=== PATIENT | female | born 1950 | race Caucasian/White ===

== ENCOUNTER 2020-04-07 09:57 | Outpatient (CLI) | payer MEDICARE, SELFPAY ==
--- NOTE | ~2020-04-07 | CT_ITS ---
EXAMINATION: CT chest high resolution wo nv DATE: 04/07/2020 10:20 INDICATION: Sarcoidosis TECHNIQUE: Computed tomography (CT) of the chest was performed without intravenous contrast. The dose -length product (DLP) was 225.26 mGy-cm. Automated exposure control and iterative reconstruction tech nique were employed. COMPARISON: None FINDINGS: There is scarring and atelectasis of the upper lobes. There are tiny 1 to 2 mm nodules with upper lobe predominance which appear to be in a perilymphatic distribution. There is no pleural effu anoop or pneumothorax. The heart size is normal. There is mild mediastinal and bilateral hilar lymphad enopathy with some of the lymph nodes demonstrating calcification. Calcified coronary artery atherosc lerosis is noted. There is mild thoracic spondylosis. A stone is present in the nondistended gallblad emily. IMPRESSION: 1. Tiny upper lobe predominant nodules which appear to be in a perilymphatic distribution along with mild calcified mediastinal lymphadenopathy. Findings are compatible with given history of sarcoidosis . 2. Cholelithiasis without evidence of cholecystitis. Reviewed, dictated and finalized at location A. IMPRESSION: 1. Tiny upper lobe predominant nodules which appear to be in a perilymphatic di stribution along with mild calcified mediastinal lymphadenopathy. Findings are compatible with given history of sarcoidosis. 2. Cholelithiasis without evidence of cholecystitis.
== END 2020-04-07 09:58 | disposition home or self-care (01) ==
LOC: ANHIMG 10:02
PROVIDERS: PCP Internal Medicine; Visit Provider Internal Medicine Critical Care Medicine
DX: D86.9 Sarcoidosis, unspecified (principal); K80.20 Calculus of gallbladder without cholecystitis without obstruction
CPT/HCPCS: 71250

== ENCOUNTER 2020-05-17 09:25 | Outpatient (CLI) | payer MEDICARE, SELFPAY ==
--- NOTE | 2020-05-20 13:38 | WPDPFTINT ---
PFT Interpretation PFT Interpretation: DOS: 05/17/2020 REQUESTING: Favio Gomez REASON FOR TESTING: Sarcoidosis PULMONARY FUNCTION TESTS Results are reliable. Spirometry: INS478%, FVC 85%< FEV1% 73%, all are normal. CND46-44% is low at 53%, increased by 12%, not much, after bronchodilator. FEV1 and FVC showed no change with bronchodilator. Lung volumes: TLC 89%, normal. RV/TLC is above normal consistent with air trapping. Increased airway resistance 232%. Diffusion: DLCO 71%, this is mildly decreased. Flow volume loop: Mixed scooping of the expiratory limb. IMPRESSION: Air trapping is consistent with an obstructive process. Mild diffusion abnormality. No prior studies to compare. This study is consistent with sarcoidosis. Susy Shipley MD
== END 2020-05-17 09:26 | disposition home or self-care (01) ==
LOC: ANHPFT 09:26
PROVIDERS: PCP Internal Medicine; Visit Provider Internal Medicine Critical Care Medicine
DX: D86.9 Sarcoidosis, unspecified (principal)
CPT/HCPCS: 94060; 94726; 94729

== ENCOUNTER 2021-05-10 17:53 | Emergency (ER) | payer MEDICARE, SELFPAY ==
--- NOTE | 2021-05-10 19:34 | PC.NURSE ---
pt called at 1927, no response. pt called again at 1942, no response. assumed pt left facility.
== END 2021-05-10 19:34 | disposition left against medical advice (07) ==
LOC: ANHED 19:41
DX: Z53.21 Procedure and treatment not carried out due to patient leaving prior to being seen by health care provider (principal)
CPT/HCPCS: 99199

== ENCOUNTER 2021-09-11 07:51 | Outpatient (CLI) | payer MEDICARE, SELFPAY | END 2021-09-11 07:52 | disposition home or self-care (01) | LOC: ANHAUDIO 07:53 | PROVIDERS: Visit Provider Nurse Practitioner Family | DX: H93.19 Tinnitus, unspecified ear (principal); R42 Dizziness and giddiness; H90.3 Sensorineural hearing loss, bilateral | CPT/HCPCS: 92537; 92540; 92546; 92557; 92567 ==

== ENCOUNTER 2022-12-31 00:27 | Day surgery (SDC) | payer MEDICARE, SELFPAY ==
[2022-12-19 11:31] VITALS: BMI 31.0
--- NOTE | 2022-12-30 10:42 | PM.HPGS ---
History of Present Illness History of Present Illness Consent: Risks, benefits, and alternatives have been discussed and questions answered. Patient agrees to proceed with procedure. Chief complaint: abdominal pain Narrative: Nancy Galvan is a 72 year old female referred for colon cancer screening. Her last colonoscopy was 13 years ago. Review of Systems Review of Systems: All systems reviewed & are unremarkable except as noted in HPI and below PMFSH Past Medical History Medical History Anxiety state Asthma Backache Depressive disorder Diabetes Disorder of shoulder Dysuria Encounter for Papanicolaou smear for cervical cancer screening Herpes zoster hsv I & II Hip pain Hyperlipidemia Hypothyroidism Sarcoid Screening mammogram, encounter for Spinal enthesopathy Surgical History Surgical History Delivery by section 1971, 1973 History of appendectomy History of carpal tunnel surgery History of cataract surgery 11/19/17 left eye History of knee replacement procedure of right knee History of liver biopsy 1996 Hx of tonsillectomy Previous back surgery 10/30/18 Family History Family History Mother Thyroid disease Father Cerebrovascular accident Parkinson disease Malignant neoplasm of eye Transient cerebral ischemia Chronic obstructive lung disease Sibling Transient cerebral ischemia Social History Social History Smoking packs per day: 1 Smoking cigarettes per day: 20.0 Years smoked: 10 Smoking pack-years: 10.00 Smoking status: Former smoker Tobacco type: cigarettes Alcohol intake: current Alcohol use details: rarely Substance use: never Substance use type: does not use Living arrangements: with family Additional living arrangements comments: Occupation/Education: retired Gender identity (if verbalized by the patient): Female Sexual Orientation (if Verbalized by the Patient): Straight or Heterosexual Spiritual care concerns: No Meds Home Medications and Allergies Home Medications Medication Instructions Recorded Confirmed Type atorvastatin 40 mg tablet 40 mg PO DAILY 01/14/20 12/19/22 History metformin 500 mg tablet 1,000 mg PO BID 01/14/20 12/19/22 History glimepiride 1 mg tablet 1 mg PO DAILY 12/19/22 12/19/22 History levothyroxine 100 mcg tablet 100 mcg PO DAILY 12/19/22 12/19/22 History meloxicam 15 mg tablet 15 mg PO DAILY 12/19/22 12/19/22 History Allergies Allergy/AdvReac Type Severity Reaction Status Date / Time No Known Allergies Allergy Verified 12/31/22 11:49 Exam Const: General: alert Orientation/consciousness: patient oriented x3 Resp: Auscultation: clear to auscultation bilaterally Cardio: Rhythm: regular rhythm GI: GI Palp: Yes Soft to palpation and No Tenderness to palpation present (GI) Neuro: General: patient oriented x3 Assessment and Plan Assessment and plan (1) Colon cancer screening: Code(s): Z12.11 - Encounter for screening for malignant neoplasm of colon Status: Acute Assessment and Plan: Colonoscopy with possible biopsy or polypectomy or cautery or injection of substances.
[2022-12-31 11:49] VITALS: BP 141/81; PULSE 88; RESP 18; TEMP 36.6; O2SAT 98
[2022-12-31] MEDS: LACTATED RINGERS 1,000 ML 150 ML IV CONT (12:03)
[2022-12-31 12:04] LABS: Glucose Point of Care 177 mg/dl (65-105)
--- NOTE | 2022-12-31 12:15 | WPDANESEPPF ---
Anes - Initial Pre Proc Eval Procedure: Operation Date: 12/31/22 13:00 Proposed Procedures p Colonoscopy - Tomy Wolff MD Date/Time: 12/31/22 12:15 Surgeon: Tomy oWlff MD Pre Op Diagnosis: abdominal pain Patient Data Age: 72 Gender: F Height: 1.6 m Weight: 78.5 kg Last Vital Signs Temp 97.9 F 12/31/22 11:49 Pulse 88 12/31/22 11:49 Resp 18 12/31/22 11:49 BP 141/81 H 12/31/22 11:49 Pulse Ox 98 12/31/22 11:49 O2 Del Method Room Air 12/31/22 11:49 Allergies Allergy/AdvReac Type Severity Reaction Status Date / Time No Known Allergies Allergy Verified 12/31/22 11:49 Home Medications Medication Instructions Recorded Confirmed Type atorvastatin 40 mg tablet 40 mg PO DAILY 01/14/20 12/19/22 History metformin 500 mg tablet 1,000 mg PO BID 01/14/20 12/19/22 History glimepiride 1 mg tablet 1 mg PO DAILY 12/19/22 12/19/22 History levothyroxine 100 mcg tablet 100 mcg PO DAILY 12/19/22 12/19/22 History meloxicam 15 mg tablet 15 mg PO DAILY 12/19/22 12/19/22 History Laboratory Tests 12/31/22 12:00 POC Capillary Glucose 177 mg/dl H mg/dl (65-105) Patient hx anesthesia problems: none Family hx anesthesia problems: none Results Review: All pre-operative results and documents have been reviewed as part of the pre-operative evaluation. [facility] Past Medical History Medical History Anxiety state Asthma Backache Depressive disorder Diabetes Disorder of shoulder Dysuria Encounter for Papanicolaou smear for cervical cancer screening Herpes zoster hsv I & II Hip pain Hyperlipidemia Hypothyroidism Sarcoid Screening mammogram, encounter for Spinal enthesopathy Surgical History Surgical History Delivery by section 1971, 1973 History of appendectomy History of carpal tunnel surgery History of cataract surgery 11/19/17 left eye History of knee replacement procedure of right knee History of liver biopsy 1996 Hx of tonsillectomy Previous back surgery 10/30/18 Family History Family History Mother Thyroid disease Father Cerebrovascular accident Parkinson disease Malignant neoplasm of eye Transient cerebral ischemia Chronic obstructive lung disease Sibling Transient cerebral ischemia Social History Social History Smoking packs per day: 1 Smoking cigarettes per day: 20.0 Years smoked: 10 Smoking pack-years: 10.00 Smoking status: Former smoker Tobacco type: cigarettes Alcohol intake: current Alcohol use details: rarely Substance use: never Substance use type: does not use Living arrangements: with family Additional living arrangements comments: Occupation/Education: retired Gender identity (if verbalized by the patient): Female Sexual Orientation (if Verbalized by the Patient): Straight or Heterosexual Spiritual care concerns: No Anes - Eval Final PreProcedure Day of Procedure 12/31/22 12:15 Patient weight: obese Heart: regular rate and rhythm Lungs: clear to auscultation Airway: Mallampati scale class II Neurological: alert and oriented Last oral intake: >/= 8 hours ASA classification: III Emergent: no Anesthetic plan: proceed Anesthesia type and monitoring: general GIVS and standard monitoring Results Review: All pre-operative results and documents have been reviewed as part of the pre-operative evaluation. Informed Consent: The patient's anesthetic plan and its attendant risks and benefits were discussed with the patient/family/POA. Questions were solicited and answers provided to the satisfaction of the patient/family/POA.
[2022-12-31] MEDS: SIMETHICONE ORAL SUSPENSION 20 MG/0.3 ML 30 ML BOTTLE 0.6 ML IRRIGATION (12:44)
[2022-12-31 12:53] VITALS: BP 121/64; PULSE 83; RESP 20; O2SAT 95
[2022-12-31 13:03] VITALS: BP 126/68; PULSE 81; RESP 18; O2SAT 97
[2022-12-31 13:13] VITALS: BP 130/72; PULSE 78; RESP 19; O2SAT 97
== END 2022-12-31 13:17 | disposition home or self-care (01) ==
PROVIDERS: PCP Internal Medicine; Visit Provider Internal Medicine Gastroenterology
PROC: 0DJD8ZZ Inspection of Lower Intestinal Tract, Via Natural or Artificial Opening Endoscopic (ICD-10-PCS; CPT 45378; principal; 2022-12-31 13:00)
DX: Z12.11 Encounter for screening for malignant neoplasm of colon (principal); K57.30 Diverticulosis of large intestine without perforation or abscess without bleeding; K64.8 Other hemorrhoids; K64.4 Residual hemorrhoidal skin tags; E11.9 Type 2 diabetes mellitus without complications; E03.9 Hypothyroidism, unspecified; E78.5 Hyperlipidemia, unspecified; F32.A Depression, unspecified; F41.9 Anxiety disorder, unspecified; Z87.891 Personal history of nicotine dependence; Z79.84 Long term (current) use of oral hypoglycemic drugs; E66.9 Obesity, unspecified; Z68.30 Body mass index [BMI] 30.0-30.9, adult
CPT/HCPCS: G0121; 82948; J2704; J7120

== ENCOUNTER 2024-06-04 11:58 | Outpatient (CLI) | payer MEDICARE, SELFPAY ==
--- NOTE | ~2024-06-04 | MR_ITS ---
EXAMINATION: MR brain IAC wo/w con DATE: 06/04/2024 12:58 INDICATION: Vertigo. TECHNIQUE: Magnetic resonance imaging (MRI) of the brain, brainstem, and internal auditory canals was performed without and with 15 mL MultiHance intravenous contrast. COMPARISON: None. FINDINGS: There is no intracranial hemorrhage, acute infarction, or abnormal intracranial mass lesion . There are scattered areas of nonspecific increased T2-weighted signal intensity in the cerebral whi te matter and judy. The ventricles are normal in size. The paranasal sinuses are clear. There are lik jennifer changes of ocular lens replacement surgeries. The internal auditory canals, inner ears, tympanic cavities, and mastoid air cells are normal. IMPRESSION: 1. Mild nonspecific cerebral white matter disease and pontine disease, which likely represents chroni c small vessel ischemic disease. Reviewed, dictated and finalized at location A. IMPRESSION: 1. Mild nonspecific cerebral white matter disease and pontine disease, which karoline jarquin represents chronic small vessel ischemic disease.
== END 2024-06-04 11:59 | disposition home or self-care (01) ==
LOC: ANHIMG 11:59
PROVIDERS: PCP Internal Medicine; Visit Provider Internal Medicine
DX: R90.82 White matter disease, unspecified (principal); G93.89 Other specified disorders of brain; R42 Dizziness and giddiness
CPT/HCPCS: 70553; A9577

== ENCOUNTER 2024-07-17 13:59 | Outpatient (CLI) | payer MEDICARE, SELFPAY ==
[2024-07-17 14:29] LABS: Basophils Percent Auto 0.6 % (0.2-1.2); Eosinophils Absolute Auto 0.2 K/mm3 (0-0.3); Eosinophils Percent Auto 2.2 % (0-4.4); Hematocrit 41.3 % (37.0-47.0); Hemoglobin 14.2 g/dL (12.0-15.0); Immature Granulocyte Absolute 0.03 K/mm3 (0.00-0.031); Immature Granulocyte Percent A 0.4 % (0-0.5); Lymphocytes Absolute Auto 1.33 K/mm3 (0.9-3.2); Lymphocytes Percent Auto 19.1 % (18.3-44.2); Mean Corpuscular HGB Conc 34.4 g/dl (32-36); Mean Corpuscular Hemoglobin 32.9 pg (26-34); Mean Corpuscular Volume 95.6 fl (80-100); Mean Platelet Volume 10.8 fl (7.4-10.4); Monocytes Absolute Auto 0.4 K/mm3 (0.1-0.6); Monocytes Percent Auto 6.3 % (2.6-8.5); Neutrophils Percent Auto 71.4 % (45.5-73.1); Platelet Count Result 261 k/mm3 (150-375); Red Blood Count 4.32 M/mm3 (4.2-5.4); Red Cell Distribution Width 12.4 % (11.5-14.5)
[2024-07-17 14:48] LABS: Alanine Aminotransferase 18 U/L (6-35); Albumin Level 4.3 g/dL (3.5-5.1); Alkaline Phosphatase 106 U/L (38-126); Anion Gap 10 mmol/L (4-12); Aspartate Amino Transferase 27 U/L (14-36); Bilirubin,Total 0.5 mg/dL (0.2-1.3); Blood Urea Nitrogen 12 mg/dL (7-17); Calcium 9.6 mg/dL (8.4-10.2); Carbon Dioxide 27 mmol/L (22-30); Chloride 98 mmol/L (98-107); Cholesterol 155 mg/dL (0-200); Estimated Glomerular Filt Rate > 60; Glucose 197 mg/dL (65-110); HDL Direct 57 mg/dL; Potassium 4.5 mmol/L (3.4-5.0); Sodium 135 mmol/L (137-145); Triglycerides 254 mg/dL (<150)
[2024-07-17 14:57] LABS: Hemoglobin A1C 7.7 % (<5.7)
[2024-07-17 15:06] LABS: Creatinine Urine 124.9 mg/dL
[2024-07-17 15:08] LABS: Microalbumin Urine Random 8.8 mg/L (0-16.7)
[2024-07-17 15:15] LABS: Free T4 Free Thyroxine 0.94 ng/mL (0.78-2.19)
[2024-07-17 17:26] LABS: LDL Cholesterol Direct < 30 mg/dL
[2024-07-18 10:44] LABS: Triiodothyronine T3 Free 2.5 pg/mL (2.3-4.2)
== END 2024-07-17 14:00 | disposition home or self-care (01) ==
LOC: ANHLAB 14:03
PROVIDERS: PCP Internal Medicine; Visit Provider Internal Medicine
DX: E11.9 Type 2 diabetes mellitus without complications (principal); I10 Essential (primary) hypertension
CPT/HCPCS: 36415; 80053; 80061; 82043; 83036; 84439; 84443; 84481; 85025

== ENCOUNTER 2024-07-29 12:32 | Outpatient (CLI) | payer MEDICARE, SELFPAY ==
--- NOTE | 2024-07-29 14:25 | NEURO_ITS ---
Impression: # Known diabetic complains of numbness in all extremities. # Normal motor/sensory Nerve Conduction Study. # Normal needle/EMG exam. # Clinical correlation recommended. Problem could be related to small fiber neuropathy Nerve Conduction Studies Anti Sensory Summary Table Stim Site NR Peak (ms) P-T Amp (?V) Site1 Site2 Delta-P (ms) Dist (cm) Jerome (m/s) Left Median Anti Sensory (2-3nd Digit) Wrist 2.8 52.9 Wrist 2-3nd Digit 2.8 14.0 50 Wrist 2.8 30.7 Wrist 2-3nd Digit 2.8 14.0 50 Right Median Anti Sensory (2-3nd Digit) Wrist 2.8 27.3 Wrist 2-3nd Digit 2.8 14.0 50 Wrist 2.9 60.7 Wrist 2-3nd Digit 2.8 14.0 50 Left Radial Anti Sensory (Base 1st Digit) Wrist 1.8 54.6 Wrist Base 1st Digit 1.8 0.0 Right Radial Anti Sensory (Base 1st Digit) Wrist 1.9 23.2 Wrist Base 1st Digit 1.9 0.0 Left Sup Fibular Anti Sensory (Ant Lat Mall) 14 cm 3.4 6.7 14 cm Ant Lat Mall 3.4 16.0 47 Right Sup Fibular Anti Sensory (Ant Lat Mall) 14 cm 3.2 8.5 14 cm Ant Lat Mall 3.2 16.0 50 Left Sural Anti Sensory (Lat Mall) Calf 3.6 8.2 Calf Lat Mall 3.6 16.0 44 Right Sural Anti Sensory (Lat Mall) Calf 3.9 10.9 Calf Lat Mall 3.9 16.0 41 Left Ulnar Anti Sensory (5th Digit) Wrist 2.4 54.2 Wrist 5th Digit 2.4 14.0 58 Right Ulnar Anti Sensory (5th Digit) Wrist 2.2 42.2 Wrist 5th Digit 2.2 14.0 64 Motor Summary Table Stim Site NR Onset (ms) O-P Amp (mV) Site1 Site2 Delta-0 (ms) Dist (cm) Jerome (m/s) Left Median Motor (Abd Poll Brev) Wrist 3.5 3.2 Elbow Wrist 4.5 26.0 58 Elbow 8.0 1.4 Right Median Motor (Abd Poll Brev) Wrist 3.4 6.6 Elbow Wrist 5.3 28.0 53 Elbow 8.7 5.4 Left Peroneal Motor (Vastus Med) Ankle 4.4 3.0 Popit Ankle 8.7 38.0 44 Popit 13.1 3.4 Right Peroneal Motor (Vastus Med) Ankle 4.0 1.4 Popit Ankle 8.9 37.0 42 Popit 12.9 1.5 Left Tibial Motor (Abd Cristina Brev) Ankle 4.9 6.0 Knee Ankle 8.1 38.0 47 Knee 13.0 3.0 Right Tibial Motor (Abd Cristina Brev) Ankle 4.6 6.3 Knee Ankle 9.8 37.0 38 Knee 14.4 2.8 Left Ulnar Motor (Abd Dig Minimi) Wrist 2.7 8.4 A Elbow Wrist 5.0 28.0 56 A Elbow 7.7 6.4 Right Ulnar Motor (Abd Dig Minimi) Wrist 2.4 7.5 A Elbow Wrist 5.2 28.0 54 A Elbow 7.6 6.0 F Wave Studies NR F-Lat (ms) L-R F-Lat (ms) Left Median (Mrkrs) (Abd Poll Brev) 26.56 0.07 Right Median (Mrkrs) (Abd Poll Brev) 26.49 0.07 Left Peroneal (Mrkrs) (EDB) 56.27 0.10 Right Peroneal (Mrkrs) (EDB) 56.17 0.10 Left Tibial (Mrkrs) (Abd Hallucis) 55.22 1.20 Right Tibial (Mrkrs) (Abd Hallucis) 56.41 1.20 Left Ulnar (Mrkrs) (Abd Dig Min) 25.93 1.38 Right Ulnar (Mrkrs) (Abd Dig Min) 27.31 1.38 EMG Side Muscle Nerve Root Ins Act Fibs Amp Dur Recrt Comment Right 1stDorInt Ulnar C8-T1 Nml Nml Nml Nml Nml Right Ext Indicis Radial (Post Int) C7-8 Nml Nml Nml Nml Nml Right Ext Digitorum Radial (Post Int) C7-8 Nml Nml Nml Nml Nml Right BrachioRad Radial C5-6 Nml Nml Nml Nml Nml Right PronatorTeres Median C6-7 Nml Nml Nml Nml Nml Right Abd Poll Brev Median C8-T1 Nml Nml Nml Nml Nml Right ABD Dig Min Ulnar C8-T1 Nml Nml Nml Nml Nml Right AntTibialis Dp Br Fibular L4-5 Nml Nml Nml Nml Nml Right Gastroc Tibial S1-2 Nml Nml Nml Nml Nml Right Fibularis Long Sup Br Fibular L5-S1 Nml Nml Nml Nml Nml Right Flex Dig Long Tibial L5-S2 Nml Nml Nml Nml Nml Right Ext Dig Brev Dp Br Fibular L5, S1 Nml Nml Nml Nml Nml Right QuadratusFem QuadFemoris L4-5, S1 Nml Nml Nml Nml Nml Left AntTibialis Dp Br Fibular L4-5 Nml Nml Nml Nml Nml Left Gastroc Tibial S1-2 Nml Nml Nml Nml Nml Left Fibularis Long Sup Br Fibular L5-S1 Nml Nml Nml Nml Nml Left Flex Dig Long Tibial L5-S2 Nml Nml Nml Nml Nml Left Ext Dig Brev Dp Br Fibular L5, S1 Nml Nml Nml Nml Nml Left QuadratusFem QuadFemoris L4-5, S1 Nml Nml Nml Nml Nml Left 1stDorInt Ulnar C8-T1 Nml Nml Nml Nml Nml Left Ext Indicis Radial (Post Int) C7-8 Nml Nml Nml Nml Nml Left Ext Digitorum Radial (Post Int) C7-8 Nml Nml Nml Nml Nml Left BrachioRad Radial C5-6 Nml Nml Nml Nml Nml Left PronatorTeres Median C6-7 Nml Nml Nml Nml Nml Left Abd Poll Brev Median C8-T1 Nml Nml Nml Nml Nml Left ABD Dig Min Ulnar C8-T1 Nml Nml Nml Nml Nml MTDD
== END 2024-07-29 12:33 | disposition home or self-care (01) ==
LOC: ANHNEURO 12:34
PROVIDERS: PCP Internal Medicine; Visit Provider Internal Medicine
DX: R20.2 Paresthesia of skin (principal); E11.9 Type 2 diabetes mellitus without complications
CPT/HCPCS: 95886; 95913

== ENCOUNTER 2024-11-13 10:43 | Outpatient (CLI) | payer MEDICARE, SELFPAY ==
[2024-11-13 11:44] LABS: Basophils Percent Auto 0.6 % (0.2-1.2); Eosinophils Absolute Auto 0.2 K/mm3 (0-0.3); Eosinophils Percent Auto 3.2 % (0-4.4); Hematocrit 44.9 % (37.0-47.0); Hemoglobin 14.8 g/dL (12.0-15.0); Immature Granulocyte Absolute 0.02 K/mm3 (0.00-0.031); Immature Granulocyte Percent A 0.3 % (0-0.5); Lymphocytes Absolute Auto 1.03 K/mm3 (0.9-3.2); Lymphocytes Percent Auto 15.1 % (18.3-44.2); Mean Corpuscular Hemoglobin 31.6 pg (26-34); Mean Corpuscular Volume 95.9 fl (80-100); Mean Platelet Volume 11.8 fl (7.4-10.4); Monocytes Absolute Auto 0.4 K/mm3 (0.1-0.6); Monocytes Percent Auto 6.4 % (2.6-8.5); Neutrophils Absolute Auto 5.1 K/mm3 (1.3-6.7); Neutrophils Percent Auto 74.4 % (45.5-73.1); Platelet Count Result 219 k/mm3 (150-375); Red Blood Count 4.68 M/mm3 (4.2-5.4); Red Cell Distribution Width 13.4 % (11.5-14.5); White Blood Count 6.8 K/mm3 (4.5-10.0)
[2024-11-13 12:14] LABS: Alanine Aminotransferase 21 U/L (6-35); Albumin Level 4.3 g/dL (3.5-5.1); Alkaline Phosphatase 125 U/L (38-126); Anion Gap 11 mmol/L (4-12); Aspartate Amino Transferase 23 U/L (14-36); Bilirubin,Total 0.7 mg/dL (0.2-1.3); Blood Urea Nitrogen 14 mg/dL (7-17); Calcium 9.9 mg/dL (8.4-10.2); Carbon Dioxide 27 mmol/L (22-30); Chloride 100 mmol/L (98-107); Cholesterol 175 mg/dL (0-200); Estimated Glomerular Filt Rate > 60; Glucose 148 mg/dL (65-110); HDL Direct 58 mg/dL; Sodium 138 mmol/L (137-145); Triglycerides 252 mg/dL (<150)
[2024-11-13 12:22] LABS: Creatinine Urine 79.2 mg/dL
[2024-11-13 12:26] LABS: LDL Cholesterol Direct < 30 mg/dL
[2024-11-13 12:28] LABS: MALB Creatinine Ratio 10.1 mg/g (0-30)
[2024-11-13 12:44] LABS: Hemoglobin A1C 7.7 % (<5.7)
[2024-11-13 14:21] LABS: Free T3 2.82 pg/mL (2.45-5.93)
== END 2024-11-13 10:44 | disposition home or self-care (01) ==
LOC: ANHLAB 10:46
PROVIDERS: PCP Internal Medicine; Visit Provider Internal Medicine
DX: E11.9 Type 2 diabetes mellitus without complications (principal); I10 Essential (primary) hypertension
CPT/HCPCS: 36415; 80053; 80061; 82043; 83036; 84439; 84443; 84481; 85025

== ENCOUNTER 2025-02-16 08:27 | Outpatient (CLI) | payer MEDICARE, SELFPAY ==
--- NOTE | ~2025-02-16 | MM_ITS ---
PROCEDURE: MM SCREENING NIKITA BI W GEMMA INDICATION: Asymptomatic, referred for screening mammogram COMPARISON: 09/28/2013 through 04/19/2007 TECHNIQUE: Digital breast tomosynthesis craniocaudal and mediolateral oblique views of Both breasts w ere obtained with computer-aided detection to assist in interpretation of the study. FINDINGS: There are scattered areas of fibroglandular density. No focal dominant mass, architectural distortion, or suspicious microcalcifications are identified. There are no features to suggest malignancy. IMPRESSION: No evidence of malignancy in the breast. Recommend continued screening mammography BI-RADS 1, NEGATIVE Reviewed, dictated and finalized at location B.
--- OUTSIDE RECORDS SUMMARY | 2025-02-16 08:33 | XMS_ITS | CONTINUITY OF CARE DOCUMENT ---
Author Name ravi rodrigues Address Unknown Organization [facility] Office Address [address] [place] [address] Phone [phone] Care Team Providers Care Corporate General Manager Name Role Phone Caleb Guerrero MD Unavailable [phone] EDNA COOK DO Unavailable INSURANCE PROVIDERS Payer name Policy type / Coverage type [place] [employer] ID [place] MED[place] Medicare [id number]
--- OUTSIDE RECORDS SUMMARY | 2025-02-16 08:34 | XMS_ITS | Clinical Summary ---
Author Organization [facility] Address [address] [place] [address] Phone Care Team Providers Care Chemical Research Worker Name Role Phone Kvng Palomares MD Primary Care Provider Allergies No known active allergies Medications levothyroxine (SYNTHROID) 100 mcg Oral tablet Take 75 mcg by mouth daily . Active ezetimibe (ZETIA) 10 mg Oral tablet Take 10 mg by mouth daily. Active simvastatin (ZOCOR) 40 mg Oral tablet Take 40 mg by mouth daily. Active aspirin (GINI) 81 mg Oral Tab Take by mouth daily at bedtime . Active celecoxib (CELEBREX) 200 mg Oral capsule Take 1 Cap by mouth 2 times daily with meals. 60 Cap 0 3 Active metFORMIN (GLUCOPHAGE) 500 mg tablet Take 500 mg by mouth 2 times daily with meals. Active atorvastatin (LIPITOR) 40 mg tablet Take 40 mg by mouth daily with supper. Active PARoxetine HCl (PAXIL) 10 mg tablet Take 10 mg by mouth daily. Active naproxen sodium (ALEVE) 220 mg Tablet Take 440 mg by mouth 1 time daily as needed for Pain, Moderate. Active budesonide-form oterol (SYMBICORT) 160-4.5 mcg/actuation HFA Aerosol Inhaler Take 2 Puffs by inhalation 2 times daily. Active diazePAM (VALIUM) 5 mg tablet Take 1 Tablet (5 mg) by mouth every 8 hours as needed for Spasm. 90 Tablet 9 Active oxyCODONE (ROXICODONE) 10 mg tablet Take 1 Tablet (10 mg) by mouth every 4 hours as needed for Pain. 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 H/O sarcoidosis 01/06/2013 Hypothyroidism 01/06/2013 Hyperlipidemia 01/06/2013 Arthritis of knee, degenerative 12/31/2012 Immunizations Immunization Administration Dates Next Due Influenza Seasonal Unspecified Formulation IM ,05/17/2012 Family History Medical History Relation Name Comments Cancer Brother 1 Stroke Brother 2 Other Daughter Hypertension Father Stroke Father Healthy Son Relation Name Status Comments Brother 1 Alive Brother 2 Alive Daughter Alive Father Mother Son Alive Social History Tobacco Use Types Packs/Day Years Used Date Smoking Tobacco: Former Cigarettes Q uit: 05/09/1983 Smokeless Tobacco: Never Alcohol Use Standard Drinks/Week Comments Yes 0 (1 standard drink = 0.6 oz pur e alcohol) rarely Comments No Sex and Gender Information Value Date Recorded Sex Assigned at Not on file Legal Sex Female 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 Gender Identity Not on file Sexual Orientation Not on file Occupation Industry Job Start Date Job End Date Not on file Not on file Not on file Not on file Not on file Not on file Not on file Not on file Last Filed Vital Signs Vital Sign Reading Time Taken Comments Blood Pressure 129/65 11/03/2018 1:24 AM LABOR CONTRACT ANALYST Pulse 85 11/03/2018 1:24 AM LABOR CONTRACT ANALYST Temperature 37.1 C (98.8 F) 11/03/2018 1:24 AM LABOR CONTRACT ANALYST Respiratory Rate 16 11/03/2018 1:24 AM LABOR CONTRACT ANALYST Oxygen Saturation 94% 11/03/2018 1:24 AM LABOR CONTRACT ANALYST Inhaled Oxygen Concentration - - Weight 89.4 kg (197 lb 0.1 oz) 10/29/2018 7:00 P M LABOR CONTRACT ANALYST Height 160 cm (5' 3) 10/29/2018 7:00 PM LABOR CONTRACT ANALYST Body Mass Index 34.9 10/29/2018 7:00 PM LABOR CONTRACT ANALYST Plan of Treatment Health Maintenance Due Date Last Done Comments DIABETES ANNUAL FOOT EXAM 1970 DIABETES ANNUAL RETINAL EXAM 1970 DIABETES MICROALBUMIN ANNUAL SCREEN 1970 LDL CHOLESTEROL ANNUAL 1970 DTAP/TDAP/TD VACCINES (1 - Tdap) 1971 PNEUMOCOCCAL VACCINE 50+ YEA RS (1 of 2 - PCV) 1971 BREAST CANCER SCREENING 1992 COLORECTAL SCREENING 1997 Colorectal Cancer Screening 1997 FIT-DNA Q 3 years 1997 FIT/FOBT Q 1 year 1997 Flex Sig/CT Colonography Q 5 years 1997 ZOSTER VACCINE (1 of 2) 2002 OSTEOPOROSIS SCREENING 2017 DIABETES HBA1C Q 6 MONTHS 08/14/2020 02/12/2020 INFLUENZA VACCINE (#1) 2024 0, 08/04/2019, 05/17/2018, Additional history exists RSV VACCINE (60+ or ) (1 - 1-dose 75+ series) 2027 Medical Devices Implanted Type Area Asbestos Worker Device Identifier Shelf Expiration Date Model / Serial / Lot Sealant Floseal 10ml [id number] - [id number] Implanted:Qty: 1 on 06/06/2012 by Familia Carpenter MD at [facility] Biological CHAVIS- BIOSCIENCE 09/15/2013 [id number] / / [id number] Infuse Protein Kit [id number] - [id number] Implanted:Qty: 1 on 06/06/2012 at [facility] Spine Lumbar MEDTRONIC- SOFAMOR DANEK 11/14/2014 [id number] / / [id number] Sealant Floseal 10ml [id number] - [id number] Implanted:Qty: 1 on 06/06/2012 by Familia Carpenter MD at [facility] Biological N/A: Spine Lumbar CHAVIS- BIOSCIENCE 09/15/2013 [id number] / / [id number] Log - Bone & Biologicals - 1 - Bone Cube Canc 15ml [id number] Implanted:Qty: 1 on 06/06/[address] [facility] Bone Spine Lumbar ALLOSOURCE 05/23/2016 [id number] / [id number] / Log - Bone & Biologicals - 1 - Bone Cube Canc 15ml [id number] Implanted:Qty: 1 on 06/06/[address] [facility] Bone N/A: Spine Lumbar ALLOSOURCE 06/05/2016 [id number] / [id number] / Allgrft Spcr Lmnry T-Plif 11mm [id number] - [id number] Implanted:Qty: 1 on 06/06/2012 by Familia Carpenter MD at [facility] Bone N/A: Spine Lumbar MUSCULOSKELETAL TRANSPLANT FOU 01/27/2015 [id number] / [id number] / Cement [place] G-Hv 40g 145325 - [id number] Implanted:Qty: 1 on 01/05/2013 by Clarence Fuentes MD at [facility] Cement Right: Knee BIOMET INC 07/16/2014 [id number] / / [id number] Hemostatic Surgiflo 8ml W/Thrombin 2994 - [id number] Implanted:Qty: 1 on 10/29/2018 by Familia Carpenter MD at [facility] Hemostatic N/A: Back J&J- ETHICON INC 02/14/2020 2994 / / [id number] Hemostatic Surgiflo 8ml W/Thrombin 2994 - [id number] Implanted:Qty: 1 on 10/29/2018 by Familia Carpenter MD at [facility] Hemostatic N/A: Back J&J- ETHICON INC 02/14/2020 2994 / / [id number] Hemostatic Surgiflo 8ml W/Thrombin 2994 - [id number] Implanted:Qty: 1 on 10/29/2018 by Familia Carpenter MD at [facility] Hemostatic N/A: Back J&J- ETHICON INC 02/14/2020 2994 / / [id number] Hemostatic Surgiflo 8ml W/Thrombin 2994 - [id number] Implanted:Qty: 1 on 10/29/2018 by Familia Carpenter MD at [facility] Hemostatic N/A: Back J&J- ETH[employer]ON INC 02/14/2020 2994 / / [id number] Comp Tib Cocr Finned 67mm 199932 - [id number] Implanted:Qty: 1 on 01/05/2013 by Clarence Fuentes MD at [facility] Knee Right: Knee BIOMET INC 11/13/2022 [id number] / / [id number] Patella 3peg Series A [id number] - [id number] Implanted:Qty: 1 on 01/05/2013 by Clarence Fuentes MD at [facility] Knee Right: Knee BI[employer]ET INC 07/16/2017 285045 / / [id number] Comp Fem Vngrd Cr Intrlk Rt 65mm 485078 - [id number] Implanted:Qty: 1 on 01/05/2013 by Clarence Fuentes MD at [facility] Knee Right: Knee BIOMET INC 11/13/2022 424761 / / [id number] Brng Tib Vng Cr 10x63/67 972672 - [id number] Implanted:Qty: 1 on 01/05/2013 by Clarence Fuentes MD at [facility] Knee Right: Knee BI[employer]ET INC 10/16/2017 [id number] / / [id number] Bryant Xpdm Crv W/Line 65mm 1797-71-065 - [id number] Implanted:Qty: 2 on 10/29/2018 by Familia Carpenter MD at [facility] Bryant N/A: Back J&J- DEPUY SPINE INC [id number] / / Description:load #39 sterilized 10/13/18 Screw Exp Poly 7x45mm 1797-08-215 - [id number] Implanted:Qty: 2 on 06/06/[address] [facility] Screw N/A: Spine Lumbar J&J- DEPUY SPINE INC 342 / / Description:Load 47, 2011 Screw Exp Poly 6x45mm 17903-27-875 - [id number] Implanted:Qty: 4 on 10/29/2018 by Familia Carpenter MD at [facility] Screw N/A: Back J&J- DEPUY SPINE INC 420 / / Description:load #39 sterilized 10/13/18 Setscrew Inner 179 - [id number] Implanted:Qty: 6 on 10/29/2018 by Familia Carpenter MD at [facility] Screw N/A: Back J&J- DEPUY SPINE INC / / Description:load #39 sterilized 10/13/18 All Depuy spinal hardware was processed on requisition, [id number]. Parastructure Vivigen Matrix 10ml Bl-1500-003 - [id number] Implanted:Qty: 1 on 10/29/2018 by Familia Carpenter MD at [facility] Tissue N/A: Back LIFENET 10/14/2019 -1500-003 / [id number] / Description:[facility][id number] [facility] Vivigen Matrix 10ml -1500-003 - [id number] Implanted:Qty: 1 on 10/29/2018 by Familia Carpenter MD at [facility] Tissue N/A: Back LIFENET 10/14/2019 -1500-003 / [id number] / Description:REQ#[id number] Explanted Type Area Asbestos Worker Device Identifier Shelf Expiration Date Model / Serial / Lot Bryant Xpdm 5.5 Ti Prebnt 45mm 1797-72-045 - [id number] Implanted:Qty: 2 on 06/06/[address] [facility] Explanted:Qty: 2 on 10/29/2018 by Familia Carpenter MD at [facility] Bryant N/A: Spine Lumbar J&J- DEPUY SPINE INC 5 / / Description:Load 47, er 2011 Screw Exp Poly 6x45mm 1796-12-645 - [id number] Implanted:Qty: 2 on 06/06/[address] [facility] Explanted:Qty: 2 on 10/29/2018 by Familia Carpenter MD at [facility] Screw N/A: Spine Lumbar J&J- DEPUY SPINE INC 5 / / Description:Load 47, Septemb er [facility] - [id number] Implanted:Qty: 4 on 06/06/[address] [facility] Explanted:Qty: 4 on 10/29/2018 by Familia Carpenter MD at [facility] Screw N/A: Spine Lumbar J&J- DEPUY SPINE INC 0 / / Description:Load 47, Sept er 2011 Insurance MEDICARE PART A AND B Advance Directives For more information, please contact: [phone] Documents on File Type Date Recorded Patient Pie Topper Expl anation Advance Directive Living Will 10/13/2018 8:16 AM Advance Directive Living Will * Full Code (Latest Code Status on File) Date Activated Date Inactivated Comments 10/29/2018 12:16 PM 11/03/2018 5:21 PM * Full Code Date Activated Date Inactivated Comments 10/29/2018 5:42 AM 10/29/2018 12:16 PM * Full Code Date Activated Date Inactivated Comments 01/05/2013 1:37 PM 01/08/2013 1:34 PM * Full Code Date Activated Date Inactivated Comments 01/05/2013 8:19 AM 01/05/2013 1:37 PM * Full Code Date Activated Date Inactivated Comments 01/05/2013 7:35 AM 01/05/2013 8:19 AM Care Teams Chemical Research Worker Relationship Specialty Start Date End Date Kvng Palomares MD [address] [place] [address] PCP - General Internal Medicine 10/24/18
--- OUTSIDE RECORDS SUMMARY | 2025-02-16 08:34 | XMS_ITS | Data Portability ---
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 Name Role Phone EDNA PALOMARES Primary Care Provider Assessment Encounter Date Assessment Date Assessment LastModified by Organization Details LastModified Time 12/16/2023 12/16/2023 Blood work she can take some Pepcid [id number] r diagnosis and assessment and plan have been discussed obtain old records if she loses any more weight she is to call for further evaluation otherwise she can see me in 3 months Not available 12/16/2023 21:49:53 05/07/2024 05/07/2024 exam eduardo is unremarkable healthy lifestyle care instructions for overweight low-fat diet low-salt I nerve conduction studies for paresthesias MRI of the brain for her vertigo to include internal auditory meatus follow up after testing [email or web address] Not available 05/16/2024 20:08:02 07/16/2024 07/16/2024 she has to do more walking continue current therapy we will see her back in 3 months with blood work prior she is doing better with diet and we will start evaluating and getting things scheduled to close her quality gaps [email or web address] Not available 07/16/2024 21:47:30 10/08/2024 10/08/2024 healthy lifestyle care instructions. Mammogram. Blood work. Diabetic foot exam. See eye doctor yearly. We will continue current therapy follow up in 4 months [email or web address] Not available 10/25/2024 14:58:37 Plan of Treatment Reminders Order Date Submit Date Provider Last Modified By Organization Details Last Modified Time Details Appointments ANY 15 2024 11:00A Megan Palomares MD Not available Not available Not available Lab albumi n/jaspal parks , mass ratio, urine 2024 [facility], [address] [place] [address], [address], [place], [address], 11/16/2024 15:02:35 HbA1c (hemog lobin A1c), blood 2024 025 [facility], [address], [address] [facility], [place], [address], 11/16/2024 15:02:34 lipid panel, serum 2024 025 [facility], [address] [place] [address], [address], [place], [address], 11/16/2024 15:02:34 CBC w/ auto diff 2024 025 [facility], [address] [place] [address], [address], [place], [address], 11/16/2024 15:02:35 CMP, serum or plasma 2024 025 [facility], [address] [place] [address], [address], [place], [address], 11/16/2024 15:02:34 TSH, serum or plasma 2024 025 [facility], [address] [place] [address], [address], [place], [address], 11/16/2024 15:02:35 T4, free, serum 2024 025 [facility], [address] [place] [address] Alex, [address], [place], [address], 01/12/2025 14:55:52 T3, free, serum or plasma 2024 025 [facility], [address], [address], [place], [address], 11/16/2024 15:02:34 HbA1c (hemog lobin A1c), blood 2023 [facility], [address] [facility] [address], [address], [place], [address], 07/24/2024 10:00:29 albumi n/crea tinine , mass ratio, urine 2023 [facility], [facility] [address], [address], [place], [address], 07/24/2024 10:00:29 unlist ed lab - T4, free 2023 024 [facility], [facility] [address], [address], [place], [address], 07/24/2024 10:00:29 T3, free, serum or plasma 2023 024 [facility], [address], [address], [place], [address], 10/20/2024 13:04:04 TSH, ultra- sensit jaime, serum 2023 024 [facility], [facility] [address], [address], [place], [address], 07/24/2024 10:01:32 lipid panel, serum 2023 024 [facility], [address], [address], [place], [address], 07/24/2024 10:00:29 CMP, serum or plasma 2023 024 [facility], [address], [address], [place], [address], 07/24/2024 10:00:29 CBC w/ auto diff 2023 024 [facility], [address], [address], [place], [address], 07/24/2024 10:00:29 HbA1c (hemog lobin A1c), blood 2023 024 [facility], [address], [address], [place], [address], 05/12/2024 15:44:56 lipid panel, serum 2023 024 [facility], [address], [address], [place], [address], 05/07/2024 20:32:14 CMP, serum or plasma 2023 024 [email or web address] [facility], [address], [address], [place], [address], 07/20/2024 22:32:41 CBC w/ auto diff 2023 024 [facility], [address], [address], [place], [address], 05/12/2024 15:44:55 unlist ed lab - T4, free 2023 024 [facility], [address], [address], [place], [address], 05/12/2024 15:44:56 T3, free, serum or plasma 2023 024 [email or web address] [facility], [address], [address], [place], [address], 07/20/2024 22:32:41 TSH, ultra- sensit jaime, serum 2023 024 [facility], [address], [address], [place], [address], 05/12/2024 15:44:56 HbA1c (hemog lobin A1c), blood 2023 024 [facility], [address], [address], [place], [address], 12/18/2023 01:17:04 CBC w/ auto diff 2023 024 [facility], [address], [address], [place], [address], 12/18/2023 01:17:04 lipid panel, serum 2023 024 [facility], [address], [address], [place], [address], 12/18/2023 01:17:05 CMP, serum or plasma 2023 024 [facility], [address] [facility] [address], [place], [address], 12/18/2023 01:17:05 TSH, ultra- sensit jaime, serum 2023 024 [facility], [address], [address], [place], [address], 12/18/2023 01:17:05 T3, free, serum or plasma 2023 024 [email or web address], [address], [address], [place], [address], 04/10/2024 13:32:18 unlist ed lab - T4, free 2023 024 [facility], [address], [address], [place], [address], 04/10/2024 13:32:18 Referral podiat rist referr al 2024 025 [facility], [address], [address], [place], [address], 12/24/2024 14:02:26 Procedures None record ed. Surgeries None record ed. Imaging MAMMO, screen ing, digita l, bilate ral 2024 025 [facility] (Imaging), [address] [place] [address] [address]te [facility], [place], [address], 02/15/2025 16:01:10 MRI, brain + legal internship al audito ry canal, w/wo contra st 2023 024 [facility] (Imaging), [address] [place] [address] [place] [address], [address], 06/04/2024 17:45:45 nerve conduc tion study - NCS B/L Arms and Legs 2023 024 [facility] (Cardiology & Emg), [address] [place] [address] [place] [address], [address], 07/29/2024 16:38:18 Medication Orders None record ed. Patient TargetsNo targets recorded. Patient Instructions Encounter Date Encounter Id Patient Instructions Last Modified By Organization Details Last Modified Time 05/07/2024 [id number] A healthy lifestyle: care instructions [email or web address] Not available 05/07/2024 13:23:13 07/16/2024 [id number] A healthy lifestyle: care instructions [email or web address] Not available 07/16/2024 15:27:26 10/08/2024 [id number] A healthy lifestyle: care instructions Not available 10/08/2024 13:17:21 Reason for Referral Non Cdl Driver Referral for Type 2 diabetes mellitus Referring Physician: Edna Palomares, Internal Medicine, Encounter Date: 10/08/2024 Results Created Date Observation Date Name Description Value Unit Range Abnormal Flag Note LastModifiedBy Organization Detail LastModifiedTime 12/17/19 24 12/17/2023 Hemog lobin A1c/H emogl obin. total in Blood by HPLC hemoglobin A1C/hemoglob in.total in blood high HA1C Not Available Not Available 11/14 10:23:07 12/17/19 24 12/17/2023 Thyro tropi n [Unit s/vol ume] in Serum or Plasm a thyroid-stim ulating hormone high thyro id-st imula ting hormo ne Not Available Not Available 11/23/2024 10:23:07 12/17/19 24 12/17/2023 Triio dothy marleny e (T3) Free [Mass /volu me] in Serum or Plasm a free T3 free T3 Not Available Not Available 11/23/2024 10:23:07 12/17/19 24 12/17/2023 Thyro xine (T4) free [Mass /volu me] in Serum or Plasm a free T4 free T4 Not Available Not Available 11/23/2024 10:23:07 12/17/19 24 12/17/2023 Compr ehens jaime metab olic 1999 panel - Serum or Plasm a sodium sodiu m Not Available Not Available 11/23/2024 10:23:07 12/17/19 24 12/17/2023 Compr ehens jaime metab olic 1999 panel - Serum or Plasm a potassium potas sium Not Available Not Available 11/23/2024 10:23:07 12/17/19 24 12/17/2023 Compr ehens jaime metab olic 2000 panel - Serum or Plasm a chloride chlor scot Not Available Not Available 11/23/2024 10:23:07 12/17/19 24 12/17/2023 Compr ehens jaime metab olic 1999 panel - Serum or Plasm a carbon dioxide carbo n dioxi de Not Available Not Available 11/23/2024 10:23:07 12/17/19 24 12/17/2023 Compr ehens jaime metab olic 1999 panel - Serum or Plasm a anion gap low anion gap Not Available Not Available 11/23/2024 10:23:07 12/17/19 24 12/17/2023 Compr ehens jaime metab olic 1999 panel - Serum or Plasm a glucose high gluco se Not Available Not Available 11/23/2024 10:23:07 12/17/19 24 12/17/2023 Compr ehens jaime metab olic 1999 panel - Serum or Plasm a BUN low BUN Not Available Not Availa ble 11/23/2024 10:23:07 12/17/19 24 12/17/2023 Compr ehens jaime metab olic 1999 panel - Serum or Plasm a creatinine creat inine Not Available Not Available 11/23/2024 10:23:07 12/17/19 24 12/17/2023 Compr ehens jaime metab olic 2000 panel - Serum or Plasm a GFR >60 GFR Not Available Not Availa ble 11/23/2024 10:23:07 12/17/19 24 12/17/2023 Compr ehens jaime metab olic 1999 panel - Serum or Plasm a alkaline phosphatase alkal ine phosp hatas e Not Available Not Available 11/23/2024 10:23:07 12/17/19 24 12/17/2023 Compr ehens jaime metab olic 1999 panel - Serum or Plasm a alanine aminotransfe rase high amberly ne amino trans feras e Not Available Not Available 11/23/2024 10:23:07 12/17/19 24 12/17/2023 Compr ehens jaime metab olic 1999 panel - Serum or Plasm a aspartate aminotransfe rase high aspar ramsey amino trans feras e Not Available Not Available 11/23/2024 10:23:07 12/17/19 24 12/17/2023 Compr ehens jaime metab olic 2000 panel - Serum or Plasm a bilirubin, total bilir ubin, total Not Available Not Available 11/23/2024 10:23:07 12/17/19 24 12/17/2023 Compr ehens jaime metab olic 1999 panel - Serum or Plasm a calcium calci um Not Available Not Available 11/23/2024 10:23:07 12/17/19 24 12/17/2023 Compr ehens jaime metab olic 2000 panel - Serum or Plasm a total protein total prote in Not Available Not Available 11/23/2024 10:23:07 12/17/19 24 12/17/2023 Compr ehens jaime metab olic 2000 panel - Serum or Plasm a albumin album in Not Available Not Available 11/23/2024 10:23:07 12/17/19 24 12/17/2023 Compr ehens jaime metab olic 1999 panel - Serum or Plasm a globulin globu john Not Available Not Available 11/23/2024 10:23:07 12/17/19 24 12/17/2023 Compr ehens jaime metab olic 2000 panel - Serum or Plasm a A/G ratio A/G ratio Not Available Not Available 11/23/2024 10:23:07 12/17/19 24 12/17/2023 Lipid 1996 panel - Serum or Plasm a cholesterol high margret stero l Not Available Not Available 11/23/2024 10:23:06 12/17/19 24 12/17/2023 Lipid 1996 panel - Serum or Plasm a triglyceride s high trigl yceri reggie Not Available Not Available 11/23/2024 10:23:06 12/17/19 24 12/17/2023 Lipid 1996 panel - Serum or Plasm a HDL cholesterol HDL margret stero l Not Available Not Available 11/23/2024 10:23:06 12/17/19 24 12/17/2023 CBC W Auto Diffe renti al panel - Blood white blood cells white blood cells Not Available Not Available 11/23/2024 10:23:06 12/17/19 24 12/17/2023 CBC W Auto Diffe renti al panel - Blood red blood cells red blood cells Not Available Not Available 11/23/2024 10:23:06 12/17/19 24 12/17/2023 CBC W Auto Diffe renti al panel - Blood hemoglobin hemog lobin Not Available Not Available 11/23/2024 10:23:06 12/17/19 24 12/17/2023 CBC W Auto Diffe renti al panel - Blood hematocrit hemat ocrit Not Available Not Available 11/23/2024 10:23:06 12/17/19 24 12/17/2023 CBC W Auto Diffe renti al panel - Blood mean red cell volume mean red cell volum e Not Available Not Available 11/23/2024 10:23:06 12/17/19 24 12/17/2023 CBC W Auto Diffe renti al panel - Blood mean red cell hemoglobin mean red cell hemog lobin Not Available Not Available 11/23/2024 10:23:06 12/17/19 24 12/17/2023 CBC W Auto Diffe renti al panel - Blood mean RBC HGB concentratio n mean RBC HGB jose armando ntrat ion Not Available Not Available 11/23/2024 10:23:06 12/17/19 24 12/17/2023 CBC W Auto Diffe renti al panel - Blood red cell distribution width red cell distr ibuti on width Not Available Not Available 11/23/2024 10:23:06 12/17/19 24 12/17/2023 CBC W Auto Diffe renti al panel - Blood platelets plate lets Not Available Not Available 11/23/2024 10:23:06 12/17/19 24 12/17/2023 CBC W Auto Diffe renti al panel - Blood mean platelet volume high mean plate let volum e Not Available Not Available 11/23/2024 10:23:06 12/17/19 24 12/17/2023 CBC W Auto Diffe renti al panel - Blood neutrophils neutr ophil s Not Available Not Available 11/23/2024 10:23:06 12/17/19 24 12/17/2023 CBC W Auto Diffe renti al panel - Blood lymphocytes lymph ocyte s Not Available Not Available 11/23/2024 10:23:06 12/17/19 24 12/17/2023 CBC W Auto Diffe renti al panel - Blood monocytes monoc ytes Not Available Not Available 11/23/2024 10:23:06 12/17/19 24 12/17/2023 CBC W Auto Diffe renti al panel - Blood eosinophils eosin ophil s Not Available Not Available 11/23/2024 10:23:06 12/17/19 24 12/17/2023 CBC W Auto Diffe renti al panel - Blood basophils basop hils Not Available Not Available 11/23/2024 10:23:06 12/17/19 24 12/17/2023 CBC W Auto Diffe renti al panel - Blood immature granulocytes immat ure granu locyt es Not Available Not Available 11/23/2024 10:23:06 12/17/19 24 12/17/2023 CBC W Auto Diffe renti al panel - Blood neutrophils, absolute count neutr ophil s, absol houlton count Not Available Not Available 11/23/2024 10:23:06 12/17/19 24 12/17/2023 CBC W Auto Diffe renti al panel - Blood lymphocytes, absolute count lymph ocyte s, absol houlton count Not Available Not Available 11/23/2024 10:23:06 12/17/19 24 12/17/2023 CBC W Auto Diffe renti al panel - Blood monocytes, absolute count monoc ytes, absol houlton count Not Available Not Available 11/23/2024 10:23:06 12/17/19 24 12/17/2023 CBC W Auto Diffe renti al panel - Blood eosinophils, absolute count eosin ophil s, absol houlton count Not Available Not Available 11/23/2024 10:23:06 12/17/19 24 12/17/2023 CBC W Auto Diffe renti al panel - Blood basophils, absolute count basop hils, absol houlton count Not Available Not Available 11/23/2024 10:23:06 12/17/19 24 12/17/2023 CBC W Auto Diffe renti al panel - Blood immature granulocytes ,absolute immat ure granu locyt es,ab solut e Not Available Not Available 11/23/2024 10:23:06 12/17/19 24 12/17/2023 CBC W Auto Diffe renti al panel - Blood nucleated red blood cells nucle ated red blood cells Not Available Not Available 11/23/2024 10:23:06 12/17/19 24 12/17/2023 CBC W Auto Diffe renti al panel - Blood NRBC# NRBC# Not Available Not Availa ble 11/23/2024 10:23:06 05/07/20 24 05/07/2024 Hemog lobin A1c/H emogl obin. total in Blood by HPLC hemoglobin A1C/hemoglob in.total in blood high HA1C Not Available Not Available 11/14 10:23:08 05/07/20 24 05/07/2024 Thyro tropi n [Unit s/vol ume] in Serum or Plasm a thyroid-stim ulating hormone high thyro id-st imula ting hormo ne Not Available Not Available 11/23/2024 10:23:08 05/07/20 24 05/07/2024 Triio dothy marleny e (T3) Free [Mass /volu me] in Serum or Plasm a free T3 free T3 Not Available Not Available 11/23/2024 10:23:08 05/07/20 24 05/07/2024 Thyro xine (T4) free [Mass /volu me] in Serum or Plasm a free T4 free T4 Not Available Not Available 11/23/2024 10:23:07 05/07/20 24 05/07/2024 Compr ehens jaime metab olic 1999 panel - Serum or Plasm a sodium low sodiu m Not Available Not Available 11/23/2024 10:23:07 05/07/20 24 05/07/2024 Compr ehens jaime metab olic 1999 panel - Serum or Plasm a potassium potas sium Not Available Not Available 11/23/2024 10:23:07 05/07/20 24 05/07/2024 Compr ehens jaime metab olic 1999 panel - Serum or Plasm a chloride chlor scot Not Available Not Available 11/23/2024 10:23:07 05/07/20 24 05/07/2024 Compr ehens jaime metab olic 1999 panel - Serum or Plasm a carbon dioxide carbo n dioxi de Not Available Not Available 11/23/2024 10:23:07 05/07/20 24 05/07/2024 Compr ehens jaime metab olic 1999 panel - Serum or Plasm a anion gap low anion gap Not Available Not Available 11/23/2024 10:23:07 05/07/20 24 05/07/2024 Compr ehens jaime metab olic 1999 panel - Serum or Plasm a glucose high gluco se Not Available Not Available 11/23/2024 10:23:07 05/07/20 24 05/07/2024 Compr ehens jaime metab olic 2000 panel - Serum or Plasm a BUN BUN Not Available Not Availa ble 11/23/2024 10:23:07 05/07/20 24 05/07/2024 Compr ehens jaime metab olic 1999 panel - Serum or Plasm a creatinine creat inine Not Available Not Available 11/23/2024 10:23:07 05/07/20 24 05/07/2024 Compr ehens jaime metab olic 2000 panel - Serum or Plasm a GFR >60 GFR Not Available Not Availa ble 11/23/2024 10:23:07 05/07/20 24 05/07/2024 Compr ehens jaime metab olic 2000 panel - Serum or Plasm a alkaline phosphatase high alkal ine phosp hatas e Not Available Not Available 11/23/2024 10:23:07 05/07/20 24 05/07/2024 Compr ehens jaime metab olic 1999 panel - Serum or Plasm a alanine aminotransfe rase amberly ne amino trans feras e Not Available Not Available 11/23/2024 10:23:07 05/07/20 24 05/07/2024 Compr ehens jaime metab olic 2000 panel - Serum or Plasm a aspartate aminotransfe rase aspar ramsey amino trans feras e Not Available Not Available 11/23/2024 10:23:07 05/07/20 24 05/07/2024 Compr ehens jaime metab olic 2000 panel - Serum or Plasm a bilirubin, total bilir ubin, total Not Available Not Available 11/23/2024 10:23:07 05/07/20 24 05/07/2024 Compr ehens jaime metab olic 2000 panel - Serum or Plasm a calcium calci um Not Available Not Available 11/23/2024 10:23:07 05/07/20 24 05/07/2024 Compr ehens jaime metab olic 2000 panel - Serum or Plasm a total protein total prote in Not Available Not Available 11/23/2024 10:23:07 05/07/20 24 05/07/2024 Compr ehens jiame metab olic 2000 panel - Serum or Plasm a albumin album in Not Available Not Available 11/23/2024 10:23:07 05/07/20 24 05/07/2024 Compr ehens jaime metab olic 2000 panel - Serum or Plasm a globulin globu john Not Available Not Available 11/23/2024 10:23:07 05/07/20 24 05/07/2024 Compr ehens jaime metab olic 2000 panel - Serum or Plasm a A/G ratio A/G ratio Not Available Not Available 11/23/2024 10:23:07 05/07/20 24 05/07/2024 Lipid 1995 panel - Serum or Plasm a cholesterol high margret stero l Not Available Not Available 11/23/2024 10:23:07 05/07/20 24 05/07/2024 Lipid 1996 panel - Serum or Plasm a triglyceride s high trigl yceri reggie Not Available Not Available 11/23/2024 10:23:07 05/07/20 24 05/07/2024 Lipid 1996 panel - Serum or Plasm a HDL cholesterol HDL margret stero l Not Available Not Available 11/23/2024 10:23:07 05/07/20 24 05/07/2024 CBC W Auto Diffe renti al panel - Blood white blood cells white blood cells Not Available Not Available 11/23/2024 10:23:07 05/07/20 24 05/07/2024 CBC W Auto Diffe renti al panel - Blood red blood cells red blood cells Not Available Not Available 11/23/2024 10:23:07 05/07/20 24 05/07/2024 CBC W Auto Diffe renti al panel - Blood hemoglobin hemog lobin Not Available Not Available 11/23/2024 10:23:07 05/07/20 24 05/07/2024 CBC W Auto Diffe renti al panel - Blood hematocrit hemat ocrit Not Available Not Available 11/23/2024 10:23:07 05/07/20 24 05/07/2024 CBC W Auto Diffe renti al panel - Blood mean red cell volume mean red cell volum e Not Available Not Available 11/23/2024 10:23:07 05/07/20 24 05/07/2024 CBC W Auto Diffe renti al panel - Blood mean red cell hemoglobin mean red cell hemog lobin Not Available Not Available 11/23/2024 10:23:07 05/07/20 24 05/07/2024 CBC W Auto Diffe renti al panel - Blood mean RBC HGB concentratio n mean RBC HGB jose armando ntrat ion Not Available Not Available 11/23/2024 10:23:07 05/07/20 24 05/07/2024 CBC W Auto Diffe renti al panel - Blood red cell distribution width red cell distr ibuti on width Not Available Not Available 11/23/2024 10:23:07 05/07/20 24 05/07/2024 CBC W Auto Diffe renti al panel - Blood platelets plate lets Not Available Not Available 11/23/2024 10:23:07 05/07/20 24 05/07/2024 CBC W Auto Diffe renti al panel - Blood mean platelet volume high mean plate let volum e Not Available Not Available 11/23/2024 10:23:07 05/07/20 24 05/07/2024 CBC W Auto Diffe renti al panel - Blood neutrophils high neutr ophil s Not Available Not Available 11/23/2024 10:23:07 05/07/20 24 05/07/2024 CBC W Auto Diffe renti al panel - Blood lymphocytes lymph ocyte s Not Available Not Available 11/23/2024 10:23:07 05/07/20 24 05/07/2024 CBC W Auto Diffe renti al panel - Blood monocytes monoc ytes Not Available Not Available 11/23/2024 10:23:07 05/07/20 24 05/07/2024 CBC W Auto Diffe renti al panel - Blood eosinophils eosin ophil s Not Available Not Available 11/23/2024 10:23:07 05/07/20 24 05/07/2024 CBC W Auto Diffe renti al panel - Blood basophils basop hils Not Available Not Available 11/23/2024 10:23:07 05/07/20 24 05/07/2024 CBC W Auto Diffe renti al panel - Blood immature granulocytes immat ure granu locyt es Not Available Not Available 11/23/2024 10:23:07 05/07/20 24 05/07/2024 CBC W Auto Diffe renti al panel - Blood neutrophils, absolute count neutr ophil s, absol houlton count Not Available Not Available 11/23/2024 10:23:07 05/07/20 24 05/07/2024 CBC W Auto Diffe renti al panel - Blood lymphocytes, absolute count lymph ocyte s, absol houlton count Not Available Not Available 11/23/2024 10:23:07 05/07/20 24 05/07/2024 CBC W Auto Diffe renti al panel - Blood monocytes, absolute count monoc ytes, absol houlton count Not Available Not Available 11/23/2024 10:23:07 05/07/20 24 05/07/2024 CBC W Auto Diffe renti al panel - Blood eosinophils, absolute count eosin ophil s, absol houlton count Not Available Not Available 11/23/2024 10:23:07 05/07/20 24 05/07/2024 CBC W Auto Diffe renti al panel - Blood basophils, absolute count basop hils, absol houlton count Not Available Not Available 11/23/2024 10:23:07 05/07/20 24 05/07/2024 CBC W Auto Diffe renti al panel - Blood immature granulocytes ,absolute immat ure granu locyt es,ab solut e Not Available Not Available 11/23/2024 10:23:07 05/07/20 24 05/07/2024 CBC W Auto Diffe renti al panel - Blood nucleated red blood cells nucle ated red blood cells Not Available Not Available 11/23/2024 10:23:07 05/07/20 24 05/07/2024 CBC W Auto Diffe renti al panel - Blood NRBC# NRBC# Not Available Not Availa ble 11/23/2024 10:23:07 12/17/19 24 04/07/2021 MAMMO , scree rut, digit al, bilat eral No observ ation record ed. [email or web address] Not Available 2023 16:11:18 12/17/19 24 12/31/2022 colon oscop y scree rut (PROC ) No observ ation record ed. [email or web address] Not Available 2023 11:26:57 12/17/19 24 04/18/2010 colon oscop y scree rut (PROC ) No observ ation record ed. [email or web address] Not Available 2023 11:27:36 06/04/20 24 06/04/2024 MRI, brain + inter nal audit ory canal , w/wo contr ast No observ ation record ed. [place] [id number], [place], [address], 06/12/2024 15:32:49 06/04/20 24 06/04/2024 MRI, brain + inter nal audit ory canal , w/wo contr ast No observ ation record ed. [address], [place], [address], 06/12/2024 15:32:49 07/29/20 24 07/29/2024 nerve condu ction study No observ ation record ed. [place] [id number] [facility] [address], [place], [address], 08/05/2024 14:32:07 Result Notes None recorded. Problems Name Problem SNOMED Code Status Onset Date Resolution Date Notes Provider Name and Address Organization Details Recorded Time Abdominal pain 15104977 Active 2023 Chitra Loza [place], [place] [facility] 4 16:08:20 Type 2 diabetes mellitus 15815696 Active 2023 Chitra Lo[place] [facility] 4 16:08:20 Essential hypertension 65071801 Active 2023 Chitra Lo[place] [facility] 4 16:08:21 Hyperlipidemia 21670728 Active 2023 Chitra [place] [facility] 4 16:08:21 Fatigue 84798161 Active 2023 Chitra Lo[place] [facility] 4 16:08:22 Anxiety 99770044 Active 2024 Edna Palomares MD Attn: [address]qu[address] [place], [address] [place] - [facility] 5 14:58:27 Problem Notes None recorded. Procedures Surgical History Date Name Laterality Status Provider Name and Address Organization Details Recorded Time Appendectomy completed Katlin Mancuso [place] [facility] 12/16/2023 14:58:17 section completed Katlin Mancuso [place] [facility] 12/16/2023 14:58:24 section completed Katlin Mancuso [place] [facility] 12/16/2023 14:58:30 Eye Surgery completed Katlin MancusoEILEEN [place] - [facility] 12/16/2023 14:58:34 Back Surgery completed Katlin ChaoEILEEN peraza [place] - [facility] 12/16/2023 14:58:39 Back Surgery completed Katlin MancusoEILEEN [facility] 12/16/2023 14:58:44 Knee Surgery completed Katlin MancusoEILEEN [facility] 12/16/2023 14:58:54 Imaging Results None recorded. Procedure Notes None recorded. Medical Equipment None Reported. Allergies No known drug allergies Medications Name Sig Start Date Stop Date Status Note LastModified by Organization Details LastModified Time atorvasta tin 40 mg tablet TAKE 1 TABLET BY MOUTH EVERY DAY 2023 active Not Available Not Available Not Avai lable metformin 500 mg tablet TAKE 2 TABLETS BY MOUTH IN THE MORNING AND TAKE 2 TABLETS AT NIGHT 2024 active Not Available Not Available Not Avai lable paroxetin e 10 mg tablet TAKE 1 TABLET BY MOUTH EVERY DAY 2024 active Not Available Not Available Not Avai lable atorvasta tin 20 mg tablet Take 1 tablet every day by oral route. 05/12 completed Changed to 40mg by Dr Palomares see lab results Not Available Not Available Not Available fluconazo le 150 mg tablet TAKE 1 TABLET BY MOUTH EVERY DAY 07/16 completed Not Available Not Available Not Available valacyclo vir 1 gram tablet TAKE 1 TABLET BY MOUTH EVERY 12 HOURS 07/16 completed Not Available Not Available Not Available meloxicam 15 mg tablet TAKE 1 TABLET BY MOUTH EVERY DAY 07/16 completed Not Available Not Available Not Available Accu-Chek Softclix Lancets Use to check glucose daily 2024 active Not Available Not Available Not Avai lable glimepiri de 1 mg tablet TAKE 1 TABLET BY MOUTH EVERY DAY 10/08 completed Not Available Not Available Not Available levothyro xine 100 mcg tablet TAKE 1 TABLET BY MOUTH EVERY DAY 2023 active Not Available Not Available Not Avai lable nitrofura ntoin monohydra te/macroc rystals 100 mg capsule TAKE 1 CAPSULE BY MOUTH TWICE A DAY FOR 5 DAYS 07/16 completed Not Available Not Available Not Available Accu-Chek Patricia Plus test strips Take 1 strip every day by miscell. route. 12/16/ 2024 active Not Available Not Available Not Avai lable Levemir FlexTouch U-100 Insulin 100 unit/mL (3 mL) subcutane ous pen Inject 15 units twice a day by subcutan eous route. 05/15 completed changed to Tresibia 25unit daily per Dr Palomares due to insuranc e. Not Available Not Available Not Available Tresiba FlexTouch U-100 insulin 100 unit/mL (3 mL) subcutane ous pen INJECT 25 UNITS EVERY DAY BY SUBCUTAN EOUS ROUTE. 2024 active Not Available Not Available Not Avai lable Basaglar KwikPen U-100 Insulin 100 unit/mL (3 mL) subcutane ous INJECT 25 UNITS EVERY DAY BY SUBCUTAN EOUS ROUTE active Not Available Not Available No t Available BD Shayna 2nd Gen Pen Needle 32 gauge x 5/32 USE TO INJECT TRESIBA DIRECTED 2024 active Not Available Not Available Not Avai lable pen needle, diabetic 31 gauge x 5/32 Use to inject Tresiba as directed 2023 active Not Available Not Available Not Avai lable Klayesta 100,000 unit/gram topical powder APPLY TO AFFECTED AREA TWICE A DAY 10/08 completed Not Available Not Available Not Available Vitals Date Recorded Body height Body mass index (BMI) Body weight Heart rate Oxygen saturation Oxygen saturation in Arterial blood by Pulse oximetry Systolic blood pressure Diastolic blood pressure Provider Name and Address Organization Details Last Updated DateTime 5 160.02 cm 31.2 kg/m2 16636.9 g 89 /min 97 % 97 % 110 mm[Hg] 80 mm[Hg] Maria Antonia Kline MA [facility] 5 11:24:25 Date Recorded Body height Body mass index (BMI) Body weight Heart rate Body temperature Oxygen saturation Oxygen saturation in Arterial blood by Pulse oximetry Systolic blood pressure Diastolic blood pressure Provider Name and Address Organization Details Last Updated DateTime 4 160.02 cm 30.1 kg/m2 85221.9 8 g 95 /min 97.8 [degF] 99 % 99 % 146 mm[Hg] 82 mm[Hg] Katlin Mancuso [place] [facility] 4 15:07:40 Date Recorded Body height Body mass index (BMI) Body weight Heart rate Oxygen saturation Oxygen saturation in Arterial blood by Pulse oximetry Systolic blood pressure Diastolic blood pressure Provider Name and Address Organization Details Last Updated DateTime 4 160.02 cm 28.9 kg/m2 01007.8 4 g 95 /min 96 % 96 % 126 mm[Hg] 70 mm[Hg] Quyen Stahl MA [facility] 4 11:06:56 Date Recorded Body height Body mass index (BMI) Body weight Heart rate Oxygen saturation Oxygen saturation in Arterial blood by Pulse oximetry Systolic blood pressure Diastolic blood pressure Provider Name and Address Organization Details Last Updated DateTime 4 160.02 cm 30.4 kg/m2 97277.7 3 g 91 /min 96 % 96 % 130 mm[Hg] 82 mm[Hg] Maria Antonia Kline MA [facility] 4 15:02:30 Social History Question Answer Notes LastModified by Organizat ion Details LastModified Time Tobacco Smoking Status Former Smoker Katlin Mancuso MA [facility] 12/16/2023 14:59:11 Do You Have An Advance Directive? No Information not available 07/16/2024 Are You Blind Or Do You Have Difficulty Seeing? No Information not available 12/16/2023 What Is Your Level Of Caffeine Consumption? Occasional Information not available 05/07/2024 In The 14 Days Before Symptom Onset, Have You Had Close Contact With A Laboratory-confir med COVID-19 While That Case Was Ill? No Information not available 07/16/2024 In The 14 Days Before Symptom Onset, Have You Had Close Contact With A Person Who Is Under Investigation For COVID-19 While That Person Was Ill? No Information not available 07/16/2024 Have You Been To An Area Known To Be High Risk For COVID-19? No Information not available 07/16/2024 Are You Deaf Or Do You Have Serious Difficulty Hearing? Yes Trouble Hearing Information not available 05/07/2024 What Type Of Diet Are You Following? REGULAR Information not available 05/07/2024 Are There Any Guns Present In Your Home? No Information not available 07/16/2024 What Was The Date Of Your Most Recent Tobacco Screening? 10/08/2024 Information not available 10/08/2024 What Is Your Current Pack Years? 20-29packyear s Information not available 05/07/2024 What Is Your Relationship Status? Information not available 12/16/2023 Do You Use Your Seat Belt Or Car Seat Routinely? Yes Information not available 12/16/2023 Do You Have Smoke And Carbon Monoxide Detectors In Your Home? Yes Information not available 05/07/2024 How Much Tobacco Do You Smoke? 1 PPD Information not available 05/07/2024 Do You Use Sunscreen Routinely? Yes Information not available 07/16/2024 Has Tobacco Cessation Counseling Been Provided? No Information not available 05/07/2024 How Many Years Have You Smoked Tobacco? 5 Information not available 12/16/2023 Sex: Female Functional Status Question Answer Note LastModified by Organizat ion Details LastModified Time Do you use any illicit or recreational drugs? No Information not available 05/07/2024 Do you or have you ever used any other forms of tobacco or nicotine? No Information not available 12/16/2023 What is your level of alcohol consumption? None Information not available 12/16/2023 Are you currently employed? No Information not available 05/07/2024 Are you able to care for yourself? Yes Information not available 12/16/2023 What is your exercise level? None Information not available 05/07/2024 Mental Status Question Answer Note LastModified by Organization D etails LastModified Time Do you feel stressed (tense, restless, nervous, or anxious, or unable to sleep at night)? [id number] Information not available 12/16/2023 Family History Relationship Description Onset Age of this Age Resolved Age Notes LastModified by Organization Details LastModified Time Father Harmful pattern of use of alcohol [email or web address] Not available 2023 15:00:39 Father Cerebrovascu lar accident [email or web address] Not available 09/2023 15:01:24 Mother Dementia [email or web address] Not availabl e 12/16/2023 15:00:55 Mother Depressive disorder [email or web address] Not available 2023 15:00:59 Mother Disorder of thyroid gland [email or web address] Not available 2023 15:01:08 Brother Dementia [email or web address] Not availab le 12/16/2023 15:01:58 Brother Parkinson's disease [email or web address] Not available 2023 15:02:09 Medical History Condition Response Coronary Artery Disease N Other N High Blood Pressure Y Atrial Fibrillation N Kidney or Bladder Problems N Thyroid Problems Y GI Problems Y Depression N COPD N Blood Clots N Have you had a mammogram in the last yea r? N Skin Problems N Anemia N Heart Attack ([place]) N Anxiety Disorder N Diabetes Y Muscle, Joint, or Bone Problems N Seizures/Epilepsy N Have you had a colonoscopy in the last 1 0 years? Y Acid Reflux (GERD) N Cancer N Stroke N Asthma N Allergies N Have you had a PSA blood test in the las t year? N High Cholesterol Y Hepatitis N Liver Disease N Headaches N Heart Failure N Osteoporosis N Gynecological HistoryNo gynecological history recorded. Obstetrics History GPAL:G 0 P 0 0 0 0 Immunizations Vaccine Type Date Status Note Provider Nam e and Address Organization Details Recorded Time Influenza, split virus, quadrivalent, preservative 6 completed Shara Bond [place], [place] [facility] 12/26/2023 11:28:40 Influenza, high-dose, quadrivalent, PF 0 completed [place] [facility] 12/26/2023 11:28:40 Influenza, high-dose, quadrivalent, PF 2 completed [place] [facility] 12/26/2023 11:28:40 COVID-19, mRNA, LNP-S, PF, 30 mcg/0.3 mL dose 1 completed [place] [facility] 12/26/2023 11:28:40 COVID-19, mRNA, LNP-S, PF, 30 mcg/0.3 mL dose 1 completed [place] [facility] 12/26/2023 11:28:40 COVID-19, mRNA, LNP-S, PF, 30 mcg/0.3 mL dose 1 completed Shara [place] [facility] 12/26/2023 11:28:40 COVID-19, mRNA, LNP-S, PF, 30 mcg/0.3 mL dose 1 completed Sh[place] [facility] 12/26/2023 11:28:40 influenza, unspecified formulation 8 completed [place] [facility] 12/26/2023 11:28:40 Influenza, high-dose, trivalent, PF 9 completed [place] [facility] 12/26/2023 11:28:40 Influenza, split virus, trivalent, preservative 7 completed Sh[place] [facility] 12/26/2023 11:28:40 Influenza, split virus, trivalent, preservative 2 completed [place] [facility] 12/26/2023 11:28:40 Influenza, split virus, trivalent, PF 6 completed Sh[place] [facility] 12/26/2023 11:28:40 Past Encounters Encounter ID Performer Location Encounter Start Date Encounter Closed Date Diagnosis/Indication Diagnosis SNOMED-CT Code Diagnosis ICD10 Code Diagnosis Note [id number] Edna Palomares MD [facility] [employer] [facility] [place] [address] [place] [address] 12/16/2023 14:41:04 12/16/2023 16:15:31 Abdominal pain 25213789 R10.9 Type 2 dominick betes mellitus 56553483 E11.9 Essential hypertension 34020623 I10 Hyperlipidemia 01918231 E78.5 Fatigue 55668696 R53.83 [id number] Edna Palomares MD [facility] [employer] [facility] [place] [address] [place] [address] 05/07/2024 10:39:30 05/07/2024 12:01:56 Overweight 788778955 E66.3 Hyperlipidemia 86296256 E78.5 Essential hypertension 75970091 I10 Type 2 dominick betes mellitus 53457674 E11.9 Paresthesia 67189410 R20 .2 Vertigo 011946411 R42 [id number] Edna Palomares MD [facility] [employer] [facility] [place] [address] [place] [address] 07/16/2024 14:46:34 07/16/2024 16:08:31 Body mass index 30+ - obesity 087271120 Z68.30 Obesity 182350351 E66.9 Essential hypertension 83097162 I10 Type 2 dominick betes mellitus 38249648 E11.9 Hyperlipidemia 59433221 E78.5 Steatotic liver disease 235374998 K76.0 Cholelithi asis without obstruction 81135356 K80.20 [id number] Edna Palomares MD [facility] [employer] [facility] [place] [address] [place] [address] 10/08/2024 11:15:38 10/08/2024 12:07:19 Body mass index 30+ - obesity 513536392 Z68.30 Obesity 562773811 E66.9 Essential hypertension 73070989 I10 Hyperlipidemia 92472980 E78.5 Type 2 dominick betes mellitus 19518163 E11.9 Screening mammography 24 203328 Z12.31 Anxiety 45411058 F41.9 Health Concerns Section Related Observation LastModified by Organization Detai ls LastModified Time None Recorded Concern Status LastModified by Organization Details LastModified Time None Recorded Advance Directives Directive N: Payers Encounter Date Sequence Insurance Name Policy Number Policy Garcia Covered Member ID Garcia Member ID Guarantor Name 12/16/2023 1 [place] Latoya Galvan [id number] Nancy Cole 12/16/2023 2 [employer] (MEDICARE SUPPLEMENT) Nancy Galvan [id number] Nancy Cole 05/07/2024 1 [place] Latoya Galvan [id number] Nancy Cole 05/07/2024 2 [employer] (MEDICARE SUPPLEMENT) Nancy Galavn [id number] Nancy Cole 07/16/2024 1 [place] Latoya Galvan [id number] Nancy Galvan 07/16/2024 2 [employer] (MEDICARE SUPPLEMENT) Nancy Galvan [id number] Nancy Galvan 10/08/2024 1 [place] Latoya Galvan [id number] Nancy Galvan 10/08/2024 2 [employer] (MEDICARE SUPPLEMENT) Nancy Galvan [id number] Nancy Galvan Notes Date Note Type Note Provider Name and Address Organization Details Recorded Time 12/16/2023 text/html She had some vag ue abdominal pain that was kind of diffuse but it got better she has been really stressed about her with severe dementia placed in a facility and she is lost about 15 or 20 pounds she is felt tired dyslipidemia diet has been liberalized and she has just been trying to eat which she can hypertension no headache or dizziness diabetes not checking sugars. Hypothyroid she does take her levothyroxine Edna Palomares MD Attn: [address] [place], [address], [facility] 12/16/2023 21:50:14 05/07/2024 text/html diabetes stress has dementia and probably in the life cares really been bothering her. She would have some paresthesias in the legs bilaterally occasionally she will experience little bit of vertigo when she lays down or rolls over in bed. Overweight needs help losing some weight dyslipidemia diet is poor because of 's medical status. Hypertension no chest pain no headache Edna Palomares MD Attn: [address] [place], [address], [facility] 05/16/2024 20:08:44 07/16/2024 text/html diabetes sugars are coming down she is below 200 no polyphagia or polydipsia has gained a little bit of weight. Her A1c was 12. She is tolerating her statin hypothyroid no heat or cold intolerance obesity needs help losing weight Edna Palomares MD Attn: [address] [place], [address], [facility] 07/16/2024 21:47:57 10/08/2024 text/html diabetes. She do es not need some blood work no polyphagia polydipsia or hypoglycemia . Overweight needs help losing some weight dyslipidemia concentrating more on her health since has been passed. Hypertension no chest pain no headache anxiety stable Edna Palomares MD Attn: [employer] [facility], [place], [address], [facility] 10/25/2024 14:58:57 OBGyn Episode No OBEpisode recorded.
--- OUTSIDE RECORDS SUMMARY | 2025-02-16 08:34 | XMS_ITS | Data Portability ---
Author Organization [place] [facility], Main Office Address [address] [place] [address] Care Team Providers Care Utilization Specialist Name Role Phone EDNA PALOMARES Primary Care Provider EDNA PALOMARES Referring Provider [phone] Assessment Encounter Date Assessment Date Assessment LastModified by Organization Details LastModified Time 12/04/2022 12/04/2022 Blood work has been ordered as well as urinalysis ultrasound left kidney colonoscopy follow-up in 4 months dx in A?P discussed [email or web address] Not available 12/04/2022 22:28:40 04/25/2023 04/25/2023 Will continue with current therapy evaluate her medical problems with blood work see me back in 4 months target for blood pressure blood lipid and A1c discussed Not available 07/14/2023 18:05:59 Plan of Treatment Reminders Order Date Submit Date Provider Last Modified By Organization Details Last Modified Time Details Appointments None recorded. Lab CBC w/ auto diff 2022 023 CORNELIUS Not available 3 18:13:04 HbA1c (hemoglobin A1c), blood 2022 023 [email or web address] Not available 4 11:13:52 CMP, serum or plasma 2022 023 CORNELIUS Not available 3 19:16:18 lipid panel, serum 2022 023 CORNELIUS Not available 3 19:16:22 urinalysis, microscopic 2022 023 cyahl Not available 3 10:06:43 HbA1c (hemoglobin A1c), blood 2022 023 cyahl Not available 3 10:06:36 CMP, serum or plasma 2022 023 CORNELIUS Not available 3 21:22:04 lipid panel, serum 2022 023 CORNELIUS Not available 3 21:22:09 TSH, serum or plasma 2022 023 CORNELIUS Not available 3 21:47:52 T3, free, serum or plasma 2022 023 CORNELIUS Not available 3 21:35:39 T4, free, serum 2022 023 CORNELIUS Not available 3 21:35:19 Referral None recorded. Procedures colonoscopy screening (PROC) 2022 023 CORNELIUS Tomy Wolff MD, [address], [place] [address], [address], 3 13:59:18 Surgeries None recorded. Imaging None recorded. Medication Orders Seroquel 25 mg tablet 2022 023 cyahl [id number], [address] [place], [address], 3 10:39:07 Patient TargetsNo targets recorded. Patient InstructionsNo instructions recorded. Reason for Referral None Reported. Results Created Date Observation Date Name Description Value Unit Range Abnormal Flag Note LastModifiedBy Organization Detail LastModifiedTime 03/29/20 22 03/29/2022 HEMOG LOBIN A1C HA1C 11.9 % 4.0-6. 0 high Diabe eugene Scree rut Crite liza: <5.7% Consi stent with absen ce of diabe eugene 5.7-6 .4% Consi stent with incre ased risk for diabe eugene (pred iabet es) >OR=6 .5% Consi stent with diabe eugene REFER ENCE: Diabe eugene Care 2016, 39(Stacy ppl.1 ):s13 -s22 Not Available [facility] (Lab) [address] [place], [address], 03/29/2022 20:06:21 03/29/20 22 03/29/2022 LIPID PANEL cholesterol 194 mg/dL 140-19 9 NIH JESUS NSUS RECOM MENDA TION FOR DALIA STERO L: ADULT CHILD LOW RISK: <200 <170 BORDE RLINE : <200- 239 ----- HIGH RISK: >240 >200 Not Available [facility] (Lab) [address] [place], [address], 03/29/2022 19:03:20 03/29/20 22 03/29/2022 LIPID PANEL triglyceride s 385 mg/dL 0-150 high NIH JESUS NSUS REPOR T RECOM MENDA TION FOR TRIGL YCERI XIOMARA: ADULT CHILD LOW RISK: <150 ----- BODER LINE: 150-1 99 ----- HIGH RISK: >200 ----- Not Available [facility] (Lab) [address] [place], [address], 03/29/2022 19:03:20 03/29/20 22 03/29/2022 LIPID PANEL HDL cholesterol 59 mg/dL 40- Not Available [facility] (Lab) [address] [place], [address], 03/29/2022 19:03:20 03/29/20 22 03/29/2022 LIPID PANEL LDL cholesterol, calculated 58 mg/dL 0-130 NIH JESUS NSUS REPOR T RECOM MENDA TIONS FOR LDL: ADULT CHILD LOW RISK <130 <110 (OPTI MAL LDL) <100 ----- BORDE RLINE : 130-1 59 ----- HIGH RISK: >160 >130 A TRIGL YCERI DE RESUL T >400 INVAL IDATE S THE CALCU LATIO N FOR LDL FRACT IONAT ION - THE LDL RESUL T WILL NOT BE REPOR ADAM. Not Available [facility] (Lab) [address] [place], [address], 03/29/2022 19:03:20 03/29/20 22 03/29/2022 COMPR EHENS JOSE FRANCISCO METAB OLIC PANEL sodium 134 mmol/ L 137-14 5 low Not Available [facility] (Lab) [address] [place], [address], 03/29/2022 19:03:18 03/29/20 22 03/29/2022 COMPR EHENS JOSE FRANCISCO METAB OLIC PANEL potassium 4.5 mmol/ L 3.5-5. 1 Not Available [facility] (Lab) [address] [place], [address], 03/29/2022 19:03:18 03/29/20 22 03/29/2022 COMPR EHENS JOSE FRANCISCO METAB OLIC PANEL chloride 100 mmol/ L 98-107 Not Available [facility] (Lab) [address] [place], [address], 03/29/2022 19:03:18 03/29/20 22 03/29/2022 COMPR EHENS JOSE FRANCISCO METAB OLIC PANEL carbon dioxide 23 mmol/ L 22-30 Not Available [facility] (Lab) [address] [place], [address], 03/29/2022 19:03:18 03/29/20 22 03/29/2022 COMPR EHENS JOSE FRANCISCO METAB OLIC PANEL anion gap 15.5 mmol/ L 14-22 Not Available [facility] (Lab) [address] [place], [address], 03/29/2022 19:03:18 03/29/20 22 03/29/2022 COMPR EHENS JOSE FRANCISCO METAB OLIC PANEL glucose 303 mg/dL 70-99 high Not Available [facility] (Lab) [address] [place], [address], 03/29/2022 19:03:18 03/29/20 22 03/29/2022 COMPR EHENS JOSE FRANCISCO METAB OLIC PANEL BUN 13 mg/dL 8-19 Not Available [facility] (Lab) [address] [place], [address], 03/29/2022 19:03:18 03/29/2003/29/2022 COMPR EHENS JOSE FRANCISCO METAB OLIC PANEL creatinine 0.71 mg/dL 0.66-1 .25 Not Available [facility] (Lab) [address] [place], [address], 03/29/2022 19:03:18 03/29/20 22 03/29/2022 COMPR EHENS JOSE FRANCISCO METAB OLIC PANEL GFR >60 Refer ence Range : [place] GFR Healt hy Adult : >60 mL/mi n/1.7 3 m2 Chron ic Kidne y Disea se: 15-60 mL/mi n/1.7 3 m2 Kidne y Failu re: <15/m L/min /1.73 m2 www.n iddk. nih.g ov The MDRD study equat ion has not been valid ated in child mera <18 years of age; pregn ant women ; the elder ly >85 years of age; or in some racia l or ethni c subgr oups, such as [place] nics. Outsi de the valid ated bill eters , estim ated GFR is less accur ate, requi ring clini cesar judgm ent on a case- by-ca se basis . Clini cesar inter preta tion for other races and ages must be made by the clini nikhil. The MDRD study equat ion has not been valid ated for the evalu ation of serum creat inine relat ed to nutri diana l statu s or medic ation usage . For perso ns <18 years of age, a pedia tric GFR calcu lator is avail able on the F websi te: https ://guanako li.santosh moon.o stephon/pr alessandraess ional s/kdo qi/gf r_cal culat or Not Available [facility] (Lab) [address] [place], [address], 03/29/2022 19:03:18 03/29/20 22 03/29/2022 COMPR EHENS JOSE FRANCISCO METAB OLIC PANEL alkaline phosphatase 128 U/L 38-126 high Not Available [facility] (Lab) [address] [place], [address], 03/29/2022 19:03:18 03/29/20 22 03/29/2022 COMPR EHENS JOSE FRANCISCO METAB OLIC PANEL alanine aminotransfe rase 52 U/L 0-35 high Not Available [facility] (Lab) [address] [place], [address], 03/29/2022 19:03:18 03/29/20 22 03/29/2022 COMPR EHENS JOSE FRANCISCO METAB OLIC PANEL aspartate aminotransfe rase 54 U/L 15-37 high Not Available [facility] (Lab) [address] [place], [address], 03/29/2022 19:03:18 03/29/20 22 03/29/2022 COMPR EHENS JOSE FRANCISCO METAB OLIC PANEL bilirubin, total 0.80 mg/dL 0.20-1 .30 Not Available [facility] (Lab) [address] [place], [address], 03/29/2022 19:03:18 03/29/20 22 03/29/2022 COMPR EHENS JOSE FRANCISCO METAB OLIC PANEL calcium 9.8 mg/dL 8.4-10 .2 Not Available [facility] (Lab) [address] [place], [address], 03/29/2022 19:03:18 03/29/20 22 03/29/2022 COMPR EHENS JOSE FRANCISCO METAB OLIC PANEL total protein 7.4 g/dL 6.3-8. 2 Not Available [facility] (Lab) [address] [place], [address], 03/29/2022 19:03:18 03/29/20 22 03/29/2022 COMPR EHENS JOSE FRANCISCO METAB OLIC PANEL albumin 4.5 g/dL 3.0-4. 4 high Not Available [facility] (Lab) [address] [place], [address], 03/29/2022 19:03:18 03/29/20 22 03/29/2022 COMPR EHENS JOSE FRANCISCO METAB OLIC PANEL globulin 2.9 g/dL 2.6-4. 2 Not Available [facility] (Lab) [address] [place], [address], 03/29/2022 19:03:18 03/29/20 22 03/29/2022 COMPR EHENS JOSE FRANCISCO METAB OLIC PANEL A/G ratio 1.6 ratio 1.0-2. 0 Not Available [facility] (Lab) [address] [place], [address], 03/29/2022 19:03:18 07/31/20 22 08/03/2022 TSH thyroid-stim ulating hormone 6.330 uIU/m L 0.465- 4.680 high Not Available [facility] (Lab) [address] [place], [address], 08/03/2022 17:35:59 07/31/20 22 08/03/2022 T4 FREE free T4 1.45 NG/dL 0.78-2 .19 Not Available [facility] (Lab) [address] [place], [address], 08/03/2022 17:10:58 07/31/20 22 08/03/2022 T3 FREE free T3 2.4 pg/mL 2.77-5 .27 low Not Available [facility] (Lab) [address] [place], [address], 08/03/2022 17:10:56 07/31/20 22 07/31/2022 HEMOG LOBIN A1C HA1C 10.7 % 4.0-6. 0 high Diabe eugene Scree rut Crite liza: <5.7% Consi stent with absen ce of diabe eugene 5.7-6 .4% Consi stent with incre ased risk for diabe eugene (pred iabet es) >OR=6 .5% Consi stent with diabe eugene REFER ENCE: Diabe eugene Care 2016, 39(Stacy ppl.1 ):s13 -s22 Not Available [facility] (Lab) [address] [place] [address], [address], 07/31/2022 22:07:56 07/31/20 22 07/31/2022 LIPID PANEL cholesterol 173 mg/dL 140-19 9 NIH JESUS NSUS RECOM MENDA TION FOR DALIA STERO L: ADULT CHILD LOW RISK: <200 <170 BORDE RLINE : <200- 239 ----- HIGH RISK: >240 >200 Not Available [facility] (Lab) [address] [place], [address], 07/31/2022 19:13:50 07/31/20 22 07/31/2022 LIPID PANEL triglyceride s 286 mg/dL 0-150 high NIH JESUS NSUS REPOR T RECOM MENDA TION FOR TRIGL YCERI XIOMARA: ADULT CHILD LOW RISK: <150 ----- BODER LINE: 150-1 99 ----- HIGH RISK: >200 ----- Not Available [facility] (Lab) [address] [place], [address], 07/31/2022 19:13:50 07/31/20 22 07/31/2022 LIPID PANEL HDL cholesterol 61 mg/dL 40- Not Available [facility] (Lab) [address] [place] [address], [address], 07/31/2022 19:13:50 07/31/20 22 07/31/2022 LIPID PANEL LDL cholesterol, calculated 55 mg/dL 0-130 NIH JESUS NSUS REPOR T RECOM MENDA TIONS FOR LDL: ADULT CHILD LOW RISK <130 <110 (OPTI MAL LDL) <100 ----- BORDE RLINE : 130-1 59 ----- HIGH RISK: >160 >130 A TRIGL YCERI DE RESUL T >400 INVAL IDATE S THE CALCU LATIO N FOR LDL FRACT IONAT ION - THE LDL RESUL T WILL NOT BE REPOR ADAM. Not Available [facility] (Lab) [address] [place], [address], 07/31/2022 19:13:50 07/31/20 22 07/31/2022 COMPR EHENS JOSE FRANCISCO METAB OLIC PANEL sodium 136 mmol/ L 137-14 5 low Not Available [facility] (Lab) [address] [place], [address], 07/31/2022 19:13:41 07/31/20 22 07/31/2022 COMPR EHENS JOSE FRANCISCO METAB OLIC PANEL potassium 4.7 mmol/ L 3.5-5. 1 Not Available [facility] (Lab) [address] [place], [address], 07/31/2022 19:13:41 07/31/20 22 07/31/2022 COMPR EHENS JOSE FRANCISCO METAB OLIC PANEL chloride 100 mmol/ L 98-107 Not Available [facility] (Lab) [address] [place], [address], 07/31/2022 19:13:41 07/31/20 22 07/31/2022 COMPR EHENS JOSE FRANCISCO METAB OLIC PANEL carbon dioxide 26 mmol/ L 22-30 Not Available [facility] (Lab) [address] [place], [address], 07/31/2022 19:13:41 07/31/20 22 07/31/2022 COMPR EHENS JOSE FRANCISCO METAB OLIC PANEL anion gap 14.7 mmol/ L 14-22 Not Available [facility] (Lab) [address] [place], [address], 07/31/2022 19:13:41 07/31/20 22 07/31/2022 COMPR EHENS JOSE FRANCISCO METAB OLIC PANEL glucose 246 mg/dL 70-99 high Not Available [facility] (Lab) [address] [place], [address], 07/31/2022 19:13:41 07/31/20 22 07/31/2022 COMPR EHENS JOSE FRANCISCO METAB OLIC PANEL BUN 14 mg/dL 8-19 Not Available [facility] (Lab) [address] [place], [address], 07/31/2022 19:13:41 07/31/20 22 07/31/2022 COMPR EHENS JOSE FRANCISCO METAB OLIC PANEL creatinine 0.70 mg/dL 0.66-1 .25 Not Available [facility] (Lab) [address], [place], [address], 07/31/2022 19:13:41 07/31/20 22 07/31/2022 COMPR EHENS JOSE FRANCISCO METAB OLIC PANEL GFR >60 Refer ence Range : [place] ge GFR Healt hy Adult : >60 mL/mi n/1.7 3 m2 Chron ic Kidne y Disea se: 15-60 mL/mi n/1.7 3 m2 Kidne y Failu re: <15/m L/min /1.73 m2 www.n iddk. nih.g ov The MDRD study equat ion has not been valid ated in child mera <18 years of age; pregn ant women ; the elder ly >85 years of age; or in some racia l or ethni c subgr oups, such as [facility] nics. Outsi de the valid ated bill eters , estim ated GFR is less accur ate, requi ring clini cesar judgm ent on a case- by-ca se basis . Clini cesar inter preta tion for other races and ages must be made by the clini nikhil. The MDRD study equat ion has not been valid ated for the evalu ation of serum creat inine relat ed to nutri diana l statu s or medic ation usage . For perso ns <18 years of age, a pedia tric GFR calcu lator is avail able on the F websi te: https ://guanako w.santosh mezay.o rg/pr ofess ional s/kdo qi/gf r_cal culat or Not Available [facility] (Lab) [address] [place], [address], 07/31/2022 19:13:41 07/31/20 22 07/31/2022 COMPR EHENS JOSE FRANCISCO METAB OLIC PANEL alkaline phosphatase 133 U/L 38-126 high Not Available [facility] (Lab) [address] [place], [address], 07/31/2022 19:13:41 07/31/20 22 07/31/2022 COMPR EHENS JOSE FRANCISCO METAB OLIC PANEL alanine aminotransfe rase 45 U/L 0-35 high Not Available [facility] (Lab) [address] [place], [address], 07/31/2022 19:13:41 07/31/20 22 07/31/2022 COMPR EHENS JOSE FRANCISCO METAB OLIC PANEL aspartate aminotransfe rase 59 U/L 15-37 high Not Available [facility] (Lab) [address] [place], [address], 07/31/2022 19:13:41 07/31/20 22 07/31/2022 COMPR EHENS JOSE FRANCISCO METAB OLIC PANEL bilirubin, total 0.80 mg/dL 0.20-1 .30 Not Available [facility] (Lab) [address] [place], [address], 07/31/2022 19:13:41 07/31/20 22 07/31/2022 COMPR EHENS JOSE FRANCISCO METAB OLIC PANEL calcium 10.6 mg/dL 8.4-10 .2 high Not Available [facility] (Lab) [address] [place], [address], 07/31/2022 19:13:41 07/31/20 22 07/31/2022 COMPR EHENS JOSE FRANCISCO METAB OLIC PANEL total protein 7.5 g/dL 6.3-8. 2 Not Available [facility] (Lab) [address] [place], [address], 07/31/2022 19:13:41 07/31/20 22 07/31/2022 COMPR EHENS JOSE FRANCISCO METAB OLIC PANEL albumin 4.6 g/dL 3.0-4. 4 high Not Available [facility] (Lab) [address] [place], [address], 07/31/2022 19:13:41 07/31/20 22 07/31/2022 COMPR EHENS JOSE FRANCISCO METAB OLIC PANEL globulin 2.9 g/dL 2.6-4. 2 Not Available [facility] (Lab) [address] [place], [address], 07/31/2022 19:13:41 07/31/20 22 07/31/2022 COMPR EHENS JOSE FRANCISCO METAB OLIC PANEL A/G ratio 1.6 ratio 1.0-2. 0 Not Available [facility] (Lab) [address] [place], [address], 07/31/2022 19:13:41 12/05/19 23 12/04/2022 URINE MICRO SCOPI C EXAM/ IRIS white blood cells 0-8 /i??h pfi?? 0-8 Not Available [facility] (Lab) [address] [place], [address], 12/04/2022 18:55:17 12/05/19 23 12/04/2022 URINE MICRO SCOPI C EXAM/ IRIS red blood cells NONE /i??h pfi?? 0-4 Not Available [facility] (Lab) [address] [place], [address], 12/04/2022 18:55:17 12/05/19 23 12/04/2022 URINE MICRO SCOPI C EXAM/ IRIS bacteria FEW abnormal Not Available [facility] (Lab) [address] [place], [address], 12/04/2022 18:55:17 12/05/19 23 12/04/2022 URINE MICRO SCOPI C EXAM/ IRIS mucous FEW /i??l pfi?? abnormal Not Available [facility] (Lab) [address] [place], [address], 12/04/2022 18:55:17 12/05/19 23 12/04/2022 URINE MICRO SCOPI C EXAM/ IRIS squamous epithelial FEW /i??l pfi?? abnormal Not Available [facility] (Lab) [address] [place], [address], 12/04/2022 18:55:17 12/05/19 23 12/04/2022 URINE MICRO SCOPI C EXAM/ IRIS white blood cells 0-8 /i??h pfi?? 0-8 Not Available [facility] (Lab) [address] [place], [address], 12/04/2022 18:55:19 12/05/19 23 12/04/2022 URINE MICRO SCOPI C EXAM/ IRIS red blood cells NONE /i??h pfi?? 0-4 Not Available [facility] (Lab) [address] [place], [address], 12/04/2022 18:55:19 12/05/19 23 12/04/2022 URINE MICRO SCOPI C EXAM/ IRIS bacteria FEW abnormal Not Available [facility] (Lab) [address] [place], [address], 12/04/2022 18:55:19 12/05/19 23 12/04/2022 URINE MICRO SCOPI C EXAM/ IRIS mucous FEW /i??l pfi?? abnormal Not Available [facility] (Lab) [address] [place], [address], 12/04/2022 18:55:19 12/05/19 23 12/04/2022 URINE MICRO SCOPI C EXAM/ IRIS squamous epithelial FEW /i??l pfi?? abnormal Not Available [facility] (Lab) [address] [place], [address], 12/04/2022 18:55:19 12/05/19 23 12/04/2022 COMPR EHENS JOSE FRANCISCO METAB OLIC PANEL sodium 138 mmol/ L 137-14 5 Not Available [facility] (Lab) [address] [facility] [place], [address], 12/04/2022 21:22:04 12/05/19 23 12/04/2022 COMPR EHENS JOSE FRANCISCO METAB OLIC PANEL potassium 4.2 mmol/ L 3.5-5. 1 Not Available [facility] (Lab) [address] [place], [address], 12/04/2022 21:22:04 12/05/19 23 12/04/2022 COMPR EHENS JOSE FRANCISCO METAB OLIC PANEL chloride 101 mmol/ L 98-107 Not Available [facility] (Lab) [address] [place], [address], 12/04/2022 21:22:04 12/05/19 23 12/04/2022 COMPR EHENS JOSE FRANCISCO METAB OLIC PANEL carbon dioxide 28 mmol/ L 22-30 Not Available [facility] (Lab) [address] [place], [address], 12/04/2022 21:22:04 12/05/19 23 12/04/2022 COMPR EHENS JOSE FRANCISCO METAB OLIC PANEL anion gap 13.2 mmol/ L 14-22 low Not Available [facility] (Lab) [address] [place], [address], 12/04/2022 21:22:04 12/05/19 23 12/04/2022 COMPR EHENS JOSE FRANCISCO METAB OLIC PANEL glucose 117 mg/dL 70-99 high Not Available [facility] (Lab) [address] [place], [address], 12/04/2022 21:22:04 03/21/20 23 12/04/2022 COMPR EHENS JOSE FRANCISCO METAB OLIC PANEL BUN 17 mg/dL 8-19 Not Available [facility] (Lab) [address] [place], [address], 12/04/2022 21:22:04 12/05/19 23 12/04/2022 COMPR EHENS JOSE FRANCISCO METAB OLIC PANEL creatinine 0.73 mg/dL 0.66-1 .25 Not Available [facility] (Lab) [address] [place], [address], 12/04/2022 21:22:04 12/05/19 23 12/04/2022 COMPR EHENS JOSE FRANCISCO METAB OLIC PANEL GFR >60 Refer ence Range : [place] GFR Healt hy Adult : >60 mL/mi n/1.7 3 m2 Chron ic Kidne y Disea se: 15-60 mL/mi n/1.7 3 m2 Kidne y Failu re: <15/m L/min /1.73 m2 www.n iddk. nih.g ov The MDRD study equat ion has not been valid ated in child mera <18 years of age; pregn ant women ; the elder ly >85 years of age; or in some racia l or ethni c subgr oups, such as [place] nics. Outsi de the valid ated bill eters , estim ated GFR is less accur ate, requi ring clini cesar judgm ent on a case- by-ca se basis . Clini cesar inter preta tion for other races and ages must be made by the clini nikhil. The MDRD study equat ion has not been valid ated for the evalu ation of serum creat inine relat ed to nutri diana l statu s or medic ation usage . For perso ns <18 years of age, a pedia tric GFR calcu lator is avail able on the [facility] websi te: https ://guanako li.santosh moon.o rg/pr ofess ional s/kdo qi/gf r_cal culat or Not Available [facility] (Lab) [address] [place], [address], 12/04/2022 21:22:04 12/05/19 23 12/04/2022 COMPR EHENS JOSE FRANCISCO METAB OLIC PANEL alkaline phosphatase 121 U/L 38-126 Not Available [facility] (Lab) [address] [place], [address], 12/04/2022 21:22:04 12/05/19 23 12/04/2022 COMPR EHENS JOSE FRANCISCO METAB OLIC PANEL alanine aminotransfe rase 58 U/L 0-35 high Not Available [facility] (Lab) [address] [place], [address], 12/04/2022 21:22:04 12/05/19 23 12/04/2022 COMPR EHENS JOSE FRANCISCO METAB OLIC PANEL aspartate aminotransfe rase 66 U/L 15-37 high Not Available [facility] (Lab) [address] [place], [address], 12/04/2022 21:22:04 12/05/19 23 12/04/2022 COMPR EHENS JOSE FRANCISCO METAB OLIC PANEL bilirubin, total 0.50 mg/dL 0.20-1 .30 Not Available [facility] (Lab) [address] [place], [address], 12/04/2022 21:22:04 12/05/19 23 12/04/2022 COMPR EHENS JOSE FRANCISCO METAB OLIC PANEL calcium 10.1 mg/dL 8.4-10 .2 Not Available [facility] (Lab) [address] [place], [address], 12/04/2022 21:22:04 12/05/19 23 12/04/2022 COMPR EHENS JOSE FRANCISCO METAB OLIC PANEL total protein 7.7 g/dL 6.3-8. 2 Not Available [facility] (Lab) [address] [facility] [place], [address], 12/04/2022 21:22:04 12/05/19 23 12/04/2022 COMPR EHENS JOSE FRANCISCO METAB OLIC PANEL albumin 4.7 g/dL 3.0-4. 4 high Not Available [facility] (Lab) [address] [place], [address], 12/04/2022 21:22:04 12/05/19 23 12/04/2022 COMPR EHENS JOSE FRANCISCO METAB OLIC PANEL globulin 3.0 g/dL 2.6-4. 2 Not Available [facility] (Lab) [address] [place], [address], 12/04/2022 21:22:04 12/05/19 23 12/04/2022 COMPR EHENS JOSE FRANCISCO METAB OLIC PANEL A/G ratio 1.6 ratio 1.0-2. 0 Not Available [facility] (Lab) [address] [place], [address], 12/04/2022 21:22:04 12/05/19 23 12/04/2022 LIPID PANEL cholesterol 167 mg/dL 140-19 9 NIH JESUS NSUS RECOM MENDA TION FOR DALIA STERO L: ADULT CHILD LOW RISK: <200 <170 BORDE RLINE : <200- 239 ----- HIGH RISK: >240 >200 Not Available [facility] (Lab) [address] [place], [address], 12/04/2022 21:22:09 12/05/19 23 12/04/2022 LIPID PANEL triglyceride s 256 mg/dL 0-150 high NIH JESUS NSUS REPOR T RECOM MENDA TION FOR TRIGL YCERI XIOMARA: ADULT CHILD LOW RISK: <150 ----- BODER LINE: 150-1 99 ----- HIGH RISK: >200 ----- Not Available [facility] (Lab) [address] [place], [address], 12/04/2022 21:22:09 12/05/19 23 12/04/2022 LIPID PANEL HDL cholesterol 71 mg/dL 40- Not Available [facility] (Lab) [address] [place], [address], 12/04/2022 21:22:09 12/05/1912/04/2022 LIPID PANEL LDL cholesterol, calculated 45 mg/dL 0-130 [facility] JESUS NSUS REPOR T RECOM MENDA TIONS FOR LDL: ADULT CHILD LOW RISK <130 <110 (OPTI MAL LDL) <100 ----- BORDE RLINE : 130-1 59 ----- HIGH RISK: >160 >130 A TRIGL YCERI DE RESUL T >400 INVAL IDATE S THE CALCU LATIO N FOR LDL FRACT IONAT ION - THE LDL RESUL T WILL NOT BE REPOR ADAM. Not Available [facility] (Lab) [address] [place], [address], 12/04/2022 21:22:09 12/05/19 23 12/04/2022 T4 FREE free T4 1.55 NG/dL 0.78-2 .19 Not Available [facility] (Lab) [address] [place], [address], 12/04/2022 21:35:19 12/05/1912/04/2022 T3 FREE free T3 3.2 pg/mL 2.77-5 .27 Not Available [facility] (Lab) [address] [place], [address], 12/04/2022 21:35:39 12/05/1912/04/2022 TSH thyroid-stim ulating hormone 3.880 uIU/m L 0.465- 4.680 Not Available [facility] (Lab) [address] [place], [address], 12/04/2022 21:47:51 12/05/1912/04/2022 HEMOG LOBIN A1C HA1C 9.2 % 4.0-6. 0 high Diabe eugene Scree rut Crite liza: <5.7% Consi stent with absen ce of diabe eugene 5.7-6 .4% Consi stent with incre ased risk for diabe eugene (pred iabet es) >OR=6 .5% Consi stent with diabe eugene REFER ENCE: Diabe eugene Care 2015, 39(Stacy ppl.1 ):s13 -s22 Not Available [facility] (Lab) [address] [place], [address], 12/04/2022 22:47:24 04/25/20 23 04/25/2023 CBC/C OMPLE TE BLD COUNT W/DIF F white blood cells 6.4 x10'3 /uL 4.2-10 .8 Not Available [facility] (Lab) [address] [place], [address], 04/25/2023 18:13:04 04/25/20 23 04/25/2023 CBC/C OMPLE TE BLD COUNT W/DIF F red blood cells 4.75 x10'6 /uL 3.80-5 .20 Not Available [facility] (Lab) [address] [place], [address], 04/25/2023 18:13:04 04/25/20 23 04/25/2023 CBC/C OMPLE TE BLD COUNT W/DIF F hemoglobin 15.1 g/dL 12.0-1 5.6 Not Available [facility] (Lab) [address] [place], [address], 04/25/2023 18:13:04 04/25/20 23 04/25/2023 CBC/C OMPLE TE BLD COUNT W/DIF F hematocrit 46.0 % 35.7-4 5.7 high Not Available [facility] (Lab) [address] [place], [address], 04/25/2023 18:13:04 04/25/20 23 04/25/2023 CBC/C OMPLE TE BLD COUNT W/DIF F mean red cell volume 96.8 fL 82.0-9 9.0 Not Available [facility] (Lab) [address] [place], [address], 04/25/2023 18:13:04 04/25/2004/25/2023 CBC/C OMPLE TE BLD COUNT W/DIF F mean red cell hemoglobin 31.8 pg 27.0-3 3.0 Not Available [facility] (Lab) [address] [place], [address], 04/25/2023 18:13:04 04/25/20 23 04/25/2023 CBC/C OMPLE TE BLD COUNT W/DIF F mean RBC HGB concentratio n 32.8 g/dL 31.0-3 6.0 Not Available [facility] (Lab) [address] [place], [address], 04/25/2023 18:13:04 04/25/20 23 04/25/2023 CBC/C OMPLE TE BLD COUNT W/DIF F red cell distribution width 12.8 % 11.8-1 5.5 Not Available [facility] (Lab) [address] [place], [address], 04/25/2023 18:13:04 04/25/20 23 04/25/2023 CBC/C OMPLE TE BLD COUNT W/DIF F platelets 196 x10'3 /uL 150-40 0 Not Available [facility] (Lab) [address] [place], [address], 04/25/2023 18:13:04 04/25/20 23 04/25/2023 CBC/C OMPLE TE BLD COUNT W/DIF F mean platelet volume 14.1 fL 9.0-12 .4 high Not Available [facility] (Lab) [address] [place], [address], 04/25/2023 18:13:04 04/25/20 23 04/25/2023 CBC/C OMPLE TE BLD COUNT W/DIF F neutrophils 72.8 % 39.0-7 2.0 high Not Available [facility] (Lab) [address] [place], [address], 04/25/2023 18:13:04 04/25/2004/25/2023 CBC/C OMPLE TE BLD COUNT W/DIF F lymphocytes 16.2 % 16.0-4 7.0 Not Available [facility] (Lab) [address] [place], [address], 04/25/2023 18:13:04 04/25/20 23 04/25/2023 CBC/C OMPLE TE BLD COUNT W/DIF F monocytes 7.2 % 5.0-12 .0 Not Available [facility] (Lab) [address] [place], [address], 04/25/2023 18:13:04 04/25/2004/25/2023 CBC/C OMPLE TE BLD COUNT W/DIF F eosinophils 2.8 % 1.0-7. 0 Not Available [facility] (Lab) [address] [place], [address], 04/25/2023 18:13:04 04/25/2004/25/2023 CBC/C OMPLE TE BLD COUNT W/DIF F basophils 0.8 % 0.0-2. 0 Not Available [facility] (Lab) [address] [place], [address], 04/25/2023 18:13:04 04/25/2004/25/2023 CBC/C OMPLE TE BLD COUNT W/DIF F immature granulocytes 0.2 % 0.00-0 .50 Not Available [facility] (Lab) [address] [place], [address], 04/25/2023 18:13:04 04/25/20 23 04/25/2023 CBC/C OMPLE TE BLD COUNT W/DIF F neutrophils, absolute count 4.64 x10'3 /uL 1.5-8. 0 Not Available [facility] (Lab) [address] [place], [address], 04/25/2023 18:13:04 04/25/20 23 04/25/2023 CBC/C OMPLE TE BLD COUNT W/DIF F lymphocytes, absolute count 1.03 x10'3 /uL 1.07-3 .43 low Not Available [facility] (Lab) [address] [place], [address], 04/25/2023 18:13:04 04/25/2004/25/2023 CBC/C OMPLE TE BLD COUNT W/DIF F monocytes, absolute count 0.46 x10'3 /uL 0.29-0 .99 Not Available [facility] (Lab) [address] [place], [address], 04/25/2023 18:13:04 04/25/2004/25/2023 CBC/C OMPLE TE BLD COUNT W/DIF F eosinophils, absolute count 0.18 x10'3 /uL 0.02-0 .53 Not Available [facility] (Lab) [address] [place], [address], 04/25/2023 18:13:04 04/25/2004/25/2023 CBC/C OMPLE TE BLD COUNT W/DIF F basophils, absolute count 0.05 x10'3 /uL 0.01-0 .08 Not Available [facility] (Lab) [address] [place], [address], 04/25/2023 18:13:04 04/25/2004/25/2023 CBC/C OMPLE TE BLD COUNT W/DIF F immature granulocytes ,absolute 0.01 x10'3 /uL 0.00-0 .05 Not Available [facility] (Lab) [address] [place], [address], 04/25/2023 18:13:04 04/25/20 23 04/25/2023 CBC/C OMPLE TE BLD COUNT W/DIF F nucleated red blood cells 0.0 % -0 Not Available [facility] (Lab) [address] [place], [address], 04/25/2023 18:13:04 04/25/20 23 04/25/2023 CBC/C OMPLE TE BLD COUNT W/DIF F NRBC# 0.00 x10'3 /uL Not Available [facility] (Lab) [address] [place], [address], 04/25/2023 18:13:04 04/25/20 23 04/25/2023 COMPR EHENS JOSE FRANCISCO METAB OLIC PANEL sodium 135 mmol/ L 137-14 5 low Not Available [facility] (Lab) [address] [place], [address], 04/25/2023 19:16:17 04/25/20 23 04/25/2023 COMPR EHENS JOSE FRANCISCO METAB OLIC PANEL potassium 4.6 mmol/ L 3.5-5. 1 Not Available [facility] (Lab) [address] [place], [address], 04/25/2023 19:16:17 04/25/20 23 04/25/2023 COMPR EHENS JOSE FRANCISCO METAB OLIC PANEL chloride 98 mmol/ L 98-107 Not Available [facility] (Lab) [address] [place], [address], 04/25/2023 19:16:17 04/25/20 23 04/25/2023 COMPR EHENS JOSE FRANCISCO METAB OLIC PANEL carbon dioxide 27 mmol/ L 22-30 Not Available [facility] (Lab) [address] [place], [address], 04/25/2023 19:16:17 04/25/20 23 04/25/2023 COMPR EHENS JOSE FRANCISCO METAB OLIC PANEL anion gap 14.6 mmol/ L 14-22 Not Available [facility] (Lab) [address] [place], [address], 04/25/2023 19:16:17 04/25/20 23 04/25/2023 COMPR EHENS JOSE FRANCISCO METAB OLIC PANEL glucose 312 mg/dL 70-99 high Not Available [facility] (Lab) [address] [place], [address], 04/25/2023 19:16:17 04/25/20 23 04/25/2023 COMPR EHENS JOSE FRANCISCO METAB OLIC PANEL BUN 14 mg/dL 8-19 Not Available [facility] (Lab) [address] [place], [address], 04/25/2023 19:16:17 04/25/20 23 04/25/2023 COMPR EHENS JOSE FRANCISCO METAB OLIC PANEL creatinine 0.70 mg/dL 0.66-1 .25 Not Available [facility] (Lab) [address] [place], [address], 04/25/2023 19:16:17 04/25/2004/25/2023 COMPR EHENS JOSE FRANCISCO METAB OLIC PANEL GFR >60 Refer ence Range : [place] GFR Healt hy Adult : >60 mL/mi n/1.7 3 m2 Chron ic Kidne y Disea se: 15-60 mL/mi n/1.7 3 m2 Kidne y Failu re: <15/m L/min /1.73 m2 www.n iddk. nih.g ov The MDRD study equat ion has not been valid ated in child mera <18 years of age; pregn ant women ; the elder ly >85 years of age; or in some racia l or ethni c subgr oups, such as Hispa nics. Outsi de the valid ated bill eters , estim ated GFR is less accur ate, requi ring clini cesar judgm ent on a case- by-ca se basis . Clini cesar inter preta tion for other races and ages must be made by the clini nikhil. The MDRD study equat ion has not been valid ated for the evalu ation of serum creat inine relat ed to nutri diana l statu s or medic ation usage . For perso ns <18 years of age, a pedia tric GFR calcu lator is avail able on the [facility] websi te: https ://ww w.kid sarai.o rg/pr ofess ional s/kdo qi/gf r_cal culat or Not Available [facility] (Lab) [address] [place], [address], 04/25/2023 19:16:17 04/25/2004/25/2023 COMPR EHENS JOSE FRANCISCO METAB OLIC PANEL alkaline phosphatase 121 U/L 38-126 Not Available [facility] (Lab) [address] [place], [address], 04/25/2023 19:16:17 04/25/2004/25/2023 COMPR EHENS JOSE FRANCISCO METAB OLIC PANEL alanine aminotransfe rase 53 U/L 0-35 high Not Available [facility] (Lab) [address] [place], [address], 04/25/2023 19:16:17 04/25/2004/25/2023 COMPR EHENS JOSE FRANCISCO METAB OLIC PANEL aspartate aminotransfe rase 67 U/L 15-37 high Not Available [facility] (Lab) [address] [place], [address], 04/25/2023 19:16:17 04/25/2004/25/2023 COMPR EHENS JOSE FRANCISCO METAB OLIC PANEL bilirubin, total 0.50 mg/dL 0.20-1 .30 Not Available [facility] (Lab) [address] [place], [address], 04/25/2023 19:16:17 04/25/2004/25/2023 COMPR EHENS JOSE FRANCISCO METAB OLIC PANEL calcium 9.8 mg/dL 8.4-10 .2 Not Available [facility] (Lab) [address] [place], [address], 04/25/2023 19:16:17 04/25/20 23 04/25/2023 COMPR EHENS JOSE FRANCISCO METAB OLIC PANEL total protein 7.7 g/dL 6.3-8. 2 Not Available [facility] (Lab) [address] [place], [address], 04/25/2023 19:16:17 04/25/20 23 04/25/2023 COMPR EHENS JOSE FRANCISCO METAB OLIC PANEL albumin 4.6 g/dL 3.0-4. 4 high Not Available [facility] (Lab) [address] [place], [address], 04/25/2023 19:16:17 04/25/2004/25/2023 COMPR EHENS JOSE FRANCISCO METAB OLIC PANEL globulin 3.1 g/dL 2.6-4. 2 Not Available [facility] (Lab) [address] [place], [address], 04/25/2023 19:16:17 04/25/2004/25/2023 COMPR EHENS JOSE FRANCISCO METAB OLIC PANEL A/G ratio 1.5 ratio 1.0-2. 0 Not Available [facility] (Lab) [address] [place], [address], 04/25/2023 19:16:17 04/25/20 23 04/25/2023 LIPID PANEL cholesterol 210 mg/dL 140-19 9 high NIH JESUS NSUS RECOM MENDA TION FOR DALIA STERO L: ADULT CHILD LOW RISK: <200 <170 BORDE RLINE : <200- 239 ----- HIGH RISK: >240 >200 Not Available [facility] (Lab) [address] [place], [address], 04/25/2023 19:16:22 04/25/2004/25/2023 LIPID PANEL triglyceride s 388 mg/dL 0-150 high NIH JESUS NSUS REPOR T RECOM MENDA TION FOR TRIGL YCERI XIOMARA: ADULT CHILD LOW RISK: <150 ----- BODER LINE: 150-1 99 ----- HIGH RISK: >200 ----- Not Available [facility] (Lab) [address] [place], [address], 04/25/2023 19:16:22 04/25/2004/25/2023 LIPID PANEL HDL cholesterol 61 mg/dL 40- Not Available [facility] (Lab) [address] [place], [address], 04/25/2023 19:16:22 04/25/2004/25/2023 LIPID PANEL LDL cholesterol, calculated 71 mg/dL 0-130 NIH JESUS NSUS REPOR T RECOM MENDA TIONS FOR LDL: ADULT CHILD LOW RISK <130 <110 (OPTI MAL LDL) <100 ----- DANIEL RLINE : 130-1 59 ----- HIGH RISK: >160 >130 A TRIGL YCERI DE RESUL T >400 INVAL IDATE S THE CALCU LATIO N FOR LDL FRACT IONAT ION - THE LDL RESUL T WILL NOT BE REPOR ADAM. Not Available [facility] (Lab) [address] [place], [address], 04/25/2023 19:16:22 04/25/2004/25/2023 HEMOG LOBIN A1C HA1C 9.4 % 4.0-6. 0 high Diabe eugene Scree rut Crite liza: <5.7% Consi stent with absen ce of diabe eugene 5.7-6 .4% Consi stent with incre ased risk for diabe eugene (pred iabet es) >OR=6 .5% Consi stent with diabe eugene REFER ENCE: Diabe eugene Care 2016, 39(Stacy ppl.1 ):s13 -s22 Not Available [facility] (Lab) [address] [place], [address], 04/25/2023 19:43:58 12/17/19 24 12/17/2023 CBC/C OMPLE TE BLD COUNT W/DIF F white blood cells 6.1 x10'3 /uL 4.2-10 .8 Not Available [facility] (Lab) [address] [place], [address], 12/17/2023 15:41:58 12/17/19 24 12/17/2023 CBC/C OMPLE TE BLD COUNT W/DIF F red blood cells 4.38 x10'6 /uL 3.80-5 .20 Not Available [facility] (Lab) [address] [place], [address], 12/17/2023 15:41:58 12/17/19 24 12/17/2023 CBC/C OMPLE TE BLD COUNT W/DIF F hemoglobin 14.3 g/dL 12.0-1 5.6 Not Available [facility] (Lab) [address] [place], [address], 12/17/2023 15:41:58 12/17/19 24 12/17/2023 CBC/C OMPLE TE BLD COUNT W/DIF F hematocrit 42.7 % 35.7-4 5.7 Not Available [facility] (Lab) [address] [place], [address], 12/17/2023 15:41:58 12/17/19 24 12/17/2023 CBC/C OMPLE TE BLD COUNT W/DIF F mean red cell volume 97.5 fL 82.0-9 9.0 Not Available [facility] (Lab) [address] [place], [address], 12/17/2023 15:41:58 12/17/19 24 12/17/2023 CBC/C OMPLE TE BLD COUNT W/DIF F mean red cell hemoglobin 32.6 pg 27.0-3 3.0 Not Available [facility] (Lab) [address] [place], [address], 12/17/2023 15:41:58 12/17/19 24 12/17/2023 CBC/C OMPLE TE BLD COUNT W/DIF F mean RBC HGB concentratio n 33.5 g/dL 31.0-3 6.0 Not Available [facility] (Lab) [address] [place], [address], 12/17/2023 15:41:58 12/17/19 24 12/17/2023 CBC/C OMPLE TE BLD COUNT W/DIF F red cell distribution width 13.2 % 11.8-1 5.5 Not Available [facility] (Lab) [address] [place], [address], 12/17/2023 15:41:58 12/17/19 24 12/17/2023 CBC/C OMPLE TE BLD COUNT W/DIF F platelets 216 x10'3 /uL 150-40 0 Not Available [facility] (Lab) [address] [place], [address], 12/17/2023 15:41:58 12/17/19 24 12/17/2023 CBC/C OMPLE TE BLD COUNT W/DIF F mean platelet volume 13.8 fL 9.0-12 .4 high Not Available [facility] (Lab) [address] [place], [address], 12/17/2023 15:41:58 12/17/19 24 12/17/2023 CBC/C OMPLE TE BLD COUNT W/DIF F neutrophils 70.5 % 39.0-7 2.0 Not Available [facility] (Lab) [address] [place], [address], 12/17/2023 15:41:58 12/17/19 24 12/17/2023 CBC/C OMPLE TE BLD COUNT W/DIF F lymphocytes 20.8 % 16.0-4 7.0 Not Available [facility] (Lab) [address] [place], [address], 12/17/2023 15:41:58 12/17/19 24 12/17/2023 CBC/C OMPLE TE BLD COUNT W/DIF F monocytes 5.4 % 5.0-12 .0 Not Available [facility] (Lab) [address] [place], [address], 12/17/2023 15:41:58 12/17/19 24 12/17/2023 CBC/C OMPLE TE BLD COUNT W/DIF F eosinophils 2.3 % 1.0-7. 0 Not Available [facility] (Lab) [address] [place], [address], 12/17/2023 15:41:58 12/17/19 24 12/17/2023 CBC/C OMPLE TE BLD COUNT W/DIF F basophils 0.8 % 0.0-2. 0 Not Available [facility] (Lab) [address] [place], [address], 12/17/2023 15:41:58 12/17/19 24 12/17/2023 CBC/C OMPLE TE BLD COUNT W/DIF F immature granulocytes 0.2 % 0.00-0 .50 Not Available [facility] (Lab) [address] [place], [address], 12/17/2023 15:41:58 12/17/19 24 12/17/2023 CBC/C OMPLE TE BLD COUNT W/DIF F neutrophils, absolute count 4.30 x10'3 /uL 1.5-8. 0 Not Available [facility] (Lab) [address] [place], [address], 12/17/2023 15:41:58 12/17/19 24 12/17/2023 CBC/C OMPLE TE BLD COUNT W/DIF F lymphocytes, absolute count 1.27 x10'3 /uL 1.07-3 .43 Not Available [facility] (Lab) [address] [place], [address], 12/17/2023 15:41:58 12/17/19 24 12/17/2023 CBC/C OMPLE TE BLD COUNT W/DIF F monocytes, absolute count 0.33 x10'3 /uL 0.29-0 .99 Not Available [facility] (Lab) [address] [place], [address], 12/17/2023 15:41:58 12/17/19 24 12/17/2023 CBC/C OMPLE TE BLD COUNT W/DIF F eosinophils, absolute count 0.14 x10'3 /uL 0.02-0 .53 Not Available [facility] (Lab) [address] [place], [address], 12/17/2023 15:41:58 12/17/19 24 12/17/2023 CBC/C OMPLE TE BLD COUNT W/DIF F basophils, absolute count 0.05 x10'3 /uL 0.01-0 .08 Not Available [facility] (Lab) [address] [place], [address], 12/17/2023 15:41:58 12/17/19 24 12/17/2023 CBC/C OMPLE TE BLD COUNT W/DIF F immature granulocytes ,absolute 0.01 x10'3 /uL 0.00-0 .05 Not Available [facility] (Lab) [address] [place], [address], 12/17/2023 15:41:58 12/17/19 24 12/17/2023 CBC/C OMPLE TE BLD COUNT W/DIF F nucleated red blood cells 0.0 % -0 Not Available [facility] (Lab) [address] [place], [address], 12/17/2023 15:41:58 12/17/19 24 12/17/2023 CBC/C OMPLE TE BLD COUNT W/DIF F NRBC# 0.00 x10'3 /uL Not Available [facility] (Lab) [address] [place], [address], 12/17/2023 15:41:58 12/17/19 24 12/17/2023 LIPID PANEL cholesterol 250 mg/dL 140-19 9 high NIH JESUS NSUS RECOM MENDA TION FOR DALIA STERO L: ADULT CHILD LOW RISK: <200 <170 BORDE RLINE : <200- 239 ----- HIGH RISK: >240 >200 Not Available [facility] (Lab) [address] [place], [address], 12/17/2023 18:07:15 12/17/19 24 12/17/2023 LIPID PANEL triglyceride s 435 mg/dL 0-150 high NIH JESUS NSUS REPOR T RECOM MENDA TION FOR TRIGL YCERI XIOMARA: ADULT CHILD LOW RISK: <150 ----- BODER LINE: 150-1 99 ----- HIGH RISK: >200 ----- Not Available [facility] (Lab) [address] [place], [address], 12/17/2023 18:07:15 12/17/19 24 12/17/2023 LIPID PANEL HDL cholesterol 60 mg/dL 40- Not Available [facility] (Lab) [address] [place], [address], 12/17/2023 18:07:15 12/17/19 24 12/17/2023 COMPR EHENS JOSE FRANCISCO METAB OLIC PANEL sodium 138 mmol/ L 137-14 5 Not Available [facility] (Lab) [address] [place], [address], 12/17/2023 18:07:21 12/17/19 24 12/17/2023 COMPR EHENS JOSE FRANCISCO METAB OLIC PANEL potassium 4.1 mmol/ L 3.5-5. 1 Not Available [facility] (Lab) [address] [place], [address], 12/17/2023 18:07:21 12/17/19 24 12/17/2023 COMPR EHENS JOSE FRANCISCO METAB OLIC PANEL chloride 102 mmol/ L 98-107 Not Available [facility] (Lab) [address] [place], [address], 12/17/2023 18:07:21 12/17/19 24 12/17/2023 COMPR EHENS JOSE FRANCISCO METAB OLIC PANEL carbon dioxide 30 mmol/ L 22-30 Not Available [facility] (Lab) [address] [place], [address], 12/17/2023 18:07:21 12/17/19 24 12/17/2023 COMPR EHENS JOSE FRANCISCO METAB OLIC PANEL anion gap 10.1 mmol/ L 14-22 low Not Available [facility] (Lab) [address] [place], [address], 12/17/2023 18:07:21 12/17/19 24 12/17/2023 COMPR EHENS JOSE FRANCISCO METAB OLIC PANEL glucose 244 mg/dL 70-99 high Not Available [facility] (Lab) [address] [place], [address], 12/17/2023 18:07:21 12/17/19 24 12/17/2023 COMPR EHENS JOSE FRANCISCO METAB OLIC PANEL BUN 7 mg/dL 8-19 low Not Available [facility] (Lab) [address] [place], [address], 12/17/2023 18:07:21 12/17/19 24 12/17/2023 COMPR EHENS JOSE FRANCISCO METAB OLIC PANEL creatinine 0.79 mg/dL 0.66-1 .25 Not Available [facility] (Lab) [address] [place], [address], 12/17/2023 18:07:21 12/17/19 24 12/17/2023 COMPR EHENS JOSE FRANCISCO METAB OLIC PANEL GFR >60 Refer ence Range : [place] ge GFR Healt hy Adult : >60 mL/mi n/1.7 3 m2 Chron ic Kidne y Disea se: 15-60 mL/mi n/1.7 3 m2 Kidne y Failu re: <15/m L/min /1.73 m2 www.n iddk. nih.g ov The MDRD study equat ion has not been valid ated in child mera <18 years of age; pregn ant women ; the elder ly >85 years of age; or in some racia l or ethni c subgr oups, such as Hispa nics. Outsi de the valid ated bill eters , estim ated GFR is less accur ate, requi ring clini cesar judgm ent on a case- by-ca se basis . Clini cesar inter preta tion for other races and ages must be made by the clini nikhil. The MDRD study equat ion has not been valid ated for the evalu ation of serum creat inine relat ed to nutri diana l statu s or medic ation usage . For perso ns <18 years of age, a pedia tric GFR calcu lator is avail able on the [facility] websi te: https ://guanako moon.tao szymanski/hannah richards s/breno qi/gf r_cal culat or Not Available [facility] (Lab) [address] [place], [address], 12/17/2023 18:07:21 12/17/19 24 12/17/2023 COMPR EHENS JOSE FRANCISCO METAB OLIC PANEL alkaline phosphatase 124 U/L 38-126 Not Available [facility] (Lab) [address] [place], [address], 12/17/2023 18:07:21 12/17/19 24 12/17/2023 COMPR EHENS JOSE FRANCISCO METAB OLIC PANEL alanine aminotransfe rase 37 U/L 0-35 high Not Available [facility] (Lab) [address] [place], [address], 12/17/2023 18:07:21 12/17/19 24 12/17/2023 COMPR EHENS JOSE FRANCISCO METAB OLIC PANEL aspartate aminotransfe rase 41 U/L 15-37 high Not Available [facility] (Lab) [address] [place], [address], 12/17/2023 18:07:21 12/17/19 24 12/17/2023 COMPR EHENS JOSE FRANCISCO METAB OLIC PANEL bilirubin, total 0.60 mg/dL 0.20-1 .30 Not Available [facility] (Lab) [address] [place], [address], 12/17/2023 18:07:21 12/17/19 24 12/17/2023 COMPR EHENS JOSE FRANCISCO METAB OLIC PANEL calcium 9.8 mg/dL 8.4-10 .2 Not Available [facility] (Lab) [address] [place], [address], 12/17/2023 18:07:21 12/17/19 24 12/17/2023 COMPR EHENS JOSE FRANCISCO METAB OLIC PANEL total protein 7.0 g/dL 6.3-8. 2 Not Available [facility] (Lab) [address] [place], [address], 12/17/2023 18:07:21 12/17/19 24 12/17/2023 COMPR EHENS JOSE FRANCISCO METAB OLIC PANEL albumin 4.2 g/dL 3.0-4. 4 Not Available [facility] (Lab) [address] [place], [address], 12/17/2023 18:07:21 12/17/19 24 12/17/2023 COMPR EHENS JOSE FRANCISCO METAB OLIC PANEL globulin 2.8 g/dL 2.6-4. 2 Not Available [facility] (Lab) [address] [place], [address], 12/17/2023 18:07:21 12/17/19 24 12/17/2023 COMPR EHENS JOSE FRANCISCO METAB OLIC PANEL A/G ratio 1.5 ratio 1.0-2. 0 Not Available [facility] (Lab) [address] [place], [address], 12/17/2023 18:07:21 12/17/19 24 12/17/2023 T4 FREE free T4 0.93 NG/dL 0.78-2 .19 Not Available [facility] (Lab) [address] [place], [address], 12/17/2023 18:25:20 12/17/19 24 12/17/2023 T3 FREE free T3 3.0 pg/mL 2.77-5 .27 Not Available [facility] (Lab) [address] [place], [address], 12/17/2023 18:25:30 12/17/19 24 12/17/2023 TSH thyroid-stim ulating hormone 5.970 uIU/m L 0.465- 4.680 high Not Available [facility] (Lab) [address] [place], [address], 12/17/2023 18:40:27 12/17/19 24 12/17/2023 HEMOG LOBIN A1C HA1C 8.7 % 4.0-6. 0 high Diabe eugene Scree rut Crite liza: <5.7% Consi stent with absen ce of diabe eugene 5.7-6 .4% Consi stent with incre ased risk for diabe eugene (pred iabet es) >OR=6 .5% Consi stent with diabe eugene REFER ENCE: Diabe eugene Care 2016, 39(Stacy ppl.1 ):s13 -s22 Not Available [facility] (Lab) [address] [place], [address], 12/17/2023 21:30:16 05/07/20 24 05/07/2024 CBC/C OMPLE TE BLD COUNT W/DIF F white blood cells 6.3 x10'3 /uL 4.2-10 .8 Not Available [facility] (Lab) [address] [place], [address], 05/07/2024 16:53:41 05/07/20 24 05/07/2024 CBC/C OMPLE TE BLD COUNT W/DIF F red blood cells 4.64 x10'6 /uL 3.80-5 .20 Not Available [facility] (Lab) [address] [place], [address], 05/07/2024 16:53:41 05/07/20 24 05/07/2024 CBC/C OMPLE TE BLD COUNT W/DIF F hemoglobin 15.2 g/dL 12.0-1 5.6 Not Available [facility] (Lab) [address] [place], [address], 05/07/2024 16:53:41 05/07/20 24 05/07/2024 CBC/C OMPLE TE BLD COUNT W/DIF F hematocrit 45.0 % 35.7-4 5.7 Not Available [facility] (Lab) [address] [place], [address], 05/07/2024 16:53:41 05/07/20 24 05/07/2024 CBC/C OMPLE TE BLD COUNT W/DIF F mean red cell volume 97.0 fL 82.0-9 9.0 Not Available [facility] (Lab) [address] [place], [address], 05/07/2024 16:53:41 05/07/20 24 05/07/2024 CBC/C OMPLE TE BLD COUNT W/DIF F mean red cell hemoglobin 32.8 pg 27.0-3 3.0 Not Available [facility] (Lab) [address] [place], [address], 05/07/2024 16:53:41 05/07/20 24 05/07/2024 CBC/C OMPLE TE BLD COUNT W/DIF F mean RBC HGB concentratio n 33.8 g/dL 31.0-3 6.0 Not Available [facility] (Lab) [address] [place], [address], 05/07/2024 16:53:41 05/07/20 24 05/07/2024 CBC/C OMPLE TE BLD COUNT W/DIF F red cell distribution width 12.7 % 11.8-1 5.5 Not Available [facility] (Lab) [address] [place], [address], 05/07/2024 16:53:41 05/07/20 24 05/07/2024 CBC/C OMPLE TE BLD COUNT W/DIF F platelets 210 x10'3 /uL 150-40 0 Not Available [facility] (Lab) [address] [place], [address], 05/07/2024 16:53:41 05/07/20 24 05/07/2024 CBC/C OMPLE TE BLD COUNT W/DIF F mean platelet volume 13.7 fL 9.0-12 .4 high Not Available [facility] (Lab) [address] [place], [address], 05/07/2024 16:53:41 05/07/20 24 05/07/2024 CBC/C OMPLE TE BLD COUNT W/DIF F neutrophils 73.5 % 39.0-7 2.0 high Not Available [facility] (Lab) [address] [place], [address], 05/07/2024 16:53:41 05/07/20 24 05/07/2024 CBC/C OMPLE TE BLD COUNT W/DIF F lymphocytes 17.5 % 16.0-4 7.0 Not Available [facility] (Lab) [address] [place], [address], 05/07/2024 16:53:41 05/07/20 24 05/07/2024 CBC/C OMPLE TE BLD COUNT W/DIF F monocytes 6.0 % 5.0-12 .0 Not Available [facility] (Lab) [address] [place], [address], 05/07/2024 16:53:41 05/07/20 24 05/07/2024 CBC/C OMPLE TE BLD COUNT W/DIF F eosinophils 1.9 % 1.0-7. 0 Not Available [facility] (Lab) [address] [place], [address], 05/07/2024 16:53:41 05/07/20 24 05/07/2024 CBC/C OMPLE TE BLD COUNT W/DIF F basophils 0.8 % 0.0-2. 0 Not Available [facility] (Lab) [address] [place], [address], 05/07/2024 16:53:41 05/07/20 24 05/07/2024 CBC/C OMPLE TE BLD COUNT W/DIF F immature granulocytes 0.3 % 0.00-0 .50 Not Available [facility] (Lab) [address] [place], [address], 05/07/2024 16:53:41 05/07/20 24 05/07/2024 CBC/C OMPLE TE BLD COUNT W/DIF F neutrophils, absolute count 4.63 x10'3 /uL 1.5-8. 0 Not Available [facility] [place] ([facility]) [address] [place], [address], 05/07/2024 16:53:41 05/07/20 24 05/07/2024 CBC/C OMPLE TE BLD COUNT W/DIF F lymphocytes, absolute count 1.10 x10'3 /uL 1.07-3 .43 Not Available [facility] (Lab) [address] [place], [address], 05/07/2024 16:53:41 05/07/20 24 05/07/2024 CBC/C OMPLE TE BLD COUNT W/DIF F monocytes, absolute count 0.38 x10'3 /uL 0.29-0 .99 Not Available [facility] (Lab) [address] [place], [address], 05/07/2024 16:53:41 05/07/20 24 05/07/2024 CBC/C OMPLE TE BLD COUNT W/DIF F eosinophils, absolute count 0.12 x10'3 /uL 0.02-0 .53 Not Available [facility] (Lab) [address] [place], [address], 05/07/2024 16:53:41 05/07/20 24 05/07/2024 CBC/C OMPLE TE BLD COUNT W/DIF F basophils, absolute count 0.05 x10'3 /uL 0.01-0 .08 Not Available [facility] (Lab) [address] [place], [address], 05/07/2024 16:53:41 05/07/20 24 05/07/2024 CBC/C OMPLE TE BLD COUNT W/DIF F immature granulocytes ,absolute 0.02 x10'3 /uL 0.00-0 .05 Not Available [facility] (Lab) [address] [place], [address], 05/07/2024 16:53:41 05/07/20 24 05/07/2024 CBC/C OMPLE TE BLD COUNT W/DIF F nucleated red blood cells 0.0 % -0 Not Available [facility] (Lab) [address] [place], [address], 05/07/2024 16:53:41 05/07/20 24 05/07/2024 CBC/C OMPLE TE BLD COUNT W/DIF F NRBC# 0.00 x10'3 /uL Not Available [facility] (Lab) [address] [place], [address], 05/07/2024 16:53:41 05/07/20 24 05/07/2024 LIPID PANEL cholesterol 329 mg/dL 140-19 9 high NIH JESUS NSUS RECOM MENDA TION FOR DALIA STERO L: ADULT CHILD LOW RISK: <200 <170 BORDE RLINE : <200- 239 ----- HIGH RISK: >240 >200 Not Available [facility] (Lab) [address] [place], [address], 05/07/2024 17:14:27 05/07/20 24 05/07/2024 LIPID PANEL triglyceride s 690 mg/dL 0-150 high NIH JESUS NSUS REPOR T RECOM MENDA TION FOR TRIGL YCERI XIOMARA: ADULT CHILD LOW RISK: <150 ----- BODER LINE: 150-1 99 ----- HIGH RISK: >200 ----- Not Available [facility] (Lab) [address] [place], [address], 05/07/2024 17:14:27 05/07/20 24 05/07/2024 LIPID PANEL HDL cholesterol 56 mg/dL 40- Not Available [facility] (Lab) [address] [place], [address], 05/07/2024 17:14:27 05/07/20 24 05/07/2024 COMPR EHENS JOSE FRANCISCO METAB OLIC PANEL sodium 135 mmol/ L 137-14 5 low Not Available [facility] (Lab) [address] [place], [address], 05/07/2024 17:14:12 05/07/20 24 05/07/2024 COMPR EHENS JOSE FRANCISCO METAB OLIC PANEL potassium 4.6 mmol/ L 3.5-5. 1 Not Available [facility] (Lab) [address] [place], [address], 05/07/2024 17:14:12 05/07/20 24 05/07/2024 COMPR EHENS JOSE FRANCISCO METAB OLIC PANEL chloride 101 mmol/ L 98-107 Not Available [facility] (Lab) [address] [place], [address], 05/07/2024 17:14:12 05/07/20 24 05/07/2024 COMPR EHENS JOSE FRANCISCO METAB OLIC PANEL carbon dioxide 25 mmol/ L 22-30 Not Available [facility] (Lab) [address] [place], [address], 05/07/2024 17:14:12 05/07/20 24 05/07/2024 COMPR EHENS JOSE FRANCISCO METAB OLIC PANEL anion gap 13.6 mmol/ L 14- low Not Available [facility] (Lab) [address] [place], [address], 05/07/2024 17:14:12 05/07/20 24 05/07/2024 COMPR EHENS JOSE FRANCISCO METAB OLIC PANEL glucose 305 mg/dL 70-99 high Not Available [facility] (Lab) [address] [place], [address], 05/07/2024 17:14:12 05/07/20 24 05/07/2024 COMPR EHENS JOSE FRANCISCO METAB OLIC PANEL BUN 9 mg/dL 8-19 Not Available [facility] (Lab) [address] [place], [address], 05/07/2024 17:14:12 05/07/20 24 05/07/2024 COMPR EHENS JOSE FRANCISCO METAB OLIC PANEL creatinine 0.79 mg/dL 0.66-1 .25 Not Available [facility] (Lab) [address] [place], [address], 05/07/2024 17:14:12 05/07/20 24 05/07/2024 COMPR EHENS JOSE FRANCISCO METAB OLIC PANEL GFR >60 Refer ence Range : [place] ge GFR Healt hy Adult : >60 mL/mi n/1.7 3 m2 Chron ic Kidne y Disea se: 15-60 mL/mi n/1.7 3 m2 Kidne y Failu re: <15/m L/min /1.73 m2 www.n iddk. nih.g ov The MDRD study equat ion has not been valid ated in child mera <18 years of age; pregn ant women ; the elder ly >85 years of age; or in some racia l or ethni c subgr oups, such as Hispa nics. Outsi de the valid ated bill eters , estim ated GFR is less accur ate, requi ring clini cesar judgm ent on a case- by-ca se basis . Clini cesar inter preta tion for other races and ages must be made by the clini nikhil. The MDRD study equat ion has not been valid ated for the evalu ation of serum creat inine relat ed to nutri diana l statu s or medic ation usage . For perso ns <18 years of age, a pedia tric GFR calcu lator is avail able on the [facility] websi te: https ://guanako w.santosh moon.o rg/pr ofess ional s/kdo qi/gf r_cal culat or Not Available [facility] (Lab) [address] [place], [address], 05/07/2024 17:14:12 05/07/20 24 05/07/2024 COMPR EHENS JOSE FRANCISCO METAB OLIC PANEL alkaline phosphatase 143 U/L 38-126 high Not Available [facility] (Lab) [address] [place], [address], 05/07/2024 17:14:12 05/07/20 24 05/07/2024 COMPR EHENS JOSE FRANCISCO METAB OLIC PANEL alanine aminotransfe rase 29 U/L 0-35 Not Available [facility] (Lab) [address] [place], [address], 05/07/2024 17:14:12 05/07/20 24 05/07/2024 COMPR EHENS JOSE FRANCISCO METAB OLIC PANEL aspartate aminotransfe rase 32 U/L 15-37 Not Available [facility] (Lab) [address] [place], [address], 05/07/2024 17:14:12 05/07/20 24 05/07/2024 COMPR EHENS JOSE FRANCISCO METAB OLIC PANEL bilirubin, total 0.60 mg/dL 0.20-1 .30 Not Available [facility] (Lab) [address] [place], [address], 05/07/2024 17:14:12 05/07/20 24 05/07/2024 COMPR EHENS JOSE FRANCISCO METAB OLIC PANEL calcium 10.1 mg/dL 8.4-10 .2 Not Available [facility] (Lab) [address] [place], [address], 05/07/2024 17:14:12 05/07/20 24 05/07/2024 COMPR EHENS JOSE FRANCISCO METAB OLIC PANEL total protein 7.3 g/dL 6.3-8. 2 Not Available [facility] (Lab) [address] [place], [address], 05/07/2024 17:14:12 05/07/20 24 05/07/2024 COMPR EHENS JOSE FRANCISCO METAB OLIC PANEL albumin 4.2 g/dL 3.0-4. 4 Not Available [facility] (Lab) [address] [place], [address], 05/07/2024 17:14:12 05/07/20 24 05/07/2024 COMPR EHENS JOSE FRANCISCO METAB OLIC PANEL globulin 3.1 g/dL 2.6-4. 2 Not Available [facility] (Lab) [address] [place], [address], 05/07/2024 17:14:12 05/07/20 24 05/07/2024 COMPR EHENS JOSE FRANCISCO METAB OLIC PANEL A/G ratio 1.4 ratio 1.0-2. 0 Not Available [facility] (Lab) [address] [place], [address], 05/07/2024 17:14:12 05/07/20 24 05/07/2024 T4 FREE free T4 1.40 NG/dL 0.78-2 .19 Not Available [facility] (Lab) [address] [place], [address], 05/07/2024 17:20:54 05/07/20 24 05/07/2024 T3 FREE free T3 3.2 pg/mL 2.77-5 .27 Not Available [facility] (Lab) [address] [place], [address], 05/07/2024 17:20:59 05/07/20 24 05/07/2024 TSH thyroid-stim ulating hormone 4.840 uIU/m L 0.465- 4.680 high Not Available [facility] (Lab) [address] [place], [address], 05/07/2024 17:41:26 05/07/20 24 05/07/2024 HEMOG LOBIN A1C HA1C 11.9 % 4.0-6. 0 high Diabe eugene Scree rut Crite liza: <5.7% Consi stent with absen ce of diabe eugene 5.7-6 .4% Consi stent with incre ased risk for diabe eugene (pred iabet es) >OR=6 .5% Consi stent with diabe eugene REFER ENCE: Diabe eugene Care 2016, 39(Stacy ppl.1 ):s13 -s22 Not Available [facility] (Lab) [address] [place], [address], 05/07/2024 20:04:35 Result Notes None recorded. Problems Name Problem SNOMED Code Status Onset Date Resolution Date Notes Provider Name and Address Organization Details Recorded Time Flank pain 820019691 Active 2022 Not Available [facility] 3 08:15:23 Increased frequency of urination 209095531 Active 2022 Chaparrita Herron RN null, [place] [facility] 3 14:12:09 Spinal enthesopat hy 74922452 Active Not Available [facility] 3 08:15:22 Pain in lower limb 14502246 Completed Not Available [facility] 3 04:52:36 Disorder of shoulder 922014689 Active Not Available [facility] 3 08:15:22 Backache 390001401 Active Not Available [facility] 3 08:15:22 Anxiety state 096478959 Active Not Available [facility] 3 08:15:22 Pain of sacroiliac joint 797543663 Active 2019 Not Available [facility] 3 08:15:22 Abdominal pain 02351782 Completed Not Available [facility] 3 04:52:37 Herpesviru s infection 08995356 Active 2021 Not Available [facility] 3 08:15:22 Depressive disorder 36681722 Active Not Available [facility] 3 08:15:23 Osteoarthr itis 280699707 Active 2021 Not Available [facility] 3 08:15:23 Hypothyroi dism 58235011 Active Not Available [facility] 3 08:15:23 Acute urinary tract infection 187317899 Active 2021 Not Available [facility] 3 08:15:23 Type 2 diabetes mellitus 55483121 Active 2021 Not Available [facility] 3 08:15:23 Herpes zoster 3137481 Active Not Available [facility] 3 08:15:23 Anxiety 56189411 Active 2021 Not Available [facility] 3 08:15:23 Pain of hip region 09023253 Active Not Available [facility] 3 08:15:23 Dysuria 96226812 Active Not Available [facility] 3 08:15:23 Hyperlipid emia 24189329 Active Not Available [facility] 3 08:15:23 Mary Ann s of vagina 60732033 Active 2021 Not Available [facility] 3 08:15:23 Diabetes mellitus 09986290 Active 2017 Not Available [facility] 3 08:15:23 Problem Notes None recorded. Procedures Surgical History Date Name Laterality Status Provider Name and Address Organization Details Recorded Time 12/20/19 19 Most Recent Bone Density completed Not Available [facility] 11/14/2022 04:43:02 10/30/19 19 Back Surgery completed Not Available [facility] 023 04:43:09 11/20/19 18 Cataract Surgery completed Not Available [facility] 09/2022 04:43:09 04/18/20 10 Date of Last Colonoscopy completed Not Available [facility] 11/14/2022 04:43:02 Cataract Surgery completed Not Available [facility] 11/14/2022 04:43:09 Tonsillectomy completed Not Available [facility] 11/14/2022 04:43:09 completed Not Available [facility] 0 11/14/2022 04:43:09 Unlisted px phrnx adnd/tnsl completed Not Available [facility] 11/14/2022 04:43:09 biopsy of liver completed Not Available [facility] 11/14/2022 04:43:09 Appendectomy completed Not Available [facility] 11/14/2022 04:43:09 total knee replacement completed Not Available [facility] 11/14/2022 04:43:09 completed Not Available [facility] 0 11/14/2022 04:43:09 Carpal tunnel completed Not Available [facility] 11/14/2022 04:43:09 Imaging Results None recorded. Procedure Notes None recorded. Medical Equipment None Reported. Allergies No known drug allergies Medications Name Sig Start Date Stop Date Status Note LastModified by Organization Details LastModified Time atorvasta tin 40 mg tablet TAKE 1 TABLET BY MOUTH EVERY DAY active Not Available Not Available No t Available metformin 500 mg tablet TAKE 2 TABLETS BY MOUTH IN THE MORNING AND TAKE 2 TABLET AT NIGHT active Not Available Not Available No t Available prednison e 10 mg tablet TAKE 1 TAB BY MOUTH 3 TIMES A DAY X3 DAYS, 1 TAB TWICE A DAY X2 DAYS, 1 TAB ONCE A DAY X1 DAY active Not Available Not Available No t Available paroxetin e 10 mg tablet TAKE 1 TABLET BY MOUTH EVERY DAY active Not Available Not Available No t Available azithromy breezy 250 mg tablet TAKE 2 TABLETS (500 MG) BY ORAL ROUTE ONCE DAILY FOR 1 DAY THEN 1 TABLET (250 MG) BY ORAL ROUTE ONCE DAILY FOR 4 DAYS 11/23 completed Not Available Not Available Not Available fluconazo le 150 mg tablet TAKE 1 TABLET BY MOUTH EVERY DAY active Not Available Not Available No t Available valacyclo vir 1 gram tablet TAKE 1 TABLET BY MOUTH TWICE A DAY FOR 7 DAYS active Not Available Not Available No t Available hydrocodo ne 5 mg-acetam inophen 325 mg tablet 01/16 completed Not Available Not Available Not Available meloxicam 15 mg tablet TAKE 1 TABLET BY MOUTH EVERY DAY active Not Available Not Available No t Available prednison e 20 mg tablet TAKE 2 TABLETS BY MOUTH EVERY DAY FOR 5 DAYS 07/19 completed Not Available Not Available Not Available Seroquel 25 mg tablet Take 0.5 tablets every day by oral route at bedtime. 12/05 completed error Not Available Not Available Not Available Accu-Chek Softclix Lancets use to test blood sugars once a day active Not Available Not Available No t Available valacyclo vir 500 mg tablet 01/04 completed Not Available Not Available Not Available sulfameth oxazole 800 mg-trimet hoprim 160 mg tablet Take 1 tablet every 12 hours by oral route for 7 days. 05/01 completed Not Available Not Available Not Available omeprazol e 40 mg capsule,d elayed release qd 03/02 completed Not Available Not Available Not Available simvastat in 40 mg tablet Take 1 tablet every day by oral route. active Not Available Not Available No t Available glimepiri de 1 mg tablet TAKE 1 TABLET BY MOUTH EVERY DAY 2023 active Not Available Not Available Not Avai lable levothyro xine 75 mcg tablet TAKE 1 TABLET BY MOUTH EVERY DAY active Not Available Not Available No t Available ketorolac 0.5 % eye drops 02/04 completed Not Available Not Available Not Available prednison e 10 mg tablets in a dose pack Take 1 tab by mouth, 3 times a day for 3 daysTake 1 tab by mouth 2 times a day for 2 daysTake 1 tab by mouth once a day for 1 day 06/30 completed Not Available Not Available Not Available Celebrex 200 mg capsule active Not Available Not Available Not Available meloxicam 7.5 mg tablet 1 bid active Not Available Not Available Not Available levothyro xine 100 mcg tablet TAKE 1 TABLET BY MOUTH EVERY DAY active Not Available Not Available No t Available oxycodone -acetamin ophen 5 mg-325 mg tablet 06/09 completed Not Available Not Available Not Available prednisol one acetate 1 % eye drops,seng pension 12/03 completed Not Available Not Available Not Available lorazepam 0.5 mg tablet TAKE 2 TABLETS BY MOUTH TWICE A DAY NEEDED 07/31 completed Not Available Not Available Not Available oxycodone -acetamin ophen 10 mg-325 mg tablet active Not Available Not Available Not Available ciproflox acin 0.3 % eye drops 12/03 completed Not Available Not Available Not Available Kenalog 10 mg/mL suspensio n for injection In office injectio n administ ered by the provider 06/30 completed ND: [id number] 01-03 Not Available Not Available Not Available benzonata te 100 mg capsule TAKE 1 CAPSULE BY MOUTH EVERY 8 HOURS NEEDED FOR COUGH AND CONGESTI ON 11/23 completed Not Available Not Available Not Available cephalexi n 500 mg capsule 09/20 completed Not Available Not Available Not Available simvastat in 20 mg tablet Take 1 tablet every day by oral route. active Not Available Not Available No t Available Cipro 500 mg tablet Take 1 tablet twice a day by oral route for 5 days 12/04 completed Not Available Not Available Not Available Synthroid 50 mcg tablet Take 1 tablet every day by oral route. active Not Available Not Available No t Available gabapenti n 300 mg capsule TAKE ONE CAPSULE BY MOUTH EVERY DAY AT BEDTIME 06/30 completed Not Available Not Available Not Available etodolac 400 mg tablet Take 1 tablet twice a day by oral route. active Not Available Not Available No t Available montel[address] st 10 mg tablet Take 1 tablet every day by oral route. 07/30 completed Not Available Not Available Not Available Aspir-81 mg tablet,de layed release Take 1 tablet every day by oral route. 10/13 completed Not Available Not Available Not Available methylpre dnisolone 4 mg tablets in a dose pack TAKE 6 TABLETS ON DAY 1 DIRECTED ON PACKAGE AND DECREASE BY 1 TAB EACH DAY FOR A TOTAL OF 6 DAYS active Not Available Not Available No t Available cefdinir 300 mg capsule Take 1 capsule twice a day by oral route for 7 days. active Not Available Not Available No t Available dicyclomi ne 10 mg capsule Take 1 capsule 3 times a day by oral route for 5 days. 01/04 completed Not Available Not Available Not Available diazepam 5 mg tablet TAKE 1 TABLET BY MOUTH EVERY 8 HOURS NEEDED FOR SPASMS 06/30 completed Not Available Not Available Not Available Ventolin HFA 90 mcg/actua tion aerosol inhaler Inhale 2 puffs every 4 hours by inhalati on route. 07/30 completed Not Available Not Available Not Available neomycin 3.5 mg/g-poly myxin B 10,000 unit/g-de xameth 0.1 % eye oint active Not Available Not Available Not Available paroxetin e ER 12.5 mg tablet,ex tended release 24 hr Take 1 tablet every day by oral route. active Not Available Not Available No t Available Zetia 10 mg tablet take 1 po qd active Not Available Not Available No t Available cyclobenz aprine 5 mg tablet Take 1 tablet 3 times a day by oral route as needed. active Not Available Not Available No t Available nitrofura ntoin monohydra te/macroc rystals 100 mg capsule TAKE 1 CAPSULE BY MOUTH TWICE A DAY FOR 5 DAYS active Not Available Not Available No t Available lidocaine (PF) 10 mg/mL (1 %) injection solution In office injectio n administ ered by the provider 06/30 completed [facility]: [id number] 03-02 Not Available Not Available Not Available Symbicort 160 mcg-4.5 mcg/actua tion HFA aerosol inhaler Inhale 2 puffs twice a day by inhalati on route. active Not Available Not Available No t Available Symbicort 80 mcg-4.5 mcg/actua tion HFA aerosol inhaler active Not Available Not Available Not Available Suprep Bowel Prep Kit 17.5 gram-3.13 gram-1.6 gram oral solution PLEASE SEE ATTACHED FOR DETAILED DIRECTIO NS 11/23 completed Not Available Not Available Not Available Xarelto 10 mg tablet active Not Available Not Available Not Available Accu-Chek Patricia Plus test strips USE TO TEST BLOOD SUGARS ONCE DAILY DIRECTED active Not Available Not Available No t Available OptiChamb er Pooja [facility] with Large Mask USE WITH INHALER DIRECTED 07/30 completed Not Available Not Available Not Available Accu-Chek Patricia Plus Meter USE DIRECTED . 03/02 completed Not Available Not Available Not Available Farxiga 5 mg tablet TAKE 1 TABLET BY MOUTH EVERY DAY 06/30 completed Pt states she was told to stop this by Dr Palomares. Not Available Not Available Not Available Trulicity 0.75 mg/0.5 mL subcutane ous pen injector inject 0.75mg weekly active Not Available Not Available No t Available Flonase Allergy Relief 50 mcg/actua tion nasal spray,seng pension [place] 1 spray every day by intranas al route. 07/30 completed Not Available Not Available Not Available Fluvirin 1102-6867 45 mcg (15 mcg x 3)/0.5 mL intramusc ular suspensio n ADM 0.5ML IM UTD 09/20 completed Not Available Not Available Not Available Restasis MultiDose 0.05 % eye drops active Not Available Not Available No t Available Fluvirin 1122-2170 45 mcg (15 mcg x 3)/0.5 mL intramusc ular suspensio n ADM 0.5ML IM UTD 07/30 completed Not Available Not Available Not Available Ozempic 0.25 mg or 0.5 mg (2 mg/1.5 mL) subcutane ous pen injector inject 0.25mg weekly then go to 0.5mg weekly 08/23 completed pt unable to afford this medicati on Dr Palomares changed to trulicit y Not Available Not Available Not Available Fluzone High-Dose 2389-6327 (PF) 180 mcg/0.5 mL intramusc ular syringe ADM 0.5ML IM UTD 06/10 completed Not Available Not Available Not Available Fluzone High-Dose (PF) 180 mcg/0.5 mL intramusc ular syringe ADM 0.5ML IM UTD 10/27 completed Not Available Not Available Not Available Fluzone High-Dose Quad (PF) 240 mcg/0.7 mL IM syringe ADM 0.7ML IM UTD 03/30 completed Not Available Not Available Not Available Vitals Date Recorded Body mass index (BMI) Body height Heart rate Body temperature Body weight Systolic blood pressure Diastolic blood pressure Provider Name and Address Organization Details Last Updated DateTime 2 31.5 kg/m2 160.02 cm 84 /min 97.6 [degF] 69012.4 4 g 124 mm[Hg] 70 mm[Hg] Not Available [facility] 3 04:44:38 Date Recorded Body height Body mass index (BMI) Body weight Body temperature Heart rate Systolic blood pressure Diastolic blood pressure Provider Name and Address Organization Details Last Updated DateTime 3 160.02 cm 31.5 kg/m2 71767.4 4 g 97.6 [degF] 88 /min 124 mm[Hg] 82 mm[Hg] DARLENE [employer] 3 14:23:34 Date Recorded Body mass index (BMI) Body height Heart rate Body temperature Body weight Systolic blood pressure Diastolic blood pressure Provider Name and Address Organization Details Last Updated DateTime 2 30.5 kg/m2 160.02 cm 104 /min 96.5 [degF] 32009.8 9 g 122 mm[Hg] 60 mm[Hg] Not Available [facility] 3 04:44:38 Date Recorded Body height Body mass index (BMI) Body weight Body temperature Heart rate Systolic blood pressure Diastolic blood pressure Provider Name and Address Organization Details Last Updated DateTime 3 160.02 cm 31.4 kg/m2 08674.8 5 g 97.6 [degF] 90 /min 126 mm[Hg] 82 mm[Hg] DARLENE Khan [facility] 3 12:01:30 Date Recorded Body mass index (BMI) Body height Heart rate Body temperature Body weight Systolic blood pressure Diastolic blood pressure Provider Name and Address Organization Details Last Updated DateTime 2 30.1 kg/m2 160.02 cm 85 /min 97.9 [degF] 62454.7 g 132 mm[Hg] 84 mm[Hg] Not Available [facility] 3 04:44:38 Social History Question Answer Notes LastModified by Organizat ion Details LastModified Time Tobacco Smoking Status Former Smoker quit in Not Available [facility] 11/14/2022 04:12:48 Do You Have An Advance Directive? Yes [id number] Information not available 11/14/2022 Are You Blind Or Do You Have Difficulty Seeing? No [id number] Information not available 11/14/2022 What Is Your Level Of Caffeine Consumption? Occasional [id number] Information not available 11/14/2022 How Much Tobacco Do You Chew? None [id number] Information not available 11/14/2022 In The 14 Days Before Symptom Onset, Have You Had Close Contact With A Laboratory-confi rmed COVID-19 While That Case Was Ill? No [id number] Information not available 11/14/2022 In The 14 Days Before Symptom Onset, Have You Had Close Contact With A Person Who Is Under Investigation For COVID-19 While That Person Was Ill? No [id number] Information not available 11/14/2022 Are You Deaf Or Do You Have Serious Difficulty Hearing? No [id number] Information not available 11/14/2022 What Type Of Diet Are You Following? REGULAR [id number] Information not available 11/14/2022 Which Illicit Or Recreational Drugs Have You Used? None [id number] Information not available 11/14/2022 Have There Been Any Changes To Your Family Or Social Situation? No [id number] Information not available 11/14/2022 What Is The Fluoride Status Of Your Home? Unknown [id number] Information not available 11/14/2022 Are There Any Guns Present In Your Home? No [id number] Information not available 11/14/2022 Do You Use Insect Repellent Routinely? No [id number] Information not available 11/14/2022 Where Do You Live? 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 Yes [id number] Information not available 11/14/2022 What Was The Date Of Your Most Recent Tobacco Screening? 04/25/2023 [email or web address] Information not available 04/25/2023 Do You Have Any Pets? No [id number] Information not available 11/14/2022 What Is Your Relationship Status? MIGRATION.68077 [id number] Information not available 11/14/2022 Do You Use Your Seat Belt Or Car Seat Routinely? Yes MIGRATION.68127 63673 Information not available 11/14/2022 Do You Have Smoke And Carbon Monoxide Detectors In Your Home? Yes MIGRATION.94244 06840 Information not available 11/14/2022 Are You Passively Exposed To Smoke? No MIGRATION.23411 38066 Information not available 11/14/2022 Are There Any Smokers In Your House? No MIGRATION.70781 06130 Information not available 11/14/2022 How Much Tobacco Do You Smoke? No MIGRATION.01662 60948 Information not available 11/14/2022 What Types Of Sporting Activities Do You Participate In? None MIGRATION.17724 57292 Information not available 11/14/2022 Do You Use Sunscreen Routinely? No MIGRATION.83924 47896 Information not available 11/14/2022 Has Tobacco Cessation Counseling Been Provided? No MIGRATION.93656 38199 Information not available 11/14/2022 Have You Recently Traveled Abroad? No MIGRATION.53462 02452 Information not available 11/14/2022 Do You Have Difficulty Walking Or Climbing Stairs? No MIGRATION.48028 05206 Information not available 11/14/2022 Do You Have Any Dietary Restrictions? No MIGRATION.50636 53623 Information not available 11/14/2022 Sex: Female Functional Status Question Answer Note LastModified by Organizat ion Details LastModified Time Do you use any illicit or recreational drugs? No MIGRATION.572047 5460 Information not available 11/14/2022 Do you or have you ever used any other forms of tobacco or nicotine? No MIGRATION.328512 7762 Information not available 11/14/2022 What is your level of alcohol consumption? None MIGRATION.934012 0830 Information not available 11/14/2022 Do you or have you ever used smokeless tobacco? Never used smokeless tobacco MIGRATION.499548 4740 Information not available 11/14/2022 Do you have transportation difficulties? No MIGRATION.959586 6531 Information not available 11/14/2022 Are you able to walk? YESWOREST MIGRATION.429722 1219 Information not available 11/14/2022 Do you have difficulty doing errands alone? No MIGRATION.182254 2061 Information not available 11/14/2022 Are you able to care for yourself? Yes MIGRATION.542670 7383 Information not available 11/14/2022 What is your occupation? retired MIGRATION.266022 3289 Information not available 11/14/2022 Do you have difficulty dressing or bathing? No MIGRATION.783282 2461 Information not available 11/14/2022 Do you or have you ever used e-cigarettes or vape? Never used electronic cigarettes MIGRATION.636802 0592 Information not available 11/14/2022 What is your exercise level? Occasional MIGRATION.243177 9282 Information not available 11/14/2022 Mental Status Question Answer Note LastModified by Organizat ion Details LastModified Time Do you have difficulty concentrating, remembering or making decisions? No MIGRATION.[id number] 6 Information not available 11/14/2022 Family History Relationship Description Onset Age of this Age Resolved Age Notes LastModified by Organization Details LastModified Time Mother Disorder of thyroid gland MIGRATION.002 [id number] Not available 11/14/2022 04:43:12 Father Cerebrovascu lar accident MIGRATION.534 [id number] Not available 11/14/2022 04:43:12 Brother Parkinson's disease 76 MIGRATION.377 [id number] Not available 11/14/2022 04:43:12 Brother Malignant neoplasm of eye MIGRATION.283 [id number] Not available 11/14/2022 04:43:13 Brother Transient cerebral ischemia 79 MIGRATION.289 [id number] Not available 11/14/2022 04:43:13 Brother Chronic obstructive pulmonary disease 80 MIGRATION.407 [id number] Not available 11/14/2022 04:43:13 Brother Transient cerebral ischemia MIGRATION.364 [id number] Not available 11/14/2022 04:43:13 Medical History Condition Response BLINDNESS N NERVE DISEASE N RHEUMATIC FEVER N BLADDER PROBLEMS N KIDNEY STONES N MRSA N OTHER # 1 N POLIO N LUNG DISEASE/DISORDER Y RADIATION / CHEMOTHERAPY N COPD N Other # 2 N BLOOD DISEASES N EAR OR HEARING PROBLEMS N MUMPS N DEPRESSION (INCLUDING POST ) Y BOWEL PROBLEMS N STROKE/TIA N ULCERS N BENIGN PROSTATIC HYPERPLASIA N MEASLES N MYOCARDIAL INFARCTION N OBESITY N GERD/NAUSEA N ANEURYSM N URINARY/BLADDER/KIDNEY PROBLEMS N CORONARY ARTERY DISEASE (CAD) N ADDICTION CONCERNS N ENDOMETRIOSIS N Impotence N USE OF BLOOD THINNERS N SKIN PROBLEMS N GASTROINTESTINAL DISORDER N PERIPHERAL VASCULAR DISEASE N MUSCLE,JOINT OR BONE PROBLEMS N GASTROINTESTINAL BLEEDING N BLOOD CLOTS N ASTHMA Y CATARACTS N ERECTILE DYSFUNCTION N VARICOSITIES N GI PROBLEMS N Low Testosterone N INFERTILITY N AIDS/HIV N CHEMOTHERAPY / RADIATION N LIVER DISEASE Y MALE HYPOGONADISM N HYPERTENSION N Deficiency N TOURETTE'S N ANXIETY DISORDER Y BLOOD TRANSFUSION N ANEMIA/BLOOD DISORDER N CHRONIC EAR INFECTIONS N BRONCHITIS N TUBERCULOSIS N GLAUCOMA N FOOT PROBLEM N DIVERTICULITIS N SLEEP APNEA N CHICKENPOX N INFECTIOUS DISEASE N HEART ARRHYTHMIA N PROSTATE N INSOMNIA N HIGH CHOLESTEROL / HYPERLIPIDEMIA Y HYPERTHYROIDISM N EYE PROBLEMS N EDEMA N CHRONIC PAIN SYNDROME N HYPOTHYROIDISM Y CAROTID BLOCKAGE N CONSTIPATION N BACK / NECK PROBLEMS Y ATHEROSCLEROSIS N BREAST PROBLEMS N DIALYSIS N ECZEMA N OSTEOPOROSIS N ARTHRITIS N APPENDICITIS N DIABETES, TYPE Y BAD TEETH N ENT N HEARTBURN / REFLUX N AUTISM SPECTRUM DISORDER (ASD) N HEPATITIS / LIVER DISEASE N GOUT N SLEEP DISORDER N ALZHEIMER'S DISEASE N Brain Problems N HERPES Y DEMENTIA N HEADACHES/MIGRAINES N SEIZURES/EPILEPSY N VASCULAR DISEASE N PACEMAKER N Blood Disorder N DIZZINESS N HEART DISEASE/HEART PROBLEMS N KIDNEY DISEASE N MULTIPLE SCLEROSIS N CARDIAC ARRHYTHMIA N CANCER: SPECIFY N ATRIAL FIBRILLATION N Gall Stones N PULMONARY EMBOLISM N AUTOIMMUNE DISEASE N Gynecological History Statement/Question Response Abnormal Pap Y Date of Last Mammogram 03/29/2021 Current Control Method Menopause Date of Last Colonoscopy 04/18/2010 Most Recent Bone Density 12/19/2018 Obstetrics History GPAL:G 2 P 0 0 0 2 Type Value Living 2 Total 2 Immunizations Vaccine Type Date Status Note Provider Nam e and Address Organization Details Recorded Time COVID-19, mRNA, LNP-S, PF, 30 mcg/0.3 mL dose 1 completed Not Available [facility] 04/26/2023 08:15:23 Influenza, high-dose, trivalent, PF 0 completed Not Available [facility] 04/26/2023 08:15:23 Influenza, high-dose, trivalent, PF 9 completed Not Available [facility] 04/26/2023 08:15:23 influenza, unspecified formulation 8 completed Not Available [facility] 04/26/2023 08:15:23 Influenza, split virus, quadrivalent, preservative 7 completed Not Available [facility] 04/26/2023 08:15:23 Influenza, split virus, quadrivalent, preservative 6 completed Not Available [facility] 04/26/2023 08:15:23 Influenza, high-dose, trivalent, PF 2 completed Not Available [facility] 04/26/2023 08:15:23 COVID-19, mRNA, LNP-S, PF, 30 mcg/0.3 mL dose 1 completed Not Available [facility] 04/26/2023 08:15:23 Past Encounters Encounter ID Performer Location Encounter Start Date Encounter Closed Date Diagnosis/Indication Diagnosis SNOMED-CT Code Diagnosis ICD10 Code Diagnosis Note [id number] Edna Palomares MD [facility] Internal Med [place] [address] [facility] [address] , [place] [address] 03/30/2021 00:00:00 03/30/2021 22:46:42 [id number] Edna Palomares MD [facility] Internal Med [place] [address] [facility] [address] [place] [address] 04/07/2021 00:00:00 04/09/2021 21:43:05 [id number] [facility] [place] [address] [facility] [address] [place] [address] 07/19/2021 00:00:00 07/19/2021 13:13:22 [id number] Edna Palomares MD [facility] Internal Med [place] [address] [facility] [address] , [place] [address] 11/23/2021 00:00:00 12/17/2021 11:19:11 [id number] Edna Palomares MD [facility] Internal Med [place] [address] [place] [address] [place] [address] 03/29/2022 00:00:00 03/31/2022 17:22:48 [id number] Edna Palomares MD [facility] Internal Med [place] [address] [place] [address] y , [place] [address] 07/31/2022 00:00:00 08/11/2022 15:11:13 [id number] Edna Palomares MD [facility] Internal Med [place] [address] [facility] [place] [address] 12/04/2022 14:10:34 12/04/2022 15:50:24 Diabetes mellitus 46771547 E11.9 Hyperlipidemia 78711968 E78.5 Hypothyroidism 65240610 E03.9 Flank pain 583114235 R10 .9 Anxiety 21666112 F41.9 [id number] Edna Palomares MD [facility] Internal Med [place] [address] [facility] [place] [address] 04/25/2023 11:53:28 04/25/2023 12:56:34 Diabetes mellitus 56513140 E11.9 Hyperlipidemia 20778319 E78.5 Long-term drug therapy 440090604 Z79.899 Osteoarthritis 428868246 M19.90 Anxiety 76039417 F41.9 Health Concerns Section Related Observation LastModified by Organization Detai ls LastModified Time None Recorded Concern Status LastModified by Organization Details LastModified Time None Recorded Advance Directives Directive Y: Payers Encounter Date Sequence Insurance Name Policy Number Policy Garcia Covered Member ID Garcia Member ID Guarantor Name 12/04/2022 1 [place] Latoya Galvan [id number] Nancy Galvan 12/04/2022 2 [employer] (MEDICARE SUPPLEMENT) Latoya Galvan [id number] Nancy Burden Cole 04/25/2023 1 [place] Latoya Galvan [id number] Nancy Galvan 04/25/2023 2 [employer] (MEDICARE SUPPLEMENT) Latoya Galvan [id number] Nancy Galvan Notes Date Note Type Note Provider Name and Address Organization Details Recorded Time 12/04/2022 text/html Diabetes no polyphagia no polydipsia. Hypothyroid no heat or cold intolerance. 3. Flank pain on the left couple weeks no trauma genitourinary seems to be fine she has had history of back pain she is not sure if this is new or just a different variant of her back pain. Anxiety high dealing with that has severe dementia. Edna Palomares MD [address], [place], [address], [employer] [facility] [employer] [facility] 12/04/2022 22:28:56 04/25/2023 text/html Diabetes no polyphagia no polydipsia. Hypothyroid no heat or cold intolerance. Anxiety high dealing with that has severe dementia. About the same as far as anxiety Edna Paolmares MD [address], [place], [address], [employer] [facility] 07/14/2023 18:06:15 OBGyn Episode No OBEpisode recorded.
== END 2025-02-16 08:28 | disposition home or self-care (01) ==
PROVIDERS: PCP Internal Medicine; Visit Provider Internal Medicine
DX: Z12.31 Encounter for screening mammogram for malignant neoplasm of breast (principal)
CPT/HCPCS: 77063; 77067

== ENCOUNTER 2025-03-12 10:19 | Outpatient (CLI) | payer MEDICARE, SELFPAY ==
[2025-03-12 11:07] LABS: Basophils Absolute Auto 0.1 K/mm3 (0.0-0.1); Basophils Percent Auto 1.1 % (0.2-1.2); Eosinophils Absolute Auto 0.2 K/mm3 (0-0.3); Eosinophils Percent Auto 4.2 % (0-4.4); Hematocrit 42.8 % (37.0-47.0); Hemoglobin 13.9 g/dL (12.0-15.0); Immature Granulocyte Absolute 0.01 K/mm3 (0.00-0.031); Immature Granulocyte Percent A 0.2 % (0-0.5); Lymphocytes Absolute Auto 0.88 K/mm3 (0.9-3.2); Lymphocytes Percent Auto 15.9 % (18.3-44.2); Mean Corpuscular HGB Conc 32.5 g/dl (32-36); Mean Corpuscular Hemoglobin 30.9 pg (26-34); Mean Corpuscular Volume 95.1 fl (80-100); Mean Platelet Volume 11.2 fl (7.4-10.4); Monocytes Absolute Auto 0.5 K/mm3 (0.1-0.6); Monocytes Percent Auto 8.5 % (2.6-8.5); Neutrophils Absolute Auto 3.9 K/mm3 (1.3-6.7); Neutrophils Percent Auto 70.1 % (45.5-73.1); Platelet Count Result 202 k/mm3 (150-375); Red Cell Distribution Width 12.9 % (11.5-14.5); White Blood Count 5.5 K/mm3 (4.5-10.0)
[2025-03-12 11:19] LABS: Alanine Aminotransferase 24 U/L (6-35); Albumin Level 4.1 g/dL (3.5-5.1); Alkaline Phosphatase 91 U/L (38-126); Anion Gap 11 mmol/L (4-12); Aspartate Amino Transferase 34 U/L (14-36); Bilirubin,Total 0.4 mg/dL (0.2-1.3); Blood Urea Nitrogen 9 mg/dL (7-17); Calcium 9.3 mg/dL (8.4-10.2); Carbon Dioxide 23 mmol/L (22-30); Chloride 102 mmol/L (98-107); Cholesterol 142 mg/dL (0-200); Estimated Glomerular Filt Rate > 60; Glucose 250 mg/dL (65-110); HDL Direct 50 mg/dL; Potassium 4.1 mmol/L (3.4-5.0); Sodium 136 mmol/L (137-145); Total Protein 7.4 g/dL (6.3-8.2); Triglycerides 277 mg/dL (<150)
[2025-03-12 12:04] LABS: LDL Cholesterol Direct < 30 mg/dL
[2025-03-12 12:32] LABS: Free T3 3.05 pg/mL (2.45-5.93); Free T4 Free Thyroxine 1.43 ng/dL (0.78-2.19)
[2025-03-12 12:44] LABS: Hemoglobin A1C. 9.3 % (<5.7)
== END 2025-03-12 10:20 | disposition home or self-care (01) ==
PROVIDERS: PCP Internal Medicine; Visit Provider Internal Medicine
DX: E11.9 Type 2 diabetes mellitus without complications (principal); I10 Essential (primary) hypertension
CPT/HCPCS: 36415; 80053; 80061; 83036; 84439; 84443; 84481; 85025

== ENCOUNTER 2025-07-14 15:57 | Outpatient (CLI) | payer MEDICARE, SELFPAY ==
--- OUTSIDE RECORDS SUMMARY | 2009-08-22 04:45 | XMS_ITS | Continuity of Care Document ---
Author Organization [facility] Address [address] [facility] [address] [place] [address] Phone Care Team Providers Care Mechanic/Welder Name Role Phone Nguyễn Horne Unavailable Unavailable Procedures Procedure Date Office/outpatient Visit, Est Eye Exam & Treatment Refraction Advance Directives Directive Yes / No Effective Date File Name No Information Encounters Encounter Description Practice Location Reason(s) For Visit Diagnoses Date Provider Providers Copied on Encounter Office/outpat ient Visit, Est [facility], [address] [place] [address] [address], [place], [place], [id number], tel:[phone] [facility] No Information [address]. [address] , [address], [place], [place], [facility], . tel:[phone] [facility], [address] [place] [address] [address], [place], [place], [address], tel:[phone] [facility] No Information [address]. [address], [place], [place], [facility], [place]. tel:[phone] Family History Family Member Type Diagnosis Age At Onset No Information Payers Payer name Insurance type Covered constitution party ID Authoriza tion(s) No Information Social [...]
--- OUTSIDE RECORDS SUMMARY | 2020-08-08 06:00 | XMS_ITS | Continuity of Care Document ---
Author Organization [facility] Address [address] [place] [address] Phone Care Team Providers Care Engagement Specialist Name Role Phone Steffen Milan MD Unavailable [...] Encounter OFFICE/OUTPA TIENT VISIT NEW [facility], [address], [place], [address], [place] tel:[phone] [facility] Body mass index [BMI] 35.0-35.9, adultSpinal stenosis, lumbar region without neurogenic claudicationPos tlaminectomy syndrome, not elsewhere classified 0 Bjorn Bourne . [address], [place], [place], [id number] . tel: [phone] Referring Provider: Familia Carpenter, [address] [facility] [address], [place], [address]. tel:[phone] OFFICE/OUTPA TIENT VISIT [facility], [address] [place] [address] [address], [place], [address], [place] tel:[phone] [facility] Follow Up of LEFT KNEE (chief complaint) Medial meniscus tearSciatica 5 Gina Lima. [address] [place], [place], [address] . tel: [phone] OFFICE/OUTPA TIENT VISIT [facility], [address] [facility] [address], [place], [address], [place] tel:[phone] [facility] LT KNEE PAIN (chief complaint) Medial meniscus tearPrimary localized osteoarthrosis, lower leg 5 Bill Ko. [address] [facility] [address], [place], [place], [address] . tel: [phone] OFFICE/OUTPA TIENT VISIT [facility], [address] [place] [address] [address], [place], [address], [place] tel:[phone] [facility] History of total knee replacement 3 Gina Lima. [address] [place], [place], [address] . tel: [phone] Referring Provider: Jas Burden, [address] [facility] [address], [place], [address] . tel:[phone] Family History Family Member Type Diagnosis Age At Onset Brother Problem (finding) Alive and well Brother Problem (finding) Thyroid disorder Brother Problem (finding) hypertension Payers Payer name Insurance type Covered alliance party ID Authoriza tion(s) Medicare E2 OT [id number] [employer] OT [id number] Social History Type Description Quantity Date Captured [...]
[2025-07-14 17:27] LABS: Hemoglobin A1C 9.1 % (<5.7)
[2025-07-14 17:33] LABS: Hematocrit 49.0 % (37.0-47.0); Hemoglobin 16.2 g/dL (12.0-15.0); Immature Granulocyte Percent A 0.4 % (0-0.5); Lymphocytes Absolute Auto 1.54 K/mm3 (0.9-3.2); Mean Corpuscular HGB Conc 33.1 g/dl (32-36); Mean Corpuscular Hemoglobin 31.8 pg (26-34); Mean Corpuscular Volume 96.1 fl (80-100); Nucleated Red Blood Cells Absolute Auto 0.000 K/mm3 (0.0-0.012); Nucleated Red Blood Cells Perc 0.0 % (0.0-0.2); Platelet Count Result 235 k/mm3 (150-375); Red Blood Count 5.10 M/mm3 (4.2-5.4); White Blood Count 8.0 K/mm3 (4.5-10.0)
--- OUTSIDE RECORDS SUMMARY | 2025-07-14 17:49 | XMS_ITS | Data Portability ---
Author Organization [place] [facility], Main Office Address [address] [place] [address] Care Team Providers Care Account Strategist Name Role Phone EDNA PALOMARES Primary Care Provider EDNA PALOMARES Referring Provider Assessment Encounter Date Assessment Date Assessment LastModified by Organization Details LastModified Time 12/04/2022 12/04/2022 Blood work has been ordered as well as urinalysis ultrasound left kidney colonoscopy follow-up in 4 months dx in A?P discussed Not available 12/04/2022 22:28:40 04/25/2023 04/25/2023 Will continue with current therapy evaluate her medical problems with blood work see me back in 4 months target for blood pressure blood lipid and A1c discussed [id number] Not available 07/14/2023 18:05:59 Plan of Treatment [...] (PROC) 2022 023 CORNELIUS Tomy Wolff MD, [address], [place] [address], [address], 3 13:59:18 Surgeries None recorded. Imaging None recorded. Medication Orders Seroquel 25 mg tablet 2022 023 cyl [id number], [address] [place], [address], 3 10:39:07 Patient TargetsNo targets recorded. Patient [...] 2016, 39(Stacy ppl.1 ):s13 -s22 Not Available [facility] (Lab) [address] [place], [address], 03/29/2022 20:06:21 03/29/20 22 03/29/2022 LIPID PANEL cholesterol 194 mg/dL 140-19 9 NIH JESUS NSUS RECOM MENDA TION FOR DALIA STERO L: ADULT CHILD LOW RISK: <200 <170 BORDE RLINE : <200- 239 ----- HIGH RISK: >240 >200 Not Available [facility] (Lab) [address] [place], [address], 03/29/2022 19:03:20 03/29/20 22 03/29/2022 LIPID PANEL triglyceride s 385 mg/dL 0-150 high NIH JESUS NSUS REPOR T RECOM MENDA TION FOR TRIGL YCERI XIOMARA: ADULT CHILD LOW RISK: <150 ----- BODER LINE: 150-1 99 ----- HIGH RISK: >200 ----- Not Available [facility] (Lab) [address] [place], [address], 03/29/2022 19:03:20 03/29/20 22 03/29/2022 LIPID PANEL HDL cholesterol 59 mg/dL 40- Not Available [facility] (Lab) [address] [place], [address], 03/29/2022 19:03:20 03/29/20 22 03/29/2022 LIPID PANEL [...] WILL NOT BE REPOR ADAM. Not Available [facility] (Lab) [address] [place], [address], 03/29/2022 19:03:20 03/29/20 22 03/29/2022 COMPR EHENS JOSE FRANCISCO METAB OLIC PANEL sodium 134 mmol/ L 137-14 5 low Not Available [facility] (Lab) [address] [place], [address], 03/29/2022 19:03:18 03/29/20 22 03/29/2022 COMPR EHENS JOSE FRANCISCO METAB OLIC PANEL potassium 4.5 mmol/ L 3.5-5. 1 Not Available [facility] (Lab) [address] [place], [address], 03/29/2022 19:03:18 03/29/20 22 03/29/2022 COMPR EHENS JOSE FRANCISCO METAB OLIC PANEL chloride 100 mmol/ L 98-107 Not Available [facility] (Lab) [address] [place], [address], 03/29/2022 19:03:18 03/29/20 22 03/29/2022 COMPR EHENS JOSE FRANCISCO METAB OLIC PANEL carbon dioxide 23 mmol/ L 22-30 Not Available [facility] (Lab) [address] [place], [address], 03/29/2022 19:03:18 03/29/20 22 03/29/2022 COMPR EHENS JOSE FRANCISCO METAB OLIC PANEL anion gap 15.5 mmol/ L 14-22 Not Available [facility] (Lab) [address] [place], [address], 03/29/2022 19:03:18 03/29/20 22 03/29/2022 COMPR EHENS JOSE FRANCISCO METAB OLIC PANEL glucose 303 mg/dL 70-99 high Not Available [facility] (Lab) [address] [place], [address], 03/29/2022 19:03:18 03/29/20 22 03/29/2022 COMPR EHENS JOSE FRANCISCO METAB OLIC PANEL BUN 13 mg/dL 8-19 Not Available [facility] (Lab) [address] [place], [address], 03/29/2022 19:03:18 03/29/2003/29/2022 COMPR EHENS JOSE FRANCISCO METAB OLIC PANEL creatinine 0.71 mg/dL 0.66-1 .25 Not Available [facility] (Lab) [address] [place], [address], 03/29/2022 19:03:18 03/29/20 22 03/29/2022 COMPR EHENS JOSE FRANCISCO METAB OLIC PANEL GFR >60 Refer ence Range : Mobile ge GFR Healt hy Adult : >60 [...] or ethni c subgr oups, such as [employer] nics. Outsi de the valid ated bill [...] calcu lator is avail able on the [facility] websi te: https ://guanako moon.tao szymanski/pr ofess ional s/kdo qi/gf r_cal culat or Not Available [facility] (Lab) [address] [place], [address], 03/29/2022 19:03:18 03/29/20 22 03/29/2022 COMPR EHENS JOSE FRANCISCO METAB OLIC PANEL alkaline phosphatase 128 U/L 38-126 high Not Available [facility] (Lab) [address] [place] [place], [address], 03/29/2022 19:03:18 03/29/20 22 03/29/2022 COMPR EHENS JOSE FRANCISCO METAB OLIC PANEL alanine aminotransfe rase 52 U/L 0-35 high Not Available [facility] (Lab) [address] [place] [place], [address], 03/29/2022 19:03:18 03/29/20 22 03/29/2022 COMPR EHENS JOSE FRANCISCO METAB OLIC PANEL aspartate aminotransfe rase 54 U/L 15-37 high Not Available [facility] (Lab) [address] [place], [address], 03/29/2022 19:03:18 03/29/20 22 03/29/2022 COMPR EHENS JOSE FRANCISCO METAB OLIC PANEL bilirubin, total 0.80 mg/dL 0.20-1 .30 Not Available [facility] (Lab) [address] [place], [address], 03/29/2022 19:03:18 03/29/20 22 03/29/2022 COMPR EHENS JOSE FRANCISCO METAB OLIC PANEL calcium 9.8 mg/dL 8.4-10 .2 Not Available [facility] (Lab) [address] [place], [address], 03/29/2022 19:03:18 03/29/20 22 03/29/2022 COMPR EHENS JOSE FRANCISCO METAB OLIC PANEL total protein 7.4 g/dL 6.3-8. 2 Not Available [facility] (Lab) [address] [place], [address], 03/29/2022 19:03:18 03/29/20 22 03/29/2022 COMPR EHENS JOSE FRANCISCO METAB OLIC PANEL albumin 4.5 g/dL 3.0-4. 4 high Not Available [facility] (Lab) [address] [place], [address], 03/29/2022 19:03:18 03/29/20 22 03/29/2022 COMPR EHENS JOSE FRANCISCO METAB OLIC PANEL globulin 2.9 g/dL 2.6-4. 2 Not Available [facility] (Lab) [address] [place], [address], 03/29/2022 19:03:18 03/29/20 22 03/29/2022 COMPR EHENS JOSE FRANCISCO METAB OLIC PANEL A/G ratio 1.6 ratio 1.0-2. 0 Not Available [facility] (Lab) [address] [place], [address], 03/29/2022 19:03:18 07/31/20 22 08/03/2022 TSH thyroid-stim ulating hormone 6.330 uIU/m L 0.465- 4.680 high Not Available [facility] (Lab) [address] [place], [address], 08/03/2022 17:35:59 07/31/20 22 08/03/2022 T4 FREE free T4 1.45 NG/dL 0.78-2 .19 Not Available [facility] (Lab) [address] [place], [address], 08/03/2022 17:10:58 07/31/20 22 08/03/2022 T3 FREE free T3 2.4 pg/mL 2.77-5 .27 low Not Available [facility] (Lab) [address] [place], [address], 08/03/2022 17:10:56 07/31/20 22 07/31/2022 HEMOG LOBIN A1C HA1C 10.7 % 4.0-6. 0 high Diabe eugene Scree rut Crite liza: <5.7% Consi stent with absen ce of diabe eugene 5.7-6 .4% Consi stent with incre ased risk for diabe eugene (pred iabet es) >OR=6 .5% Consi stent with diabe eugene REFER ENCE: Diabe eugene Care 2016, 39(Stacy ppl.1 ):s13 -s22 Not Available [facility] (Lab) [address] [place], [address], 07/31/2022 22:07:56 07/31/20 22 07/31/2022 LIPID PANEL cholesterol 173 mg/dL 140-19 9 NIH JESUS NSUS RECOM MENDA TION FOR DALIA STERO L: ADULT CHILD LOW RISK: <200 <170 BORDE RLINE : <200- 239 ----- HIGH RISK: >240 >200 Not Available [facility] (Lab) [address] [place], [address], 07/31/2022 19:13:50 07/31/20 22 07/31/2022 LIPID PANEL triglyceride s 286 mg/dL 0-150 high NIH JESUS NSUS REPOR T RECOM MENDA TION FOR TRIGL YCERI XIOMARA: ADULT CHILD LOW RISK: <150 ----- BODER LINE: 150-1 99 ----- HIGH RISK: >200 ----- Not Available [facility] (Lab) [address] [place], [address], 07/31/2022 19:13:50 07/31/20 22 07/31/2022 LIPID PANEL HDL cholesterol 61 mg/dL 40- Not Available [facility] (Lab) [address] [place], [address], 07/31/2022 19:13:50 07/31/20 22 07/31/2022 LIPID PANEL [...] WILL NOT BE REPOR ADAM. Not Available [facility] (Lab) [address] [place], [address], 07/31/2022 19:13:50 07/31/20 22 07/31/2022 COMPR EHENS JOSE FRANCISCO METAB OLIC PANEL sodium 136 mmol/ L 137-14 5 low Not Available [facility] (Lab) [address] [place], [address], 07/31/2022 19:13:41 07/31/20 22 07/31/2022 COMPR EHENS JOSE FRANCISCO METAB OLIC PANEL potassium 4.7 mmol/ L 3.5-5. 1 Not Available [facility] (Lab) [address] [place], [address], 07/31/2022 19:13:41 07/31/20 22 07/31/2022 COMPR EHENS JOSE FRANCISCO METAB OLIC PANEL chloride 100 mmol/ L 98-107 Not Available [facility] (Lab) [address] [place], [address], 07/31/2022 19:13:41 07/31/20 22 07/31/2022 COMPR EHENS JOSE FRANCISCO METAB OLIC PANEL carbon dioxide 26 mmol/ L 22-30 Not Available [facility] (Lab) [address] [place], [address], 07/31/2022 19:13:41 07/31/20 22 07/31/2022 COMPR EHENS JOSE FRANCISCO METAB OLIC PANEL anion gap 14.7 mmol/ L 14-22 Not Available [facility] (Lab) [address] [place], [address], 07/31/2022 19:13:41 07/31/20 22 07/31/2022 COMPR EHENS JOSE FRANCISCO METAB OLIC PANEL glucose 246 mg/dL 70-99 high Not Available [facility] (Lab) [address] [place], [address], 07/31/2022 19:13:41 07/31/20 22 07/31/2022 COMPR EHENS JOSE FRANCISCO METAB OLIC PANEL BUN 14 mg/dL 8-19 Not Available [facility] (Lab) [address] [place], [address], 07/31/2022 19:13:41 07/31/20 22 07/31/2022 COMPR EHENS JOSE FRANCISCO METAB OLIC PANEL creatinine 0.70 mg/dL 0.66-1 .25 Not Available [facility] (Lab) [address] [place], [address], 07/31/2022 19:13:41 07/31/20 22 07/31/2022 COMPR EHENS JOSE FRANCISCO METAB OLIC PANEL GFR >60 Refer ence Range : Mobile ge GFR Healt hy Adult : >60 [...] or ethni c subgr oups, such as [facility] nics. Outsi de the valid ated bill [...] calcu lator is avail able on the [facility] websi te: https :[email or web address] w.santosh moon.o rg/pr ofess ional s/kdo qi/gf r_cal culat or Not Available [facility] (Lab) [address] [place], [address], 07/31/2022 19:13:41 07/31/20 22 07/31/2022 COMPR EHENS JOSE FRANCISCO METAB OLIC PANEL alkaline phosphatase 133 U/L 38-126 high Not Available [facility] (Lab) [address] [place], [address], 07/31/2022 19:13:41 07/31/20 22 07/31/2022 COMPR EHENS JOSE FRANCISCO METAB OLIC PANEL alanine aminotransfe rase 45 U/L 0-35 high Not Available [facility] (Lab) [address] [place] [place], [address], 07/31/2022 19:13:41 07/31/20 22 07/31/2022 COMPR EHENS JOSE FRANCISCO METAB OLIC PANEL aspartate aminotransfe rase 59 U/L 15-37 high Not Available [facility] (Lab) [address] [place], [address], 07/31/2022 19:13:41 07/31/20 22 07/31/2022 COMPR EHENS JOSE FRANCISCO METAB OLIC PANEL bilirubin, total 0.80 mg/dL 0.20-1 .30 Not Available [facility] (Lab) [address] [place], [address], 07/31/2022 19:13:41 07/31/20 22 07/31/2022 COMPR EHENS JOSE FRANCISCO METAB OLIC PANEL calcium 10.6 mg/dL 8.4-10 .2 high Not Available [facility] (Lab) [address] [place], [address], 07/31/2022 19:13:41 07/31/20 22 07/31/2022 COMPR EHENS JOSE FRANCISCO METAB OLIC PANEL total protein 7.5 g/dL 6.3-8. 2 Not Available [facility] (Lab) [address] [place], [address], 07/31/2022 19:13:41 07/31/20 22 07/31/2022 COMPR EHENS JOSE FRANCISCO METAB OLIC PANEL albumin 4.6 g/dL 3.0-4. 4 high Not Available [facility] (Lab) [address] [place], [address], 07/31/2022 19:13:41 07/31/20 22 07/31/2022 COMPR EHENS JOSE FRANCISCO METAB OLIC PANEL globulin 2.9 g/dL 2.6-4. 2 Not Available [facility] (Lab) [address] [place] [place], [address], 07/31/2022 19:13:41 07/31/20 22 07/31/2022 COMPR EHENS JOSE FRANCISCO METAB OLIC PANEL A/G ratio 1.6 ratio 1.0-2. 0 Not Available [facility] (Lab) [address] [place], [address], 07/31/2022 19:13:41 12/05/19 23 12/04/2022 URINE MICRO SCOPI C EXAM/ IRIS white blood cells 0-8 /i??h pfi?? 0-8 Not Available [facility] (Lab) [address] [place], [address], 12/04/2022 18:55:17 12/05/19 23 12/04/2022 URINE MICRO SCOPI C EXAM/ IRIS red blood cells NONE /i??h pfi?? 0-4 Not Available [facility] (Lab) [address] [place], [address], 12/04/2022 18:55:17 12/05/19 23 12/04/2022 URINE MICRO SCOPI C EXAM/ IRIS bacteria FEW abnormal Not Available [facility] (Lab) [address] [place], [address], 12/04/2022 18:55:17 12/05/19 23 12/04/2022 URINE MICRO SCOPI C EXAM/ IRIS mucous FEW /i??l pfi?? abnormal Not Available [facility] (Lab) [address] [place], [address], 12/04/2022 18:55:17 12/05/19 23 12/04/2022 URINE MICRO SCOPI C EXAM/ IRIS squamous epithelial FEW /i??l pfi?? abnormal Not Available [facility] (Lab) [address] [place], [address], 12/04/2022 18:55:17 12/05/19 23 12/04/2022 URINE MICRO SCOPI C EXAM/ IRIS white blood cells 0-8 /i??h pfi?? 0-8 Not Available [facility] (Lab) [address] [place], [address], 12/04/2022 18:55:19 12/05/19 23 12/04/2022 URINE MICRO SCOPI C EXAM/ IRIS red blood cells NONE /i??h pfi?? 0-4 Not Available [facility] (Lab) [address] [place], [address], 12/04/2022 18:55:19 12/05/19 23 12/04/2022 URINE MICRO SCOPI C EXAM/ IRIS bacteria FEW abnormal Not Available [facility] (Lab) [address] [place], [address], 12/04/2022 18:55:19 12/05/19 23 12/04/2022 URINE MICRO SCOPI C EXAM/ IRIS mucous FEW /i??l pfi?? abnormal Not Available [facility] (Lab) [address] [place], [address], 12/04/2022 18:55:19 12/05/19 23 12/04/2022 URINE MICRO SCOPI C EXAM/ IRIS squamous epithelial FEW /i??l pfi?? abnormal Not Available [facility] (Lab) [address] [place], [address], 12/04/2022 18:55:19 12/05/19 23 12/04/2022 COMPR EHENS JOSE FRANCISCO METAB OLIC PANEL sodium 138 mmol/ L 137-14 5 Not Available [facility] (Lab) [address] [place], [address], 12/04/2022 21:22:04 12/05/19 23 12/04/2022 COMPR EHENS JOSE FRANCISCO METAB OLIC PANEL potassium 4.2 mmol/ L 3.5-5. 1 Not Available [facility] (Lab) [address] [place], [address], 12/04/2022 21:22:04 12/05/19 23 12/04/2022 COMPR EHENS JOSE FRANCISCO METAB OLIC PANEL chloride 101 mmol/ L 98-107 Not Available [facility] (Lab) [address] [place], [address], 12/04/2022 21:22:04 12/05/19 23 12/04/2022 COMPR EHENS JOSE FRANCISCO METAB OLIC PANEL carbon dioxide 28 mmol/ L 22-30 Not Available [facility] (Lab) [address] [place], [address], 12/04/2022 21:22:04 12/05/19 23 12/04/2022 COMPR EHENS JOSE FRANCISCO METAB OLIC PANEL anion gap 13.2 mmol/ L 14-22 low Not Available [facility] (Lab) [address] [place], [address], 12/04/2022 21:22:04 12/05/19 23 12/04/2022 COMPR EHENS JOSE FRANCISCO METAB OLIC PANEL glucose 117 mg/dL 70-99 high Not Available [facility] (Lab) [address] [place], [address], 12/04/2022 21:22:04 12/05/19 23 12/04/2022 COMPR EHENS JOSE FRANCISCO METAB OLIC PANEL BUN 17 mg/dL 8-19 Not Available [facility] (Lab) [address] [place], [address], 12/04/2022 21:22:04 12/05/19 23 12/04/2022 COMPR EHENS JOSE FRANCISCO METAB OLIC PANEL creatinine 0.73 mg/dL 0.66-1 .25 Not Available [facility] (Lab) [address] [place], [address], 12/04/2022 21:22:04 12/05/19 23 12/04/2022 COMPR EHENS JOSE FRANCISCO METAB OLIC PANEL GFR >60 Refer ence Range : Mobile ge GFR Healt hy Adult : >60 [...] or ethni c subgr oups, such as [facility] nics. Outsi de the valid ated bill [...] s/kdo qi/gf r_cal culat or Not Available [facility] (Lab) [address] [place], [address], 12/04/2022 21:22:04 12/05/19 23 12/04/2022 COMPR EHENS JOSE FRANCISCO METAB OLIC PANEL alkaline phosphatase 121 U/L 38-126 Not Available [facility] (Lab) [address] [place], [address], 12/04/2022 21:22:04 12/05/19 23 12/04/2022 COMPR EHENS JOSE FRANCISCO METAB OLIC PANEL alanine aminotransfe rase 58 U/L 0-35 high Not Available [facility] (Lab) [address] [place], [address], 12/04/2022 21:22:04 12/05/19 23 12/04/2022 COMPR EHENS JOSE FRANCISCO METAB OLIC PANEL aspartate aminotransfe rase 66 U/L 15-37 high Not Available [facility] (Lab) [address] [place], [address], 12/04/2022 21:22:04 12/05/19 23 12/04/2022 COMPR EHENS JOSE FRANCISCO METAB OLIC PANEL bilirubin, total 0.50 mg/dL 0.20-1 .30 Not Available [facility] (Lab) [address] [place], [address], 12/04/2022 21:22:04 12/05/19 23 12/04/2022 COMPR EHENS JOSE FRANCISCO METAB OLIC PANEL calcium 10.1 mg/dL 8.4-10 .2 Not Available [facility] (Lab) [address] [place], [address], 12/04/2022 21:22:04 12/05/19 23 12/04/2022 COMPR EHENS JOSE FRANCISCO METAB OLIC PANEL total protein 7.7 g/dL 6.3-8. 2 Not Available [facility] (Lab) [address] [place], [address], 12/04/2022 21:22:04 12/05/19 23 12/04/2022 COMPR EHENS JOSE FRANCISCO METAB OLIC PANEL albumin 4.7 g/dL 3.0-4. 4 high Not Available [facility] (Lab) [address] [place], [address], 12/04/2022 21:22:04 12/05/19 23 12/04/2022 COMPR EHENS JOSE FRANCISCO METAB OLIC PANEL globulin 3.0 g/dL 2.6-4. 2 Not Available [facility] (Lab) [address] [place], [address], 12/04/2022 21:22:04 12/05/19 23 12/04/2022 COMPR EHENS JOSE FRANCISCO METAB OLIC PANEL A/G ratio 1.6 ratio 1.0-2. 0 Not Available [facility] (Lab) [address] [place], [address], 12/04/2022 21:22:04 12/05/19 23 12/04/2022 LIPID PANEL cholesterol 167 mg/dL 140-19 9 NIH JESUS NSUS RECOM MENDA TION FOR DALIA STERO L: ADULT CHILD LOW RISK: <200 <170 BORDE RLINE : <200- 239 ----- HIGH RISK: >240 >200 Not Available [facility] (Lab) [address] [place], [address], 12/04/2022 21:22:09 12/05/19 23 12/04/2022 LIPID PANEL triglyceride s 256 mg/dL 0-150 high NIH JESUS NSUS REPOR T RECOM MENDA TION FOR TRIGL YCERI XIOMARA: ADULT CHILD LOW RISK: <150 ----- BODER LINE: 150-1 99 ----- HIGH RISK: >200 ----- Not Available [facility] (Lab) [address] [place], [address], 12/04/2022 21:22:09 12/05/19 23 12/04/2022 LIPID PANEL HDL cholesterol 71 mg/dL 40- Not Available [facility] (Lab) [address] [place], [address], 12/04/2022 21:22:09 12/05/19 23 12/04/2022 LIPID PANEL LDL cholesterol, calculated 45 mg/dL [...] WILL NOT BE REPOR ADAM. Not Available [facility] (Lab) [address] [place], [address], 12/04/2022 21:22:09 12/05/19 23 12/04/2022 T4 FREE free T4 1.55 NG/dL 0.78-2 .19 Not Available [facility] (Lab) [address] [place], [address], 12/04/2022 21:35:19 12/05/19 23 12/04/2022 T3 FREE free T3 3.2 pg/mL 2.77-5 .27 Not Available [facility] (Lab) [address] [place], [address], 12/04/2022 21:35:39 12/05/19 23 12/04/2022 TSH thyroid-stim ulating hormone 3.880 uIU/m L 0.465- 4.680 Not Available [facility] (Lab) [address] [place], [address], 12/04/2022 21:47:51 12/05/19 23 12/04/2022 HEMOG LOBIN A1C HA1C 9.2 % 4.0-6. 0 high Diabe eugene Scree rut Crite liza: <5.7% Consi stent with absen ce of diabe eugene 5.7-6 .4% Consi stent with incre ased risk for diabe eugene (pred iabet es) >OR=6 .5% Consi stent with diabe eugene REFER ENCE: Diabe eugene Care 2016, 39(Stacy ppl.1 ):s13 -s22 Not Available [facility] (Lab) [address] [place], [address], 12/04/2022 22:47:24 04/25/20 23 04/25/2023 CBC/C OMPLE TE BLD COUNT W/DIF F white blood cells 6.4 x10'3 /uL 4.2-10 .8 Not Available [facility] (Lab) [address] [place], [address], 04/25/2023 18:13:04 04/25/20 23 04/25/2023 CBC/C OMPLE TE BLD COUNT W/DIF F red blood cells 4.75 x10'6 /uL 3.80-5 .20 Not Available [facility] (Lab) [address] [place], [address], 04/25/2023 18:13:04 04/25/20 23 04/25/2023 CBC/C OMPLE TE BLD COUNT W/DIF F hemoglobin 15.1 g/dL 12.0-1 5.6 Not Available [facility] (Lab) [address] [place], [address], 04/25/2023 18:13:04 04/25/20 23 04/25/2023 CBC/C OMPLE TE BLD COUNT W/DIF F hematocrit 46.0 % 35.7-4 5.7 high Not Available [facility] (Lab) [address] [place], [address], 04/25/2023 18:13:04 04/25/20 23 04/25/2023 CBC/C OMPLE TE BLD COUNT W/DIF F mean red cell volume 96.8 fL 82.0-9 9.0 Not Available [facility] (Lab) [address] [place], [address], 04/25/2023 18:13:04 04/25/20 23 04/25/2023 CBC/C OMPLE TE BLD COUNT W/DIF F mean red cell hemoglobin 31.8 pg 27.0-3 3.0 Not Available [facility] (Lab) [address] [place], [address], 04/25/2023 18:13:04 04/25/20 23 04/25/2023 CBC/C OMPLE TE BLD COUNT W/DIF F mean RBC HGB concentratio n 32.8 g/dL 31.0-3 6.0 Not Available [facility] (Lab) [address] [place], [address], 04/25/2023 18:13:04 04/25/20 23 04/25/2023 CBC/C OMPLE TE BLD COUNT W/DIF F red cell distribution width 12.8 % 11.8-1 5.5 Not Available [facility] (Lab) [address] [place] [place], [address], 04/25/2023 18:13:04 04/25/20 23 04/25/2023 CBC/C OMPLE TE BLD COUNT W/DIF F platelets 196 x10'3 /uL 150-40 0 Not Available [facility] (Lab) [address] [place], [address], 04/25/2023 18:13:04 04/25/20 23 04/25/2023 CBC/C OMPLE TE BLD COUNT W/DIF F mean platelet volume 14.1 fL 9.0-12 .4 high Not Available [facility] (Lab) [address] [place], [address], 04/25/2023 18:13:04 04/25/20 23 04/25/2023 CBC/C OMPLE TE BLD COUNT W/DIF F neutrophils 72.8 % 39.0-7 2.0 high Not Available [facility] (Lab) [address] [place], [address], 04/25/2023 18:13:04 04/25/20 23 04/25/2023 CBC/C OMPLE TE BLD COUNT W/DIF F lymphocytes 16.2 % 16.0-4 7.0 Not Available [facility] (Lab) [address] [place], [address], 04/25/2023 18:13:04 04/25/2004/25/2023 CBC/C OMPLE TE BLD COUNT W/DIF F monocytes 7.2 % 5.0-12 .0 Not Available [facility] (Lab) [address] [place], [address], 04/25/2023 18:13:04 04/25/20 23 04/25/2023 CBC/C OMPLE TE BLD COUNT W/DIF F eosinophils 2.8 % 1.0-7. 0 Not Available [facility] (Lab) [address] [place], [address], 04/25/2023 18:13:04 04/25/2004/25/2023 CBC/C OMPLE TE BLD COUNT W/DIF F basophils 0.8 % 0.0-2. 0 Not Available [facility] (Lab) [address] [place], [address], 04/25/2023 18:13:04 04/25/2004/25/2023 CBC/C OMPLE TE BLD COUNT W/DIF F immature granulocytes 0.2 % 0.00-0 .50 Not Available [facility] (Lab) [address] [place], [address], 04/25/2023 18:13:04 04/25/20 23 04/25/2023 CBC/C OMPLE TE BLD COUNT W/DIF F neutrophils, absolute count 4.64 x10'3 /uL 1.5-8. 0 Not Available [facility] (Lab) [address] [place], [address], 04/25/2023 18:13:04 04/25/20 23 04/25/2023 CBC/C OMPLE TE BLD COUNT W/DIF F lymphocytes, absolute count 1.03 x10'3 /uL 1.07-3 .43 low Not Available [facility] (Lab) [address] [place], [address], 04/25/2023 18:13:04 04/25/2004/25/2023 CBC/C OMPLE TE BLD COUNT W/DIF F monocytes, absolute count 0.46 x10'3 /uL 0.29-0 .99 Not Available [facility] (Lab) [address] [place], [address], 04/25/2023 18:13:04 04/25/20 23 04/25/2023 CBC/C OMPLE TE BLD COUNT W/DIF F eosinophils, absolute count 0.18 x10'3 /uL 0.02-0 .53 Not Available [facility] (Lab) [address] [place], [address], 04/25/2023 18:13:04 04/25/2004/25/2023 CBC/C OMPLE TE BLD COUNT W/DIF F basophils, absolute count 0.05 x10'3 /uL 0.01-0 .08 Not Available [facility] (Lab) [address] [place], [address], 04/25/2023 18:13:04 04/25/2004/25/2023 CBC/C OMPLE TE BLD COUNT W/DIF F immature granulocytes ,absolute 0.01 x10'3 /uL 0.00-0 .05 Not Available [facility] (Lab) [address] [place], [address], 04/25/2023 18:13:04 04/25/20 23 04/25/2023 CBC/C OMPLE TE BLD COUNT W/DIF F nucleated red blood cells 0.0 % -0 Not Available [facility] (Lab) [address] [place], [address], 04/25/2023 18:13:04 04/25/20 23 04/25/2023 CBC/C OMPLE TE BLD COUNT W/DIF F NRBC# 0.00 x10'3 /uL Not Available [facility] (Lab) [address] [place], [address], 04/25/2023 18:13:04 04/25/20 23 04/25/2023 COMPR EHENS JOSE FRANCISCO METAB OLIC PANEL sodium 135 mmol/ L 137-14 5 low Not Available [facility] (Lab) [address] [place], [address], 04/25/2023 19:16:17 04/25/20 23 04/25/2023 COMPR EHENS JOSE FRANCISCO METAB OLIC PANEL potassium 4.6 mmol/ L 3.5-5. 1 Not Available [facility] (Lab) [address] [place], [address], 04/25/2023 19:16:17 04/25/20 23 04/25/2023 COMPR EHENS JOSE FRANCISCO METAB OLIC PANEL chloride 98 mmol/ L 98-107 Not Available [facility] (Lab) [address] [place], [address], 04/25/2023 19:16:17 04/25/20 23 04/25/2023 COMPR EHENS JOSE FRANCISCO METAB OLIC PANEL carbon dioxide 27 mmol/ L 22-30 Not Available [facility] (Lab) [address] [place], [address], 04/25/2023 19:16:17 04/25/20 23 04/25/2023 COMPR EHENS JOSE FRANCISCO METAB OLIC PANEL anion gap 14.6 mmol/ L 14-22 Not Available [facility] (Lab) [address] [place], [address], 04/25/2023 19:16:17 04/25/20 23 04/25/2023 COMPR EHENS JOSE FRANCISCO METAB OLIC PANEL glucose 312 mg/dL 70-99 high Not Available [facility] (Lab) [address] [place], [address], 04/25/2023 19:16:17 04/25/20 23 04/25/2023 COMPR EHENS JOSE FRANCISCO METAB OLIC PANEL BUN 14 mg/dL 8-19 Not Available [facility] (Lab) [address] [place], [address], 04/25/2023 19:16:17 04/25/20 23 04/25/2023 COMPR EHENS JOSE FRANCISCO METAB OLIC PANEL creatinine 0.70 mg/dL 0.66-1 .25 Not Available [facility] (Lab) [address] [place], [address], 04/25/2023 19:16:17 04/25/2004/25/2023 COMPR EHENS JOSE FRANCISCO METAB OLIC PANEL GFR >60 Refer ence Range : Mobile ge GFR Healt hy Adult : >60 [...] calcu lator is avail able on the [facility] websi te: [email or web address] :[email or web address] ofess ional s/kdo qi/gf r_cal culat or Not Available [facility] (Lab) [address] [place], [address], 04/25/2023 19:16:17 04/25/2004/25/2023 COMPR EHENS JOSE FRANCISCO METAB OLIC PANEL alkaline phosphatase 121 U/L 38-126 Not Available [facility] (Lab) [address] [place], [address], 04/25/2023 19:16:17 04/25/2004/25/2023 COMPR EHENS JOSE FRANCISCO METAB OLIC PANEL alanine aminotransfe rase 53 U/L 0-35 high Not Available [facility] (Lab) [address] [place], [address], 04/25/2023 19:16:17 04/25/2004/25/2023 COMPR EHENS JOSE FRANCISCO METAB OLIC PANEL aspartate aminotransfe rase 67 U/L 15-37 high Not Available [facility] (Lab) [address] [place], [address], 04/25/2023 19:16:17 04/25/2004/25/2023 COMPR EHENS JOSE FRANCISCO METAB OLIC PANEL bilirubin, total 0.50 mg/dL 0.20-1 .30 Not Available [facility] (Lab) [address] [place], [address], 04/25/2023 19:16:17 04/25/2004/25/2023 COMPR EHENS JOSE FRANCISCO METAB OLIC PANEL calcium 9.8 mg/dL 8.4-10 .2 Not Available [facility] (Lab) [address] [place], [address], 04/25/2023 19:16:17 04/25/20 23 04/25/2023 COMPR EHENS JOSE FRANCISCO METAB OLIC PANEL total protein 7.7 g/dL 6.3-8. 2 Not Available [facility] (Lab) [address] [place], [address], 04/25/2023 19:16:17 04/25/20 23 04/25/2023 COMPR EHENS JOSE FRANCISCO METAB OLIC PANEL albumin 4.6 g/dL 3.0-4. 4 high Not Available [facility] (Lab) [address] [place], [address], 04/25/2023 19:16:17 04/25/2004/25/2023 COMPR EHENS JOSE FRANCISCO METAB OLIC PANEL globulin 3.1 g/dL 2.6-4. 2 Not Available [facility] (Lab) [address] [place], [address], 04/25/2023 19:16:17 04/25/20 23 04/25/2023 COMPR EHENS JOSE FRANCISCO METAB OLIC PANEL A/G ratio 1.5 ratio 1.0-2. 0 Not Available [facility] (Lab) [address] [place], [address], 04/25/2023 19:16:17 04/25/20 23 04/25/2023 LIPID PANEL cholesterol 210 mg/dL 140-19 9 high NIH JESUS NSUS RECOM MENDA TION FOR DALIA STERO L: ADULT CHILD LOW RISK: <200 <170 BORDE RLINE : <200- 239 ----- HIGH RISK: >240 >200 Not Available [facility] (Lab) [address] [place], [address], 04/25/2023 19:16:22 04/25/20 23 04/25/2023 LIPID PANEL triglyceride s 388 mg/dL 0-150 high NIH JESUS NSUS REPOR T RECOM MENDA TION FOR TRIGL YCERI XIOMARA: ADULT CHILD LOW RISK: <150 ----- BODER LINE: 150-1 99 ----- HIGH RISK: >200 ----- Not Available [facility] (Lab) [address] [place], [address], 04/25/2023 19:16:22 04/25/20 23 04/25/2023 LIPID PANEL HDL cholesterol 61 mg/dL 40- Not Available [facility] (Lab) [address] [place], [address], 04/25/2023 19:16:22 04/25/20 23 04/25/2023 LIPID PANEL LDL cholesterol, calculated 71 mg/dL [...] WILL NOT BE REPOR ADAM. Not Available [facility] (Lab) [address] [place], [address], 04/25/2023 19:16:22 04/25/2004/25/2023 HEMOG LOBIN A1C HA1C 9.4 % 4.0-6. 0 high Diabe eugene Scree rut Crite liza: <5.7% Consi stent with absen ce of diabe eugene 5.7-6 .4% Consi stent with incre ased risk for diabe eugene (pred iabet es) >OR=6 .5% Consi stent with diabe eugene REFER ENCE: Diabe eugene Care 2016, 39(Stacy ppl.1 ):s13 -s22 Not Available [facility] (Lab) [address] [place], [address], 04/25/2023 19:43:58 12/17/19 24 12/17/2023 CBC/C OMPLE TE BLD COUNT W/DIF F white blood cells 6.1 x10'3 /uL 4.2-10 .8 Not Available [facility] (Lab) [address] [place], [address], 12/17/2023 15:41:58 12/17/19 24 12/17/2023 CBC/C OMPLE TE BLD COUNT W/DIF F red blood cells 4.38 x10'6 /uL 3.80-5 .20 Not Available [facility] (Lab) [address] [place], [address], 12/17/2023 15:41:58 12/17/19 24 12/17/2023 CBC/C OMPLE TE BLD COUNT W/DIF F hemoglobin 14.3 g/dL 12.0-1 5.6 Not Available [facility] (Lab) [address] [place], [address], 12/17/2023 15:41:58 12/17/19 24 12/17/2023 CBC/C OMPLE TE BLD COUNT W/DIF F hematocrit 42.7 % 35.7-4 5.7 Not Available [facility] (Lab) [address] [place], [address], 12/17/2023 15:41:58 12/17/19 24 12/17/2023 CBC/C OMPLE TE BLD COUNT W/DIF F mean red cell volume 97.5 fL 82.0-9 9.0 Not Available [facility] (Lab) [address] [place], [address], 12/17/2023 15:41:58 12/17/19 24 12/17/2023 CBC/C OMPLE TE BLD COUNT W/DIF F mean red cell hemoglobin 32.6 pg 27.0-3 3.0 Not Available [facility] (Lab) [address] [place], [address], 12/17/2023 15:41:58 12/17/19 24 12/17/2023 CBC/C OMPLE TE BLD COUNT W/DIF F mean RBC HGB concentratio n 33.5 g/dL 31.0-3 6.0 Not Available [facility] (Lab) [address] [place], [address], 12/17/2023 15:41:58 12/17/19 24 12/17/2023 CBC/C OMPLE TE BLD COUNT W/DIF F red cell distribution width 13.2 % 11.8-1 5.5 Not Available [facility] (Lab) [address] [place], [address], 12/17/2023 15:41:58 12/17/19 24 12/17/2023 CBC/C OMPLE TE BLD COUNT W/DIF F platelets 216 x10'3 /uL 150-40 0 Not Available [facility] (Lab) [address] [place], [address], 12/17/2023 15:41:58 12/17/19 24 12/17/2023 CBC/C OMPLE TE BLD COUNT W/DIF F mean platelet volume 13.8 fL 9.0-12 .4 high Not Available [facility] (Lab) [address] [place], [address], 12/17/2023 15:41:58 12/17/19 24 12/17/2023 CBC/C OMPLE TE BLD COUNT W/DIF F neutrophils 70.5 % 39.0-7 2.0 Not Available [facility] (Lab) [address] [place], [address], 12/17/2023 15:41:58 12/17/19 24 12/17/2023 CBC/C OMPLE TE BLD COUNT W/DIF F lymphocytes 20.8 % 16.0-4 7.0 Not Available [facility] (Lab) [address] [place], [address], 12/17/2023 15:41:58 12/17/19 24 12/17/2023 CBC/C OMPLE TE BLD COUNT W/DIF F monocytes 5.4 % 5.0-12 .0 Not Available [facility] (Lab) [address] [place], [address], 12/17/2023 15:41:58 12/17/19 24 12/17/2023 CBC/C OMPLE TE BLD COUNT W/DIF F eosinophils 2.3 % 1.0-7. 0 Not Available [facility] (Lab) [address] [place], [address], 12/17/2023 15:41:58 12/17/19 24 12/17/2023 CBC/C OMPLE TE BLD COUNT W/DIF F basophils 0.8 % 0.0-2. 0 Not Available [facility] (Lab) [address] [place], [address], 12/17/2023 15:41:58 12/17/19 24 12/17/2023 CBC/C OMPLE TE BLD COUNT W/DIF F immature granulocytes 0.2 % 0.00-0 .50 Not Available [facility] (Lab) [address] [place], [address], 12/17/2023 15:41:58 12/17/19 24 12/17/2023 CBC/C OMPLE TE BLD COUNT W/DIF F neutrophils, absolute count 4.30 x10'3 /uL 1.5-8. 0 Not Available [facility] (Lab) [address] [place], [address], 12/17/2023 15:41:58 12/17/19 24 12/17/2023 CBC/C OMPLE TE BLD COUNT W/DIF F lymphocytes, absolute count 1.27 x10'3 /uL 1.07-3 .43 Not Available [facility] (Lab) [address] [place], [address], 12/17/2023 15:41:58 12/17/19 24 12/17/2023 CBC/C OMPLE TE BLD COUNT W/DIF F monocytes, absolute count 0.33 x10'3 /uL 0.29-0 .99 Not Available [facility] (Lab) [address] [place], [address], 12/17/2023 15:41:58 12/17/19 24 12/17/2023 CBC/C OMPLE TE BLD COUNT W/DIF F eosinophils, absolute count 0.14 x10'3 /uL 0.02-0 .53 Not Available [facility] (Lab) [address] [place], [address], 12/17/2023 15:41:58 12/17/19 24 12/17/2023 CBC/C OMPLE TE BLD COUNT W/DIF F basophils, absolute count 0.05 x10'3 /uL 0.01-0 .08 Not Available [facility] (Lab) [address] [place], [address], 12/17/2023 15:41:58 12/17/19 24 12/17/2023 CBC/C OMPLE TE BLD COUNT W/DIF F immature granulocytes ,absolute 0.01 x10'3 /uL 0.00-0 .05 Not Available [facility] (Lab) [address] [place], [address], 12/17/2023 15:41:58 12/17/19 24 12/17/2023 CBC/C OMPLE TE BLD COUNT W/DIF F nucleated red blood cells 0.0 % -0 Not Available [facility] (Lab) [address] [place], [address], 12/17/2023 15:41:58 12/17/19 24 12/17/2023 CBC/C OMPLE TE BLD COUNT W/DIF F NRBC# 0.00 x10'3 /uL Not Available [facility] (Lab) [address] [place], [address], 12/17/2023 15:41:58 12/17/19 24 12/17/2023 LIPID PANEL cholesterol 250 mg/dL 140-19 9 high NIH JESUS NSUS RECOM MENDA TION FOR DALIA STERO L: ADULT CHILD LOW RISK: <200 <170 BORDE RLINE : <200- 239 ----- HIGH RISK: >240 >200 Not Available [facility] (Lab) [address] [place], [address], 12/17/2023 18:07:15 12/17/19 24 12/17/2023 LIPID PANEL triglyceride s 435 mg/dL 0-150 high NIH JESUS NSUS REPOR T RECOM MENDA TION FOR TRIGL YCERI XIOMARA: ADULT CHILD LOW RISK: <150 ----- BODER LINE: 150-1 99 ----- HIGH RISK: >200 ----- Not Available [facility] (Lab) [address] [place], [address], 12/17/2023 18:07:15 12/17/19 24 12/17/2023 LIPID PANEL HDL cholesterol 60 mg/dL 40- Not Available [facility] (Lab) [address] [place], [address], 12/17/2023 18:07:15 12/17/19 24 12/17/2023 COMPR EHENS JOSE FRANCISCO METAB OLIC PANEL sodium 138 mmol/ L 137-14 5 Not Available [facility] (Lab) [address] [place], [address], 12/17/2023 18:07:21 12/17/19 24 12/17/2023 COMPR EHENS JOSE FRANCISCO METAB OLIC PANEL potassium 4.1 mmol/ L 3.5-5. 1 Not Available [facility] (Lab) [address] [place], [address], 12/17/2023 18:07:21 12/17/19 24 12/17/2023 COMPR EHENS JOSE FRANCISCO METAB OLIC PANEL chloride 102 mmol/ L 98-107 Not Available [facility] (Lab) [address] [facility] [place] [place], [address], 12/17/2023 18:07:21 12/17/19 24 12/17/2023 COMPR EHENS JOSE FRANCISCO METAB OLIC PANEL carbon dioxide 30 mmol/ L 22-30 Not Available [facility] (Lab) [address] [place], [address], 12/17/2023 18:07:21 12/17/19 24 12/17/2023 COMPR EHENS JOSE FRANCISCO METAB OLIC PANEL anion gap 10.1 mmol/ L 14-22 low Not Available [facility] (Lab) [address] [place], [address], 12/17/2023 18:07:21 12/17/19 24 12/17/2023 COMPR EHENS JOSE FRANCISCO METAB OLIC PANEL glucose 244 mg/dL 70-99 high Not Available [facility] (Lab) [address] [place], [address], 12/17/2023 18:07:21 12/17/19 24 12/17/2023 COMPR EHENS JOSE FRANCISCO METAB OLIC PANEL BUN 7 mg/dL 8-19 low Not Available [facility] (Lab) [address] [place], [address], 12/17/2023 18:07:21 12/17/19 24 12/17/2023 COMPR EHENS JOSE FRANCISCO METAB OLIC PANEL creatinine 0.79 mg/dL 0.66-1 .25 Not Available [facility] (Lab) [address] [place], [address], 12/17/2023 18:07:21 12/17/19 24 12/17/2023 COMPR EHENS JOSE FRANCISCO METAB OLIC PANEL GFR >60 Refer ence Range : Mobile ge GFR Healt hy Adult : >60 [...] calcu lator is avail able on the [facility] websi te: https :[email or web address] sabrina richards s/kdo qi/gf r_cal culat or Not Available [facility] (Lab) [address] [place], [address], 12/17/2023 18:07:21 12/17/19 24 12/17/2023 COMPR EHENS JOSE FRANCISCO METAB OLIC PANEL alkaline phosphatase 124 U/L 38-126 Not Available [facility] (Lab) [address] [place], [address], 12/17/2023 18:07:21 12/17/19 24 12/17/2023 COMPR EHENS JOSE FRANCISCO METAB OLIC PANEL alanine aminotransfe rase 37 U/L 0-35 high Not Available [facility] (Lab) [address] [place], [address], 12/17/2023 18:07:21 12/17/19 24 12/17/2023 COMPR EHENS JOSE FRANCISCO METAB OLIC PANEL aspartate aminotransfe rase 41 U/L 15-37 high Not Available [facility] (Lab) [address] [place], [address], 12/17/2023 18:07:21 12/17/19 24 12/17/2023 COMPR EHENS JOSE FRANCISCO METAB OLIC PANEL bilirubin, total 0.60 mg/dL 0.20-1 .30 Not Available [facility] (Lab) [address] [place], [address], 12/17/2023 18:07:21 12/17/19 24 12/17/2023 COMPR EHENS JOSE FRANCISCO METAB OLIC PANEL calcium 9.8 mg/dL 8.4-10 .2 Not Available [facility] (Lab) [address] [place], [address], 12/17/2023 18:07:21 12/17/19 24 12/17/2023 COMPR EHENS JOSE FRANCISCO METAB OLIC PANEL total protein 7.0 g/dL 6.3-8. 2 Not Available [facility] (Lab) [address] [place], [address], 12/17/2023 18:07:21 12/17/19 24 12/17/2023 COMPR EHENS JOSE FRANCISCO METAB OLIC PANEL albumin 4.2 g/dL 3.0-4. 4 Not Available [facility] (Lab) [address] [place], [address], 12/17/2023 18:07:21 12/17/19 24 12/17/2023 COMPR EHENS JOSE FRANCISCO METAB OLIC PANEL globulin 2.8 g/dL 2.6-4. 2 Not Available [facility] (Lab) [address] [place], [address], 12/17/2023 18:07:21 12/17/19 24 12/17/2023 COMPR EHENS JOSE FRANCISCO METAB OLIC PANEL A/G ratio 1.5 ratio 1.0-2. 0 Not Available [facility] (Lab) [address] [place], [address], 12/17/2023 18:07:21 12/17/19 24 12/17/2023 T4 FREE free T4 0.93 NG/dL 0.78-2 .19 Not Available [facility] (Lab) [address] [place], [address], 12/17/2023 18:25:20 12/17/19 24 12/17/2023 T3 FREE free T3 3.0 pg/mL 2.77-5 .27 Not Available [facility] (Lab) [address] [place], [address], 12/17/2023 18:25:30 12/17/19 24 12/17/2023 TSH thyroid-stim ulating hormone 5.970 uIU/m L 0.465- 4.680 high Not Available [facility] (Lab) [address] [place], [address], 12/17/2023 18:40:27 12/17/19 24 12/17/2023 HEMOG LOBIN A1C HA1C 8.7 % 4.0-6. 0 high Diabe eugene Scree rut Crite liza: <5.7% Consi stent with absen ce of diabe eugene 5.7-6 .4% Consi stent with incre ased risk for diabe eugene (pred iabet es) >OR=6 .5% Consi stent with diabe eugene REFER ENCE: Diabe eugene Care 2016, 39(Stacy ppl.1 ):s13 -s22 Not Available [facility] (Lab) [address] [place], [address], 12/17/2023 21:30:16 05/07/20 24 05/07/2024 CBC/C OMPLE TE BLD COUNT W/DIF F white blood cells 6.3 x10'3 /uL 4.2-10 .8 Not Available [facility] (Lab) [address] [place], [address], 05/07/2024 16:53:41 05/07/20 24 05/07/2024 CBC/C OMPLE TE BLD COUNT W/DIF F red blood cells 4.64 x10'6 /uL 3.80-5 .20 Not Available [facility] (Lab) [address] [place], [address], 05/07/2024 16:53:41 05/07/20 24 05/07/2024 CBC/C OMPLE TE BLD COUNT W/DIF F hemoglobin 15.2 g/dL 12.0-1 5.6 Not Available [facility] (Lab) [address] [place], [address], 05/07/2024 16:53:41 05/07/20 24 05/07/2024 CBC/C OMPLE TE BLD COUNT W/DIF F hematocrit 45.0 % 35.7-4 5.7 Not Available [facility] (Lab) [address] [place], [address], 05/07/2024 16:53:41 05/07/20 24 05/07/2024 CBC/C OMPLE TE BLD COUNT W/DIF F mean red cell volume 97.0 fL 82.0-9 9.0 Not Available [facility] (Lab) [address] [place], [address], 05/07/2024 16:53:41 05/07/20 24 05/07/2024 CBC/C OMPLE TE BLD COUNT W/DIF F mean red cell hemoglobin 32.8 pg 27.0-3 3.0 Not Available [facility] (Lab) [address] [place], [address], 05/07/2024 16:53:41 05/07/20 24 05/07/2024 CBC/C OMPLE TE BLD COUNT W/DIF F mean RBC HGB concentratio n 33.8 g/dL 31.0-3 6.0 Not Available [facility] (Lab) [address] [place], [address], 05/07/2024 16:53:41 05/07/20 24 05/07/2024 CBC/C OMPLE TE BLD COUNT W/DIF F red cell distribution width 12.7 % 11.8-1 5.5 Not Available [facility] (Lab) [address] [place], [address], 05/07/2024 16:53:41 05/07/20 24 05/07/2024 CBC/C OMPLE TE BLD COUNT W/DIF F platelets 210 x10'3 /uL 150-40 0 Not Available [facility] (Lab) [address] [place], [address], 05/07/2024 16:53:41 05/07/20 24 05/07/2024 CBC/C OMPLE TE BLD COUNT W/DIF F mean platelet volume 13.7 fL 9.0-12 .4 high Not Available [facility] (Lab) [address] [place], [address], 05/07/2024 16:53:41 05/07/20 24 05/07/2024 CBC/C OMPLE TE BLD COUNT W/DIF F neutrophils 73.5 % 39.0-7 2.0 high Not Available [facility] (Lab) [address] [place], [address], 05/07/2024 16:53:41 05/07/20 24 05/07/2024 CBC/C OMPLE TE BLD COUNT W/DIF F lymphocytes 17.5 % 16.0-4 7.0 Not Available [facility] (Lab) [address] [place], [address], 05/07/2024 16:53:41 05/07/20 24 05/07/2024 CBC/C OMPLE TE BLD COUNT W/DIF F monocytes 6.0 % 5.0-12 .0 Not Available [facility] (Lab) [address] [place], [address], 05/07/2024 16:53:41 05/07/20 24 05/07/2024 CBC/C OMPLE TE BLD COUNT W/DIF F eosinophils 1.9 % 1.0-7. 0 Not Available [facility] (Lab) [address] [place], [address], 05/07/2024 16:53:41 05/07/20 24 05/07/2024 CBC/C OMPLE TE BLD COUNT W/DIF F basophils 0.8 % 0.0-2. 0 Not Available [facility] (Lab) [address] [place], [address], 05/07/2024 16:53:41 05/07/20 24 05/07/2024 CBC/C OMPLE TE BLD COUNT W/DIF F immature granulocytes 0.3 % 0.00-0 .50 Not Available [facility] (Lab) [address] [place], [address], 05/07/2024 16:53:41 05/07/20 24 05/07/2024 CBC/C OMPLE TE BLD COUNT W/DIF F neutrophils, absolute count 4.63 x10'3 /uL 1.5-8. 0 Not Available [facility] (Lab) [address] [place], [address], 05/07/2024 16:53:41 05/07/20 24 05/07/2024 CBC/C OMPLE TE BLD COUNT W/DIF F lymphocytes, absolute count 1.10 x10'3 /uL 1.07-3 .43 Not Available [facility] (Lab) [address] [place], [address], 05/07/2024 16:53:41 05/07/20 24 05/07/2024 CBC/C OMPLE TE BLD COUNT W/DIF F monocytes, absolute count 0.38 x10'3 /uL 0.29-0 .99 Not Available [facility] (Lab) [address] [place], [address], 05/07/2024 16:53:41 05/07/20 24 05/07/2024 CBC/C OMPLE TE BLD COUNT W/DIF F eosinophils, absolute count 0.12 x10'3 /uL 0.02-0 .53 Not Available [facility] (Lab) [address] [place], [address], 05/07/2024 16:53:41 05/07/20 24 05/07/2024 CBC/C OMPLE TE BLD COUNT W/DIF F basophils, absolute count 0.05 x10'3 /uL 0.01-0 .08 Not Available [facility] (Lab) [address] [place], [address], 05/07/2024 16:53:41 05/07/20 24 05/07/2024 CBC/C OMPLE TE BLD COUNT W/DIF F immature granulocytes ,absolute 0.02 x10'3 /uL 0.00-0 .05 Not Available [facility] (Lab) [address] [place], [address], 05/07/2024 16:53:41 05/07/20 24 05/07/2024 CBC/C OMPLE TE BLD COUNT W/DIF F nucleated red blood cells 0.0 % -0 Not Available [facility] (Lab) [address] [place], [address], 05/07/2024 16:53:41 05/07/20 24 05/07/2024 CBC/C OMPLE TE BLD COUNT W/DIF F NRBC# 0.00 x10'3 /uL Not Available [facility] (Lab) [address] [place], [address], 05/07/2024 16:53:41 05/07/20 24 05/07/2024 LIPID PANEL cholesterol 329 mg/dL 140-19 9 high NIH JESUS NSUS RECOM MENDA TION FOR DALIA STERO L: ADULT CHILD LOW RISK: <200 <170 BORDE RLINE : <200- 239 ----- HIGH RISK: >240 >200 Not Available [facility] (Lab) [address] [place], [address], 05/07/2024 17:14:27 05/07/20 24 05/07/2024 LIPID PANEL triglyceride s 690 mg/dL 0-150 high NIH JESUS NSUS REPOR T RECOM MENDA TION FOR TRIGL YCERI XIOMARA: ADULT CHILD LOW RISK: <150 ----- BODER LINE: 150-1 99 ----- HIGH RISK: >200 ----- Not Available [facility] (Lab) [address] [place], [address], 05/07/2024 17:14:27 05/07/20 24 05/07/2024 LIPID PANEL HDL cholesterol 56 mg/dL 40- Not Available [facility] (Lab) [address] [place], [address], 05/07/2024 17:14:27 05/07/20 24 05/07/2024 COMPR EHENS JOSE FRANCISCO METAB OLIC PANEL sodium 135 mmol/ L 137-14 5 low Not Available [facility] (Lab) [address] [place], [address], 05/07/2024 17:14:12 05/07/20 24 05/07/2024 COMPR EHENS JOSE FRANCISCO METAB OLIC PANEL potassium 4.6 mmol/ L 3.5-5. 1 Not Available [facility] (Lab) [address] [place], [address], 05/07/2024 17:14:12 05/07/20 24 05/07/2024 COMPR EHENS JOSE FRANCISCO METAB OLIC PANEL chloride 101 mmol/ L 98-107 Not Available [facility] (Lab) [address] [place], [address], 05/07/2024 17:14:12 05/07/20 24 05/07/2024 COMPR EHENS JOSE FRANCISCO METAB OLIC PANEL carbon dioxide 25 mmol/ L 22-30 Not Available [facility] (Lab) [address] [place], [address], 05/07/2024 17:14:12 05/07/20 24 05/07/2024 COMPR EHENS JOSE FRANCISCO METAB OLIC PANEL anion gap 13.6 mmol/ L 14- low Not Available [facility] (Lab) [address] [place], [address], 05/07/2024 17:14:12 05/07/20 24 05/07/2024 COMPR EHENS JOSE FRANCISCO METAB OLIC PANEL glucose 305 mg/dL 70-99 high Not Available [facility] (Lab) [address] [place], [address], 05/07/2024 17:14:12 05/07/20 24 05/07/2024 COMPR EHENS JOSE FRANCISCO METAB OLIC PANEL BUN 9 mg/dL 8-19 Not Available [facility] (Lab) [address] [place], [address], 05/07/2024 17:14:12 05/07/20 24 05/07/2024 COMPR EHENS JOSE FRANCISCO METAB OLIC PANEL creatinine 0.79 mg/dL 0.66-1 .25 Not Available [facility] (Lab) [address] [place], [address], 05/07/2024 17:14:12 05/07/20 24 05/07/2024 COMPR EHENS JOSE FRANCISCO METAB OLIC PANEL GFR >60 Refer ence Range : Mobile ge GFR Healt hy Adult : >60 [...] calcu lator is avail able on the [facility] websi te: [email or web address] :[email or web address] [email or web address] [email or web address] ional [email or web address] [email or web address]/gf r_cal culat or Not Available [facility] (Lab) [address] [place], [address], 05/07/2024 17:14:12 05/07/20 24 05/07/2024 COMPR EHENS JOSE FRANCISCO METAB OLIC PANEL alkaline phosphatase 143 U/L 38-126 high Not Available [facility] (Lab) [address] [place], [address], 05/07/2024 17:14:12 05/07/20 24 05/07/2024 COMPR EHENS JOSE FRANCISCO METAB OLIC PANEL alanine aminotransfe rase 29 U/L 0-35 Not Available [facility] (Lab) [address] [place], [address], 05/07/2024 17:14:12 05/07/20 24 05/07/2024 COMPR EHENS JOSE FRANCISCO METAB OLIC PANEL aspartate aminotransfe rase 32 U/L 15-37 Not Available [facility] (Lab) [address] [place], [address], 05/07/2024 17:14:12 05/07/20 24 05/07/2024 COMPR EHENS JOSE FRANCISCO METAB OLIC PANEL bilirubin, total 0.60 mg/dL 0.20-1 .30 Not Available [facility] (Lab) [address] [place], [address], 05/07/2024 17:14:12 05/07/20 24 05/07/2024 COMPR EHENS JOSE FRANCISCO METAB OLIC PANEL calcium 10.1 mg/dL 8.4-10 .2 Not Available [facility] (Lab) [address] [place], [address], 05/07/2024 17:14:12 05/07/20 24 05/07/2024 COMPR EHENS JOSE FRANCISCO METAB OLIC PANEL total protein 7.3 g/dL 6.3-8. 2 Not Available [facility] (Lab) [address] [place], [address], 05/07/2024 17:14:12 05/07/20 24 05/07/2024 COMPR EHENS JOSE FRANCISCO METAB OLIC PANEL albumin 4.2 g/dL 3.0-4. 4 Not Available [facility] (Lab) [address] [place], [address], 05/07/2024 17:14:12 05/07/20 24 05/07/2024 COMPR EHENS JOSE FRANCISCO METAB OLIC PANEL globulin 3.1 g/dL 2.6-4. 2 Not Available [facility] (Lab) [address] [place], [address], 05/07/2024 17:14:12 05/07/20 24 05/07/2024 COMPR EHENS JOSE FRANCISCO METAB OLIC PANEL A/G ratio 1.4 ratio 1.0-2. 0 Not Available [facility] (Lab) [address] [place], [address], 05/07/2024 17:14:12 05/07/20 24 05/07/2024 T4 FREE free T4 1.40 NG/dL 0.78-2 .19 Not Available [facility] (Lab) [address] [place], [address], 05/07/2024 17:20:54 05/07/20 24 05/07/2024 T3 FREE free T3 3.2 pg/mL 2.77-5 .27 Not Available [facility] (Lab) [address] [place], [place], [id number], 05/07/2024 17:20:59 05/07/20 24 05/07/2024 TSH thyroid-stim ulating hormone 4.840 uIU/m L 0.465- 4.680 high Not Available [facility] (Lab) [address] [place], [address], 05/07/2024 17:41:26 05/07/20 24 05/07/2024 HEMOG LOBIN A1C HA1C 11.9 % 4.0-6. 0 high Diabe eugene Scree rut Crite liza: <5.7% Consi stent with absen ce of diabe eugene 5.7-6 .4% Consi stent with incre ased risk for diabe eugene (pred iabet es) >OR=6 .5% Consi stent with diabe eugene REFER ENCE: Diabe eugene Care 2016, 39(Stacy ppl.1 ):s13 -s22 Not Available [facility] (Lab) [address] [place], [address], 05/07/2024 20:04:35 Result Notes None recorded. Problems Name Problem SNOMED Code Status Onset Date Resolution Date Notes Provider Name and Address Organization Details Recorded Time Spinal enthesopat 83758875 Active Not Available [facility] 3 08:15:22 Pain in lower limb 71672270 Completed Not Available [facility] 3 04:52:36 Disorder of shoulder 593873234 Active Not Available [facility] 3 08:15:22 Backache 769450777 Active Not Available [facility] 3 08:15:22 Anxiety state 744494436 Active Not Available [facility] 3 08:15:22 Abdominal pain 13581339 Completed Not Available [facility] 3 04:52:37 Depressive disorder 04816562 Active Not Available [facility] 3 08:15:23 Hypothyroi dism 16011162 Active Not Available [facility] 3 08:15:23 Herpes zoster 5570538 Active Not Available [facility] 3 08:15:23 Pain of hip region 99087528 Active Not Available [facility] 3 08:15:23 Dysuria 69597496 Active Not Available [facility] 3 08:15:23 Hyperlipid emia 31981140 Active Not Available [facility] 3 08:15:23 Diabetes mellitus 45984172 Active 2017 Not Available [facility] 3 08:15:23 Pain of sacroiliac joint 183594665 Active 2019 Not Available [facility] 3 08:15:22 Herpesviru s infection 59770724 Active 2021 Not Available [facility] 3 08:15:22 Candidiasi s of vagina 19317661 Active 2021 Not Available [facility] 3 08:15:23 Anxiety 78493006 Active 2021 Not Available [facility] 3 08:15:23 Osteoarthr itis 977096561 Active 2021 Not Available [facility] 3 08:15:23 Acute urinary tract infection 679654291 Active 2021 Not Available [facility] 3 08:15:23 Type 2 diabetes mellitus 41622893 Active 2021 Not Available [facility] 3 08:15:23 Flank pain 882574693 Active 2022 Not Available [facility] 3 08:15:23 Increased frequency of urination 757038283 Active 2022 Chaparrita Herron RN [facility], [place] [facility] 3 14:12:09 Problem Notes None recorded. Procedures Surgical History Date Name Laterality Status Provider Name and Address Organization Details Recorded Time 12/20/19 19 Most Recent Bone Density completed Not Available [facility] 11/14/2022 04:43:02 10/30/19 19 Back Surgery completed Not Available [facility] 023 04:43:09 11/20/19 18 Cataract Surgery completed Not Available [facility] 09/2022 04:43:09 04/18/20 10 Date of Last Colonoscopy completed Not Available [facility] 11/14/2022 04:43:02 Cataract Surgery completed Not Available [facility] 11/14/2022 04:43:09 Tonsillectomy completed Not Available [facility] 11/14/2022 04:43:09 completed Not Available [facility] 0 11/14/2022 04:43:09 Unlisted px phrnx adnd/tnsl completed Not Available [facility] 11/14/2022 04:43:09 biopsy of liver completed Not Available [facility] 11/14/2022 04:43:09 [facility]endectomy [facility]14[facility] 04:43:09 total knee replacement completed Not Available [facility] 11/14/2022 04:43:09 completed Not Available [facility] 0 11/14/2022 04:43:09 Carpal tunnel completed Not Available [facility] 11/14/2022 04:43:09 Imaging Results None recorded. [...] administ ered by the provider 06/30 completed [facility]: [phone] 01-03 Not Available Not Available Not [...] administ ered by the provider 06/30 completed [facility]: [phone] 03-02 Not Available Not Available Not [...] Available No t Available [facility] with Large Mask USE WITH INHALER DIRECTED [...] Relief 50 mcg/actua tion nasal spray,seng pension [place] 1 spray every day by intranas al route. 07/30 completed Not Available Not Available Not Available Fluvirin 5709-4403 45 mcg (15 mcg x 3)/0.5 mL intramusc ular suspensio n ADM 0.5ML IM UTD 09/20 completed Not Available Not Available Not Available Restasis MultiDose 0.05 % eye drops active Not Available Not Available No t Available Fluvirin 6141-5176 45 mcg (15 mcg x 3)/0.5 mL [...] Available Not Available Not Available Fluzone High-Dose 4704-2833 (PF) 180 mcg/0.5 mL intramusc ular syringe ADM 0.5ML IM UTD 06/10 completed Not Available Not Available Not Available Fluzone High-Dose (PF) 180 mcg/0.5 mL intramusc ular syringe ADM 0.5ML IM UTD 10/27 completed Not Available Not Available Not Available Fluzone High-Dose Quad 2019- (PF) 240 mcg/0.7 mL IM syringe ADM 0.7ML IM UTD 03/30 completed Not Available Not Available Not Available Vitals Date Recorded Body mass index (BMI) Body height Pain severity - 0-10 verbal numeric rating [Score] - Reported Heart rate Body temperature Body weight Systolic And Diastolic Provider Name and Address Organization Details Last Updated DateTime 2 31.5 kg/m2 160.02 cm 0 84 /min 97.6 [degF] 44154.4 4 g 124/70 mm[Hg] Not Available [facility] 3 04:44:38 Date Recorded Body height Body mass index (BMI) Body weight Body temperature Heart rate Systolic And Diastolic Provider Name and Address Organization Details Last Updated DateTime 3 160.02 cm 31.5 kg/m2 50994.4 4 g 97.6 [degF] 88 /min 124/82 mm[Hg] DARLENE Khan [facility] [employer] [facility] 3 14:23:34 Date Recorded Body mass index (BMI) Body height Heart rate Body temperature Body weight Systolic And Diastolic Provider Name and Address Organization Details Last Updated DateTime 2 30.5 kg/m2 160.02 cm 104 /min 96.5 [degF] 34872.8 9 g 122/60 mm[Hg] Not Available [facility] 3 04:44:38 Date Recorded Body height Body mass index (BMI) Body weight Body temperature Heart rate Systolic And Diastolic Provider Name and Address Organization Details Last Updated DateTime 3 160.02 cm 31.4 kg/m2 08423.8 5 g 97.6 [degF] 90 /min 126/82 mm[Hg] DARLENE Khan [facility] [employer] [facility] 3 12:01:30 Date Recorded Body mass index (BMI) Body height Heart rate Body temperature Body weight Systolic And Diastolic Provider Name and Address Organization Details Last Updated DateTime 2 30.1 kg/m2 160.02 cm 85 /min 97.9 [degF] 77085.7 g 132/84 mm[Hg] Not Available [facility] 3 04:44:38 Social History Question Answer Notes LastModified by Organizat ion Details LastModified Time Tobacco Smoking Status Former Smoker quit in 1980's Not Available [facility] 11/14/2022 04:12:48 Do You Have An Advance Directive? Yes MIGRATION.29864 [id number] Information not available 11/14/2022 Are You Blind Or Do You Have Difficulty Seeing? No MIGRATION.98550 81826 Information not available 11/14/2022 What Is Your Level Of Caffeine Consumption? Occasional MIGRATION.95563 08622 Information not available 11/14/2022 How Much Tobacco Do You Chew? None MIGRATION.98574 74052 Information not available 11/14/2022 In The 14 Days Before Symptom Onset, Have You Had Close Contact With A Laboratory-confi rmed COVID-19 While That Case Was Ill? No MIGRATION.15216 14797 Information not available 11/14/2022 In The 14 Days Before Symptom Onset, Have You Had Close Contact With A Person Who Is Under Investigation For COVID-19 While That Person Was Ill? No MIGRATION.04632 69459 Information not available 11/14/2022 Are You Deaf Or Do You Have Serious Difficulty Hearing? No MIGRATION.20931 31948 Information not available 11/14/2022 What Type Of Diet Are You Following? REGULAR MIGRATION.57878 39742 Information not available 11/14/2022 Which Illicit Or Recreational Drugs Have You Used? None MIGRATION.17160 69654 Information not available 11/14/2022 Have There Been Any Changes To Your Family Or Social Situation? No MIGRATION.29891 30977 Information not available 11/14/2022 What Is The Fluoride Status Of Your Home? Unknown MIGRATION.16223 56009 Information not available 11/14/2022 Are There Any Guns Present In Your Home? No MIGRATION.56037 36067 Information not available 11/14/2022 Do You Use Insect Repellent Routinely? No MIGRATION.50312 11001 Information not available 11/14/2022 Where Do You Live? [place] MIGRATION.02215 03135 Information not available 11/14/2022 Do You Have A Medical Power Of Dental Secretary? Yes MIGRATION.72235 57844 Information not available 11/14/2022 What Was The Date Of Your Most Recent Tobacco Screening? 04/25/2023 [email or web address] Information not available 04/25/2023 Do You Have Any Pets? No MIGRATION.10711 70905 Information not available 11/14/2022 What Is Your Relationship Status? MIGRATION.15032 22621 Information not available 11/14/2022 Do You Use Your Seat Belt Or Car Seat Routinely? Yes MIGRATION.75517 66433 Information not available 11/14/2022 Do You Have Smoke And Carbon Monoxide Detectors In Your Home? Yes MIGRATION.94387 51119 Information not available 11/14/2022 Are You Passively Exposed To Smoke? No MIGRATION.90086 71656 Information not available 11/14/2022 Are There Any Smokers In Your House? No MIGRATION.20932 23595 Information not available 11/14/2022 How Much Tobacco Do You Smoke? No MIGRATION.08552 86841 Information not available 11/14/2022 What Types Of Sporting Activities Do You Participate In? None MIGRATION.62632 92078 Information not available 11/14/2022 Do You Use Sunscreen Routinely? No MIGRATION.08734 23290 Information not available 11/14/2022 Has Tobacco Cessation Counseling Been Provided? No MIGRATION.06173 68132 Information not available 11/14/2022 Have You Recently Traveled Abroad? No MIGRATION.54016 49319 Information not available 11/14/2022 Do You Have Difficulty Walking Or Climbing Stairs? No MIGRATION.67518 87510 Information not available 11/14/2022 Do You Have Any Dietary Restrictions? No MIGRATION.95877 13872 Information not available 11/14/2022 Sex: Female Functional Status Question Answer Note LastModified by Organizat ion Details LastModified Time Do you use any illicit or recreational drugs? No MIGRATION.585981 7844 Information not available 11/14/2022 Do you or have you ever used any other forms of tobacco or nicotine? No MIGRATION.026843 5486 Information not available 11/14/2022 What is your level of alcohol consumption? None MIGRATION.704378 8702 Information not available 11/14/2022 Do you or have you ever used smokeless tobacco? Never used smokeless tobacco MIGRATION.030672 5360 Information not available 11/14/2022 Do you have transportation difficulties? No MIGRATION.030254 1897 Information not available 11/14/2022 Are you able to walk independently without assistance or assistive devices? YESWOREST MIGRATION.975592 5310 Information not available 11/14/2022 Do you have difficulty doing errands alone? No MIGRATION.073844 7084 Information not available 11/14/2022 Are you able to care for yourself independently? Yes MIGRATION.407404 1611 Information not available 11/14/2022 What is your occupation? retired MIGRATION.115901 8536 Information not available 11/14/2022 Do you have difficulty dressing, bathing, grooming, or toileting? No MIGRATION.558916 9684 Information not available 11/14/2022 Do you or have you ever used e-cigarettes or vape? Never used electronic cigarettes MIGRATION.208952 4726 Information not available 11/14/2022 What is your exercise level? Occasional MIGRATION.188268 8103 Information not available 11/14/2022 Mental Status Question Answer Note LastModified by Organizat ion Details LastModified Time Do you have difficulty concentrating, remembering or making decisions? No MIGRATION.840601116 6 Information not available 11/14/2022 Family History Relationship Description Onset Age of this Age Resolved Age Notes LastModified by Organization Details LastModified Time Mother Disorder of thyroid gland MIGRATION.387 [id number] Not available 11/14/2022 04:43:12 Father Cerebrovascu lar accident MIGRATION.005 [id number] Not available 11/14/2022 04:43:12 Brother Parkinson's disease 76 MIGRATION.844 6338534 Not available 11/14/2022 04:43:12 Brother Malignant neoplasm of eye MIGRATION.122 [id number] Not available 11/14/2022 04:43:13 Brother Transient cerebral ischemia 79 MIGRATION.084 7395333 Not available 11/14/2022 04:43:13 Brother Chronic obstructive pulmonary disease 80 MIGRATION.331 1446479 Not available 11/14/2022 04:43:13 Brother Transient cerebral ischemia MIGRATION.885 [id number] Not available 11/14/2022 04:43:13 Medical History Condition Response NERVE DISEASE N BLINDNESS N RHEUMATIC FEVER N KIDNEY STONES N BLADDER PROBLEMS N MRSA N OTHER # 1 N POLIO N LUNG DISEASE/DISORDER Y COPD N RADIATION / CHEMOTHERAPY N Other # 2 N BLOOD DISEASES N EAR OR HEARING PROBLEMS N MUMPS N BOWEL PROBLEMS N DEPRESSION (INCLUDING POST ) Y STROKE/TIA N ULCERS N BENIGN PROSTATIC HYPERPLASIA [...] mcg/0.3 mL dose 1 completed Not Available [facility] 04/26/2023 08:15:23 Influenza, high-dose, trivalent, PF 0 completed Not Available [facility] 04/26/2023 08:15:23 Influenza, high-dose, trivalent, PF 9 completed Not Available [facility] 04/26/2023 08:15:23 influenza, unspecified formulation 8 completed Not Available [facility] 04/26/2023 08:15:23 Influenza, split virus, quadrivalent, preservative 7 completed Not Available [facility] 04/26/2023 08:15:23 Influenza, split virus, quadrivalent, preservative 6 completed Not Available [facility] 04/26/2023 08:15:23 Influenza, high-dose, trivalent, PF 2 completed Not Available [facility] 04/26/2023 08:15:23 COVID-19, mRNA, LNP-S, PF, 30 mcg/0.3 mL dose 1 completed Not Available [facility] 04/26/2023 08:15:23 Past Encounters Encounter ID Performer Location Encounter Start Date Encounter Closed Date Diagnosis/Indication Diagnosis SNOMED-CT Code Diagnosis ICD10 Code Diagnosis IMO Codes Diagnosis Note [id number] Edna Palomares MD [facility] [place] [address] [place] [address] 03/30/2021 00:00:00 03/30/2021 22:46:42 [id number] Edna Palomares MD [facility] [address] [facility] [address] [place] [address] 04/07/2021 00:00:00 04/09/2021 21:43:05 [id number] [facility] [place] [address] [place] [address] 07/19/2021 00:00:00 07/19/2021 13:13:22 [id number] Edna Palomares MD [facility] Internal Med [place] [address] [place] [address] y , [place] [address] 11/23/2021 00:00:00 12/17/2021 11:19:11 [id number] Edna Palomares MD [facility] [place] [address] [place] [address] 03/29/2022 00:00:00 03/31/2022 17:22:48 [id number] Edna Palomares MD [facility] Internal [facility] [place] [address] [place] [address] [place] [address] 07/31/2022 00:00:00 08/11/2022 15:11:13 [id number] Edna Palomares MD [facility] Internal Med [place] [address] [facility] [place] [address] 12/04/2022 14:10:34 12/04/2022 15:50:24 Diabetes mellitus 33694571 E11.9 Hyperlipidemia 28828247 E78.5 Hypothyroidism 06357633 E03.9 Flank pain 650622218 R10 .9 Anxiety 98500045 F41.9 [id number] Edna Paolmares MD [facility] Internal [facility] [place] [address] [facility] [place] [address] 04/25/2023 11:53:28 04/25/2023 12:56:34 Diabetes mellitus 38299510 E11.9 Hyperlipidemia 02023799 E78.5 Long-term drug therapy 149971457 Z79.899 Osteoarthritis 316037093 M19.90 Anxiety 58481784 F41.9 Health Concerns Section Related Observation LastModified by Organization Detai ls LastModified Time None Recorded Concern Status LastModified by Organization Details LastModified Time None Recorded Advance Directives Directive Y: Payers Insurance Date Sequence Insurance Name Policy Number Policy Garcia Covered Member ID Garcia Member ID Guarantor Name 09/02/2023 1 [place] XXX Latoya Galvan [id number] Nancy Galvan 09/02/2023 2 [employer] (MEDICARE SUPPLEMENT) Latoay Galvan [id number] Nancy Galvan Notes Date Note Type Note [...] that has severe dementia. Edna Palomares MD [address] [place] [address] [address], [place], [address], [facility] 12/04/2022 22:28:56 04/25/2023 text/html Diabetes no polyphagia no polydipsia. Hypothyroid no heat or cold intolerance. Anxiety high dealing with that has severe dementia. About the same as far as anxiety Edna Palomares MD [address] [place] [address], [facility] [address], [place], [address], [facility] 07/14/2023 18:06:15 OBGyn Episode No OBEpisode recorded.
--- OUTSIDE RECORDS SUMMARY | 2025-07-14 17:50 | XMS_ITS | Clinical Summary ---
Author Organization [facility] Address [address] [place] [address] Phone Care Team Providers Care Salesperson Books Name Role Phone Kvng Palomares MD Primary [...] on file Legal Sex Female 6:10 AM REPEATER CHIEF Gender Identity Not on file Sexual Orientation Not on file Occupation Industry Job Start Date Job End Date Not on file Not on file Not on file Not on file Not on file Not on file Not on file Not on file Last Filed Vital Signs Vital Sign Reading Time Taken Comments Blood Pressure 129/65 11/03/2018 1:24 AM REPEATER CHIEF Pulse 85 11/03/2018 1:24 AM REPEATER CHIEF Temperature 37.1 C (98.8 F) 11/03/2018 1:24 AM REPEATER CHIEF Respiratory Rate 16 11/03/2018 1:24 AM REPEATER CHIEF Oxygen Saturation 94% 11/03/2018 1:24 AM REPEATER CHIEF Inhaled Oxygen Concentration - - Weight 89.4 kg (197 lb 0.1 oz) 10/29/2018 7:00 P M REPEATER CHIEF Height 160 cm (5' 3) 10/29/2018 7:00 PM REPEATER CHIEF Body Mass Index 34.9 10/29/2018 7:00 PM REPEATER CHIEF Plan of Treatment Health Maintenance Due Date [...] 6 MONTHS 08/14/2020 02/12/2020 INFLUENZA VACCINE (#1) 2025 0, 08/04/2019, 05/17/2018, Additional history exists RSV VACCINE (60+ or ) (1 - 1-dose 75+ series) 2027 Medical Devices Implanted Type Area Barber Shop Operator Device Identifier Shelf Expiration Date Model / Serial / Lot Sealant Floseal 10ml [id number] - [id number] Implanted:Qty: 1 on 06/06/2012 by Familia Carpenter MD at [facility] Biological CHAVIS- BIOSCIENCE 09/15/2013 [id number] / / [id number] Infuse Protein Kit [id number] - [id number] Implanted:Qty: 1 on 06/06/2012 at [facility] Spine Lumbar MEDTRONIC- SOFAMOR DANEK 11/14/2014 9853476 / / [id number] Sealant Floseal 10ml [id number] - [id number] Implanted:Qty: 1 on 06/06/2012 by Familia Carpenter MD at [facility] Biological N/A: Spine Lumbar CHAVIS- BIOSCIENCE 09/15/2013 8986476 / / [id number] Log - Bone & Biologicals - 1 - Bone Cube Canc 15ml [id number] Implanted:Qty: 1 on 06/06/2012 at [facility] Bone Spine Lumbar ALLOSOURCE 05/23/2016 [id number] / [id number] / Log - Bone & Biologicals - 1 - Bone Cube Canc 15ml [id number] Implanted:Qty: 1 on 06/06/2012 at [facility] Bone N/A: Spine Lumbar ALLOSOURCE 06/05/2016 [id number] / [id number] / Allgrft Spcr Lmnry T-Plif 11mm 609481 - [id number] 2 Implanted:Qty: 1 on 06/06/2012 by Familia Carpenter MD at [facility] Bone N/A: Spine Lumbar MUSCULOSKELETAL TRANSPLANT FOU 01/27/2015 550696 / [id number] / Cement [place] G-Hv 40g 453558 - [id number] Implanted:Qty: 1 on 01/05/2013 by Clarence Fuentes MD at [facility] Cement Right: Knee BIOMET INC 07/16/2014 997845 / / [id number] Hemostatic Surgiflo 8ml W/Thrombin 2994 - [id number] Implanted:Qty: 1 on 10/29/2018 by Familia Carpenter MD at [facility] Hemostatic N/A: Back J&J- ETHICON INC 02/14/2020 2994 / / [id number] Hemostatic Surgiflo 8ml W/Thrombin 2994 - [id number] Implanted:Qty: 1 on 10/29/2018 by Familia Carpenter MD at [facility] Hemostatic N/A: Back J&J- ETHICON INC 02/14/2020 2994 / / [id number] Hemostatic Surgiflo 8ml W/Thrombin 2994 - [id number] Implanted:Qty: 1 on 10/29/2018 by Familia Carpenter MD at [facility] Hemostatic N/A: Back J&J- ETHICON INC 02/14/2020 2994 / / [id number] Hemostatic Surgiflo 8ml W/Thrombin 2994 - [id number] Implanted:Qty: 1 on 10/29/2018 by Familia Carpenter MD at [facility] Hemostatic N/A: Back J&J- ETHICON INC 02/14/2020 2994 / / [id number] Comp Tib Cocr Finned 67mm 719168 - [id number] Implanted:Qty: 1 on 01/05/2013 by Clarence Fuentes MD at [facility] Knee Right: Knee BIOMET INC 11/13/2022 237830 / / [id number] Patella 3peg Series A 026896 - [id number] Implanted:Qty: 1 on 01/05/2013 by Clarence Fuentes MD at [facility] Knee Right: Knee BIOMET INC 07/16/2017 689724 / / [id number] Comp Fem Vngrd Cr Intrlk Rt 65mm 009958 - [id number] Implanted:Qty: 1 on 01/05/2013 by Clarence Fuentes MD at [facility] Knee Right: Knee BIOMET INC 11/13/2022 192887 / / [id number] Brng Tib Vng Cr 10x63/67 342492 - [id number] Implanted:Qty: 1 on 01/05/2013 by Clarence Fuentes MD at [facility] Knee Right: Knee BIOMET INC 10/16/2017 763018 / / [id number] Bryant Xpdm Crv W/Line 65mm 1797-71-065 - [id number] Implanted:Qty: 2 on 10/29/2018 by Familia Carpenter MD at [facility] Bryant N/A: Back J&J- DEPUY SPINE INC [id number] / / Description:load #39 sterilized 10/13/18 Screw Exp Poly 7x45mm 1797-08-875 - [id number] Implanted:Qty: 2 on 06/06/2012 at [facility] Screw N/A: Spine Lumbar J&J- DEPUY SPINE INC 198 / / Description:Load 47, 2011 Screw Exp Poly 6x45mm 17903-27-795 - [id number] Implanted:Qty: 4 on 10/29/2018 by Familia Carpenter MD at [facility] Screw N/A: Back J&J- DEPUY SPINE INC 854 / / Description:load #39 sterilized 10/13/18 Setscrew Inner 179 - [id number] Implanted:Qty: 6 on 10/29/2018 by Familia Carpenter MD at [facility] Screw N/A: Back J&J- DEPUY SPINE INC / / Description:load #39 sterilized 10/13/18 All Depuy spinal hardware was processed on requisition, [id number]. BuySimple Vivigen Matrix 10ml Bl-1500-003 - [id number] Implanted:Qty: 1 on 10/29/2018 by Familia Carpenter MD at [facility] Tissue N/A: Back LIFENET 10/14/2019 -1500-003 / [id number] / Description:REQ#[id number] [facility] Vivigen Matrix 10ml -1500-003 - [id number] Implanted:Qty: 1 on 10/29/2018 by Familia Carpenter MD at [facility] Tissue N/A: Back LIFENET 10/14/2019 -1500-003 / [id number] / Description:REQ#[id number] Explanted Type Area Barber Shop Operator Device Identifier Shelf Expiration Date Model / Serial / Lot Bryant Xpdm 5.5 Ti Prebnt 45mm 1797-72-045 - [id number] Implanted:Qty: 2 on 06/06/2012 at [facility] Explanted:Qty: 2 on 10/29/2018 by Familia Carpenter MD at [facility] Bryant N/A: Spine Lumbar J&J- DEPUY SPINE INC 5 / / Description:Load 47, er 2011 Screw Exp Poly 6x45mm 1796-12-645 - [id number] Implanted:Qty: 2 on 06/06/2012 at [facility] Explanted:Qty: 2 on 10/29/2018 by Familia Carpenter MD at [facility] Screw N/A: Spine Lumbar J&J- DEPUY SPINE INC 5 / / Description:Load 47, Septemb er [facility] - [id number] Implanted:Qty: 4 on 06/06/2012 at [facility] Explanted:Qty: 4 on 10/29/2018 by Familia Carpenter MD at [facility] Screw N/A: Spine Lumbar J&J- DEPUY SPINE INC 0 / / Description:Load 47, Sept er 2011 Insurance MEDICARE PART A AND B Advance Directives For more information, please contact: [phone] Documents on File Type Date Recorded Patient Financial Coach Expl anation Advance Directive Living Will 10/13/2018 [...] 7:35 AM 01/05/2013 8:19 AM Care Teams Salesperson Books Relationship Specialty Start Date End Date Kvng Palomares MD [address] [place] [address] PCP - General Internal Medicine 10/24/18
[2025-07-14 19:19] LABS: Alanine Aminotransferase 32 U/L (6-35); Albumin Level 4.6 g/dL (3.5-5.1); Alkaline Phosphatase 136 U/L (38-126); Anion Gap 12 mmol/L (4-12); Aspartate Amino Transferase 38 U/L (14-36); Bilirubin,Total 0.7 mg/dL (0.2-1.3); Blood Urea Nitrogen 15 mg/dL (7-17); Calcium 9.7 mg/dL (8.4-10.2); Carbon Dioxide 25 mmol/L (22-30); Chloride 98 mmol/L (98-107); Cholesterol 269 mg/dL (0-200); Estimated Glomerular Filt Rate > 60; Glucose 189 mg/dL (65-110); HDL Direct 60 mg/dL; Potassium 4.6 mmol/L (3.4-5.0); Sodium 135 mmol/L (137-145); Total Protein 8.7 g/dL (6.3-8.2); Triglycerides 646 mg/dL (<150)
== END 2025-07-14 15:58 | disposition home or self-care (01) ==
LOC: ANHLAB 15:59
PROVIDERS: PCP Internal Medicine; Visit Provider Internal Medicine
DX: E11.9 Type 2 diabetes mellitus without complications (principal); I10 Essential (primary) hypertension
CPT/HCPCS: 36415; 80053; 80061; 82043; 82565; 83036; 85025

== ENCOUNTER 2025-07-22 11:49 | Outpatient (CLI) | payer MEDICARE, SELFPAY ==
--- OUTSIDE RECORDS SUMMARY | 2009-08-22 03:45 | XMS_ITS | Continuity of Care Document ---
Author Organization [facility] Address [address] [facility] [address] [place] [address] Phone Care Team Providers Care General Magistrate Name Role Phone Nguyễn Horne Unavailable Unavailable Procedures Procedure Date Office/outpatient Visit, Est Eye Exam & Treatment Refraction Advance Directives Directive Yes / No Effective Date File Name No Information Encounters Encounter Description Practice Location Reason(s) For Visit Diagnoses Date Provider Providers Copied on Encounter Office/outpat ient Visit, Est [facility], [address] [place] [address] [address], [place], [place], [id number], tel:[phone] [facility] No Information [address] Coleen Adrian. [address] , [address], [place], [place], [facility], . tel:[phone] [facility], [address] [place] [address] [address], [place], [place], [id number], tel:[phone] [facility] No Information [address] Coleen Adrian. [address] , [address], [place], [place], [facility], [place]. tel:[phone] Family History Family Member Type Diagnosis Age At Onset No Information Payers Payer name Insurance type Covered green party ID Authoriza tion(s) No Information Social History Type Description Quantity Date Captured Comments Sex Female Smoking Status No Information Chief Complaint And Reason For Visit No Information Reason For Referral Reason For Referral No Information History Of Present Illness Encounter Date Complaint History Of Prese nt Illness No Information Functional Status Date Functional Assessmen t No Information Instructions Date Instruction Additional Infor mation No Information Assessments Type Assessment Date No Information Patient Care Teams Name Effective Dates (start - stop) Status Members No Information
--- OUTSIDE RECORDS SUMMARY | 2020-08-08 05:00 | XMS_ITS | Continuity of Care Document ---
Author Organization [facility] Address [address] [place] [address] Phone Care Team Providers Care Lab Coordinator Name Role Phone Steffen Milan MD Unavailable Unavailable Allergies, Adverse Reactions, Alerts Substance Reaction Status Criticality No Known Allergies Active No Inform ation Medications Medication Instructions Dosage Effective Dates (start - stop) Status Comments Keflex 500 mg capsule take 1 capsule by oral route every 8 hours 500 MG - Active Take 1 capsule prior to dental visit, then 1 capsule every 8 hours thereafter. FISH OIL ORAL CAPSULE take 1 capsule by oral route every day - Active paroxetine 10 mg tablet take 1 tablet by oral route every day 10 MG - Active atorvastatin 40 mg tablet take 1 tablet by oral route every day 40 MG - Active levothyroxine 75 mcg tablet take 1 tablet by oral route every day 75 MCG - Active metformin 500 mg tablet - Active meloxicam 15 mg tablet - Active SYMBICORT (unknown strength) Not Available - Active CHILDREN'S ASPIRIN (unknown strength) Not Available - Active TIROSINT (unknown strength) Not Available - No Longer Active Procedures Procedure Date OFFICE/OUTPATIENT VISIT NEW OFFICE/OUTPATIENT VISIT EST OFFICE/OUTPATIENT VISIT EST OFFICE/OUTPATIENT VISIT EST Advance Directives Directive Yes / No Effective Date File Name No Information Encounters Encounter Description Practice Location Reason(s) For Visit Diagnoses Date Provider Providers Copied on Encounter OFFICE/OUTPA TIENT VISIT NEW [facility], [address], [place], [address], [place] tel:[phone] [facility] Body mass index [BMI] 35.0-35.9, adultSpinal stenosis, lumbar region without neurogenic claudicationPos tlaminectomy syndrome, not elsewhere classified 0 Bjorn Bourne . [address], [place], [place], [address] . tel: [phone] Referring Provider: Familia Carpenter, [address] [facility] [address], [place], [address]. tel:[phone] OFFICE/OUTPA TIENT VISIT [facility], [address] [place] [address] [address], [place], [address], [place] tel:[phone] [facility] Follow Up of LEFT KNEE (chief complaint) Medial meniscus tearSciatica 5 Gina Lima. [address] [place], [place], [id number] . tel: [phone] OFFICE/OUTPA TIENT VISIT [facility], [address] [facility] [address], [place], [address], [place] tel:[phone] [facility] LT KNEE PAIN (chief complaint) Medial meniscus tearPrimary localized osteoarthrosis, lower leg 5 Bill Ko. [address] [facility] [address], [place], [place], [address] . tel: [phone] OFFICE/OUTPA TIENT VISIT [facility], [address] [place] [address] [address], [place], [address], [place] tel:[phone] [facility] History of total knee replacement 3 Gina Lima. [address] [place], [place], [address] . tel: [phone] Referring Provider: Jas Burden, [address] [facility] [address], [place], [address] . tel:[phone] Family History Family Member Type Diagnosis Age At Onset Brother Problem (finding) Alive and well Brother Problem (finding) Thyroid disorder Brother Problem (finding) hypertension Payers Payer name Insurance type Covered constitution party ID Authoriza tion(s) Medicare E2 OT [id number] [employer] OT [id number] Social History Type Description Quantity Date Captured Comments Alcohol Use Details beer 1 beer yearly Caffeine Use Details Unknown Tobacco Use Status Ex-cigarette smoker 020 Smoking Status Former smoker Smoking Tobacco Use Details Cigarette: Age Stopped: 30 Cigarette: No Details Available Sex Female Vital Signs Date / Time: Height Weight BMI Pulse Rate Blood Pressure Temperature Respiratory Rate Body Surface Area Head Circumference Head Circ. Percentile Wt./Laz. Percentile BMI percentile Pulse Ox Inhaled Ox 1:04 PM 63.00 in 83.461 kg (184.00 lbs) 32.5 9 kg/m eter (2) Chief Complaint And Reason For Visit No Information Reason For Referral Reason For Referral No Information Plan Of Treatment Date Type Action Status Referral Ordered: INJ FORAMEN EPIDURAL L/S RT spine, lumbar Appointment date/timeframe: 08/08/2020 ordered Referral Ordered: RADEX KNE 3 VIEWS LT ordered History Of Present Illness Encounter Date Complaint History Of Prese nt Illness Follow Up of LEFT KNEE LT KNEE PAIN Functional Status Date Functional Assessmen t Pain Score 0/10 Instructions Date Instruction Additional Infor mation Giving encouragement to exercise Related to Body mass index [BMI] 35.0-35.9, adult Elevate extremity above heart. R elated to Medial meniscus tear Apply ice as tolerated. Related to Medial meniscus tear activity as tolerated Related to Osteoarthritis knee apply heating pad or ice as tolerated Related to Osteoarthritis knee Assessments Type Assessment Date assessment Body mass index [BMI] 35.0-35.9, adult assessment Spinal stenosis, lumbar region w ithout neurogenic claudication assessment Postlaminectomy syndrome, not el sewhere classified Patient Care Teams Name Effective Dates (start - stop) Status Members No Information
[2025-07-22 12:39] LABS: MALB Creatinine Ratio 17.6 mg/g (0-30)
--- OUTSIDE RECORDS SUMMARY | 2025-07-22 19:21 | XMS_ITS | Clinical Summary ---
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 Gender Identity Not on file Sexual Orientation Not on file Occupation Industry Job Start Date Job End Date Not on file Not on file Not on file Not on file Not on file Not on file Not on file Not on file Last Filed Vital Signs Vital Sign Reading Time Taken Comments Blood Pressure 129/65 11/03/2018 1:24 AM FUNERAL SERVICE MANAGER Pulse 85 11/03/2018 1:24 AM FUNERAL SERVICE MANAGER Temperature 37.1 C (98.8 F) 11/03/2018 1:24 AM FUNERAL SERVICE MANAGER Respiratory Rate 16 11/03/2018 1:24 AM FUNERAL SERVICE MANAGER Oxygen Saturation 94% 11/03/2018 1:24 AM FUNERAL SERVICE MANAGER Inhaled Oxygen Concentration - - Weight 89.4 kg (197 lb 0.1 oz) 10/29/2018 7:00 P M FUNERAL SERVICE MANAGER Height 160 cm (5' 3) 10/29/2018 7:00 PM FUNERAL SERVICE MANAGER Body Mass Index 34.9 10/29/2018 7:00 PM FUNERAL SERVICE MANAGER Plan of Treatment Health Maintenance Due Date [...] series) 2027 Medical Devices Implanted Type Area Services Tech Device Identifier Shelf Expiration Date Model / Serial / Lot Sealant Floseal 10ml [id number] - [id number] Implanted:Qty: 1 on 06/06/2012 by Familia Carpenter MD at [facility] Biological CHAVIS- BIOSCIENCE 09/15/2013 9205975 / / [id number] Infuse Protein Kit 7997280 - [id number] Implanted:Qty: 1 on 06/06/2012 at [facility] Spine Lumbar MEDTRONIC- SOFAMOR DANEK 11/14/2014 2226140 / / [id number] Sealant Floseal 10ml 8743261 - [id number] Implanted:Qty: 1 on 06/06/2012 by Familia Carpenter MD at [facility] Biological N/A: Spine Lumbar CHAVIS- BIOSCIENCE 09/15/2013 5327830 / / [id number] Log - Bone & Biologicals - 1 - Bone Cube Canc 15ml [id number] Implanted:Qty: 1 on 06/06/2012 at [facility] Bone Spine Lumbar ALLOSOURCE 05/23/2016 36051770 / [id number] / Log - Bone & Biologicals - 1 - Bone Cube Canc 15ml [id number] Implanted:Qty: 1 on 06/06/2012 at [facility] Bone N/A: Spine Lumbar ALLOSOURCE 06/05/2016 88169290 / [id number] / Allgrft Spcr Lmnry T-Plif 11mm 008193 - [id number] Implanted:Qty: 1 on 06/06/2012 by Familia Carpenter MD at [facility] Bone N/A: Spine Lumbar MUSCULOSKELETAL TRANSPLANT FOU 01/27/2015 716962 / [id number] / Cement [place] G-Hv 40g 004907 - [id number] Implanted:Qty: 1 on 01/05/2013 by Clarence Fuentes MD at [facility] Cement Right: Knee BIOMET INC 07/16/2014 009675 / / [id number] Hemostatic Surgiflo 8ml W/Thrombin 2994 - [id number] Implanted:Qty: 1 on 10/29/2018 by Familia Carpenter MD at [facility] Hemostatic N/A: Back J&J- ETHICON INC 02/14/2020 2994 / / [id number] Hemostatic Surgiflo 8ml W/Thrombin 2994 - [id number] Implanted:Qty: 1 on 10/29/2018 by Familia Carpenter MD at [facility] Hemostatic N/A: Back J&J- ETHICON INC 02/14/2020 2994 / / [id number] Hemostatic Surgiflo 8ml W/Thrombin 2994 - [id number] Implanted:Qty: 1 on 10/29/2018 by Familia Carpenter MD at [facility] Hemostatic N/A: Back J&J- ETHICON INC 02/14/2020 2994 / / [id number] Hemostatic Surgiflo 8ml W/Thrombin 2994 - [id number] Implanted:Qty: 1 on 10/29/2018 by Familia Carpenter MD at [facility] Hemostatic N/A: Back J&J- ETHICON INC 02/14/2020 2994 / / [id number] Comp Tib Cocr Finned 67mm 207743 - [id number] Implanted:Qty: 1 on 01/05/2013 by Clarence Fuentes MD at [facility] Knee Right: Knee BIOMET INC 11/13/2022 268358 / / [id number] Patella 3peg Series A 564713 - [id number] Implanted:Qty: 1 on 01/05/2013 by Clarence Fuentes MD at [facility] Knee Right: Knee BIOMET INC 07/16/2017 142938 / / [id number] Comp Fem Vngrd Cr Intrlk Rt 65mm 499306 - [id number] Implanted:Qty: 1 on 01/05/2013 by Clarence Fuentes MD at [facility] Knee Right: Knee BIOMET INC 11/13/2022 762667 / / [id number] Brng Tib Vng Cr 10x63/67 101128 - [id number] Implanted:Qty: 1 on 01/05/2013 by Clarence Fuentes MD at [facility] Knee Right: Knee BIOMET INC 10/16/2017 525184 / / [id number] Bryant Xpdm Crv W/Line 65mm 1797-71-065 - [id number] Implanted:Qty: 2 on 10/29/2018 by Familia Carpenter MD at [facility] Bryant N/A: Back J&J- DEPUY SPINE INC [id number] / / Description:load #39 sterilized 10/13/18 Screw Exp Poly 7x45mm 1797-08-365 - [id number] Implanted:Qty: 2 on 06/06/2012 at [facility] Screw N/A: Spine Lumbar J&J- DEPUY SPINE INC 885 / / Description:Load 47, 2011 Screw Exp Poly 6x45mm 17903-27-205 - [id number] Implanted:Qty: 4 on 10/29/2018 by Familia Carpenter MD at [facility] Screw N/A: Back J&J- DEPUY SPINE INC 954 / / Description:load #39 sterilized 10/13/18 Setscrew Inner 179 - [id number] Implanted:Qty: 6 on 10/29/2018 by Familia Carpenter MD at [facility] Screw N/A: Back J&J- DEPUY SPINE INC / / Description:load #39 sterilized 10/13/18 All Depuy spinal hardware was processed on requisition, [id number]. Diarize Vivigen Matrix 10ml Bl-1500-003 - [id number] Implanted:Qty: 1 on 10/29/2018 by Familia Carpenter MD at [facility] Tissue N/A: Back LIFENET 10/14/2019 -1500-003 / [id number] 1 / Description:REQ#[id number] [facility] Vivigen Matrix 10ml -1500-003 - [id number] Implanted:Qty: 1 on 10/29/2018 by Familia Carpenter MD at [facility] Tissue N/A: Back LIFENET 10/14/2019 -1500-003 / [id number] / Description:REQ#[id number] Explanted Type Area Services Tech Device Identifier Shelf Expiration Date Model / Serial / Lot Bryant Xpdm 5.5 Ti Prebnt 45mm 1797-72-045 - [id number] Implanted:Qty: 2 on 06/06/2012 at [facility] Explanted:Qty: 2 on 10/29/2018 by Familia Carpenter MD at [facility] Bryant N/A: Spine Lumbar J&J- DEPUY SPINE INC 5 / / Description:Load 47, er 2011 Screw Exp Poly 6x45mm 1796-12-645 - [id number] Implanted:Qty: 2 on 06/06/2012 at [facility] Explanted:Qty: 2 on 10/29/2018 by Familia Carpenter MD at [facility] Screw N/A: Spine Lumbar J&J- DEPUY SPINE INC 5 / / Description:Load 47, Septemb er 2011 [facility]-000 - [id number] Implanted:Qty: 4 on 06/06/2012 at [facility] Explanted:Qty: 4 on 10/29/2018 by Familia Carpenter MD at [facility] Screw N/A: Spine Lumbar J&J- DEPUY SPINE INC 0 / / Description:Load 47, Sept er 2011 Insurance MEDICARE PART A AND B Advance Directives For more information, please contact: [phone] Documents on File Type Date Recorded Patient Acid Filler Expl anation Advance Directive Living Will 10/13/2018 [...] 7:35 AM 01/05/2013 8:19 AM Care Teams Eligibility Supervisor Relationship Specialty Start Date End Date Kvng Palomares MD [address] [place] [address] PCP - General Internal Medicine 10/24/18
== END 2025-07-22 11:50 | disposition home or self-care (01) ==
LOC: ANHLAB 11:50
PROVIDERS: PCP Internal Medicine; Visit Provider Internal Medicine
DX: E11.9 Type 2 diabetes mellitus without complications (principal); I10 Essential (primary) hypertension
CPT/HCPCS: 82043

== ENCOUNTER 2025-08-04 08:31 | Outpatient (CLI) | payer MEDICARE, SELFPAY ==
--- OUTSIDE RECORDS SUMMARY | 2025-08-04 10:16 | XMS_ITS | Clinical Summary ---
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 Gender Identity Not on file Sexual Orientation Not on file Occupation Industry Job Start Date Job End Date Not on file Not on file Not on file Not on file Not on file Not on file Not on file Not on file Last Filed Vital Signs Vital Sign Reading Time Taken Comments Blood Pressure 129/65 11/03/2018 1:24 AM RIVET HEATER GAS Pulse 85 11/03/2018 1:24 AM RIVET HEATER GAS Temperature 37.1 C (98.8 F) 11/03/2018 1:24 AM RIVET HEATER GAS Respiratory Rate 16 11/03/2018 1:24 AM RIVET HEATER GAS Oxygen Saturation 94% 11/03/2018 1:24 AM RIVET HEATER GAS Inhaled Oxygen Concentration - - Weight 89.4 kg (197 lb 0.1 oz) 10/29/2018 7:00 P M RIVET HEATER GAS Height 160 cm (5' 3) 10/29/2018 7:00 PM RIVET HEATER GAS Body Mass Index 34.9 10/29/2018 7:00 PM RIVET HEATER GAS Plan of Treatment Health Maintenance Due Date [...] series) 2027 Medical Devices Implanted Type Area Vacuum Metalizing Supervisor Device Identifier Shelf Expiration Date Model / Serial / Lot Sealant Floseal 10ml [id number] - [id number] Implanted:Qty: 1 on 06/06/2012 by Familia Carpenter MD at [facility] Biological CHAVIS- BIOSCIENCE 09/15/2013 2994811 / / [id number] Infuse Protein Kit 2513280 - [id number] Implanted:Qty: 1 on 06/06/2012 at [facility] Spine Lumbar MEDTRONIC- SOFAMOR DANEK 11/14/2014 9168116 / / [id number] Sealant Floseal 10ml 1256030 - [id number] Implanted:Qty: 1 on 06/06/2012 by Familia Carpenter MD at [facility] Biological N/A: Spine Lumbar CHAVIS- BIOSCIENCE 09/15/2013 7701680 / / [id number] Log - Bone & Biologicals - 1 - Bone Cube Canc 15ml [id number] Implanted:Qty: 1 on 06/06/2012 at [facility] Bone Spine Lumbar ALLOSOURCE 05/23/2016 97026631 / [id number] / Log - Bone & Biologicals - 1 - Bone Cube Canc 15ml [id number] Implanted:Qty: 1 on 06/06/2012 at [facility] Bone N/A: Spine Lumbar ALLOSOURCE 06/05/2016 16533383 / [id number] / Allgrft Spcr Lmnry T-Plif 11mm 737144 - [id number] Implanted:Qty: 1 on 06/06/2012 by Familia Carpenter MD at [facility] Bone N/A: Spine Lumbar MUSCULOSKELETAL TRANSPLANT FOU 01/27/2015 784663 / [id number] / Cement [place] G-Hv 40g 773569 - [id number] Implanted:Qty: 1 on 01/05/2013 by Clarence Fuentes MD at [facility] Cement Right: Knee BIOMET INC 07/16/2014 487716 / / [id number] Hemostatic Surgiflo 8ml W/Thrombin 2994 - [id number] Implanted:Qty: 1 on 10/29/2018 by Familia Carpenter MD at [facility] Hemostatic N/A: Back J&J- ETHICON INC 02/14/2020 2994 / / [id number] Hemostatic Surgiflo 8ml W/Thrombin 2994 - [id number] Implanted:Qty: 1 on 10/29/2018 by Familia Carpenter MD at [facility] Hemostatic N/A: Back J&J- ETHICON INC 02/14/2020 2994 / / [id number] Hemostatic Surgiflo 8ml W/Thrombin 2994 - [id number] Implanted:Qty: 1 on 10/29/2018 by Familia Carpenter MD at [facility] Hemostatic N/A: Back J&J- ETHICON INC 02/14/2020 2994 / / [id number] Hemostatic Surgiflo 8ml W/Thrombin 2994 - [id number] Implanted:Qty: 1 on 10/29/2018 by Familia Carpenter MD at [facility] Hemostatic N/A: Back J&J- ETHICON INC 02/14/2020 2994 / / [id number] Comp Tib Cocr Finned 67mm 965100 - [id number] Implanted:Qty: 1 on 01/05/2013 by Clarence Fuentes MD at [facility] Knee Right: Knee BIOMET INC 11/13/2022 187535 / / [id number] Patella 3peg Series A 232400 - [id number] Implanted:Qty: 1 on 01/05/2013 by Clarence Fuentes MD at [facility] Knee Right: Knee BIOMET INC 07/16/2017 436480 / / [id number] Comp Fem Vngrd Cr Intrlk Rt 65mm 128534 - [id number] Implanted:Qty: 1 on 01/05/2013 by Clarence Fuentes MD at [facility] Knee Right: Knee BIOMET INC 11/13/2022 540444 / / [id number] Brng Tib Vng Cr 10x63/67 955865 - [id number] Implanted:Qty: 1 on 01/05/2013 by Clarence Fuentes MD at [facility] Knee Right: Knee BIOMET INC 10/16/2017 486614 / / [id number] Bryant Xpdm Crv W/Line 65mm 1797-71-065 - [id number] Implanted:Qty: 2 on 10/29/2018 by Familia Carpenter MD at [facility] Bryant N/A: Back J&J- DEPUY SPINE INC [id number] / / Description:load #39 sterilized 10/13/18 Screw Exp Poly 7x45mm 1795-87-295 - [id number] Implanted:Qty: 2 on 06/06/2012 at [facility] Screw N/A: Spine Lumbar J&J- DEPUY SPINE INC 0-780 / / Description:Load 47, 2011 Screw Exp Poly 6x45mm 1793--105 - [id number] Implanted:Qty: 4 on 10/29/2018 by Familia Carpenter MD at [facility] Screw N/A: Back J&J- DEPUY SPINE INC 9-446 / / Description:load #39 sterilized 10/13/18 Setscrew Inner 179000 - [id number] Implanted:Qty: 6 on 10/29/2018 by Familia Carpenter MD at [facility] Screw N/A: Back J&J- DEPUY SPINE INC / / Description:load #39 sterilized 10/13/18 All Depuy spinal hardware was processed on requisition, [id number]. Ivantisigen Matrix 10ml Bl-1500-003 - [id number] Implanted:Qty: 1 on 10/29/2018 by Familia Carpenter MD at [facility] Tissue N/A: Back LIFENET 10/14/2019 [facility]1500-003 / [id number] 1 / Description:REQ#[id number] [facility] Vivigen Matrix 10ml [facility]1500-003 - [id number] Implanted:Qty: 1 on 10/29/2018 by Familia Carpenter MD at [facility] Tissue N/A: Back LIFENET 10/14/2019 [facility]1500-003 / [id number] / Description:REQ#[id number] Explanted Type Area Vacuum Metalizing Supervisor Device Identifier Shelf Expiration Date Model / Serial / Lot Bryant Xpdm 5.5 Ti Prebnt 45mm 1797-72-045 - [id number] Implanted:Qty: 2 on 06/06/2012 at [facility] Explanted:Qty: 2 on 10/29/2018 by Familia Carpenter MD at [facility] Bryant N/A: Spine Lumbar J&J- DEPUY SPINE INC 5 / / Description:Load 47, er 2011 Screw Exp Poly 6x45mm 1796-12-645 - [id number] Implanted:Qty: 2 on 06/06/2012 at [facility] Explanted:Qty: 2 on 10/29/2018 by Familia Carpenter MD at [facility] Screw N/A: Spine Lumbar J&J- DEPUY SPINE INC 5 / / Description:Load 47, Sept er 2011 Setscrew Inner 1797-02-000 - [id number] Implanted:Qty: 4 on 06/06/2012 at [facility] Explanted:Qty: 4 on 10/29/2018 by Familia Carpenter MD at [facility] Screw N/A: Spine Lumbar J&J- DEPUY SPINE INC 0 / / Description:Load 47, Sept er 2011 Insurance MEDICARE PART A AND B Advance Directives For more information, please contact: [phone] Documents on File Type Date Recorded 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
[2025-08-04 10:19] LABS: Cholesterol 186 mg/dL (0-200); HDL Direct 54 mg/dL; Triglycerides 267 mg/dL (<150)
== END 2025-08-04 08:32 | disposition home or self-care (01) ==
PROVIDERS: PCP Internal Medicine; Visit Provider Internal Medicine
DX: R89.9 Unspecified abnormal finding in specimens from other organs, systems and tissues (principal); I10 Essential (primary) hypertension
CPT/HCPCS: 36415; 80061